=== PATIENT | male | born 1965 | race African-American/Black ===

== ENCOUNTER 2016-12-24 23:42 | Inpatient (IN) | payer MEDICAID ==
[~2016-12-24] VITALS: Ht 172.7 cm; Wt 68.0 kg
[~2016-12-24 23:42] MED LIST: BACLOFEN10 MG GT; COLACE100 MG GT; COREG6.25 MG GT; LISINOPRIL5 MG GT; LOVENOX10 M4 SUBQ; NEXIUM20 M1 GT; ROBITUSSIN COU118 M4 GT; TYLENOL EXTRA500 MG GT; UTI-STAT L3875 MG/31 GT; VENTOLIN HFA18 GM INH
[2016-12-25] VITALS (8 sets, daily range): BP systolic 103–143; BP diastolic 55–80
--- NOTE | 2016-12-25 00:20 | Emergency Room Report ---
History of Present Illness General Chief Complaint: General Complaint Source: Medical Record, EMS Present Illness HPI This is a 51-year-old male with multiple medical problems. He has a history of previous CVA with right-sided weakness. Also has contracted has muscle spasm. He presents with chief complaint of shakiness and tremulous. 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 There was no reported fever or chills. No reported seizure activity. No nausea no vomiting. Allergies: Coded Allergies: No Known Allergies (Unverified , 05/31/16) Patient History Past Medical History: see triage record, old chart reviewed Past Surgical History: other Pertinent Family History: none Social History: Denies: smoking Immunizations: other Reviewed Nursing Documentation: PMH: Agreed, PSxH: Agreed Nursing Documentation-PMH Hx Cardiac Problems: Yes - Angina, HISTORY OF CARDIAC ARREST Hx Hypertension: Yes Hx Cerebrovascular Accident: Yes Review of Systems Eye: Denies: blurred vision, eye pain ENT: Denies: ear pain, nose congestion, throat swelling Respiratory: Denies: cough, shortness of breath Cardiovascular: Denies: chest pain, palpitations Gastrointestinal: Denies: abdominal pain, diarrhea, nausea, vomiting Musculoskeletal: Denies: back pain, joint pain Skin: Denies: rash Neurological: Denies: headache, numbness Endocrine: Denies: increased thirst, increased urine Hematologic/Lymphatic: Denies: easy bruising All Other Systems: negative except mentioned in HPI Physical Exam Vital Signs Date Time Temp Pulse Resp B/P Pulse Ox O2 Delivery O2 Flow Rate FiO2 12/24/16 23:45 99.3 121 37 129/78 90 Room Air vitals with tachycardia and hypoxia. Repeat oxygenation was 95% on room air. rectal temperature 100.8 Sp02 EP Interpretation: reviewed, normal General Appearance: no apparent distress, alert, Chronically Ill Head: normocephalic, atraumatic Eyes: bilateral eye EOMI, bilateral eye PERRL ENT: hearing grossly normal, dry mucus membranes Neck: full range of motion, supple, no meningismus Respiratory: chest non-tender, lungs clear, normal breath sounds Cardiovascular #1: regular rate, rhythm, no murmur, tachycardia Gastrointestinal: normal bowel sounds, non tender, no mass, no organomegaly, no bruit, non-distended Rectal: other - No sacral decubitus Musculoskeletal: back normal, other - Contracted Neurologic: other - Tremulous Psychiatric: mood/affect normal Skin: warm/dry Procedures Critical Care Time Critical Care Time Critical care is mandated in this patient who presented with severe sepsis. Patient require my urgent intervention to attenuate the risks of metabolic collapse which may lead to cardiovascular collapse and . Critical care time is 35 minutes excluding any reportable procedure. Critical care time included evaluation, multiple reevaluation, looking at old charts, interpreting laboratory and diagnostic data, discussing case with patient and family and consultants, and charting. Medical Decision Making Diagnostic Impression: Primary Impression: Severe sepsis Additional Impressions: Acute kidney failure Qualified Codes: N17.9 - Acute kidney failure, unspecified Lactic acid acidosis Dehydration ER Course Patient presents with severe sepsis. Is also very dehydrated and has evidence of acute renal failure. Lactic acid also elevated. I have no obvious source of infection. He's not coughing and lungs are clear. X-rays unremarkable. Urine from a straight cath also unremarkable. He has no abdominal pain. We'll cover with broad-spectrum antibiotics. He has no decubital ulcer. He appear to be more alert after IV fluid. Laboratory Tests Test 12/25/16 00:00 12/25/16 00:22 White Blood Count 18.7 K/UL (4.8-10.8) H Red Blood Count 5.41 M/UL (4.70-6.10) Hemoglobin 16.3 G/DL (14.2-18.0) Hematocrit 50.2 % (42.0-52.0) Mean Corpuscular Volume 93 FL (80-99) Mean Corpuscular Hemoglobin 30.2 PG (27.0-31.0) Mean Corpuscular Hemoglobin Concent 32.5 G/DL (32.0-36.0) Red Cell Distribution Width 12.2 % (11.6-14.8) Platelet Count 488 K/UL (150-450) H Mean Platelet Volume 6.4 FL (6.5-10.1) L Neutrophils (%) (Auto) % (45.0-75.0) Lymphocytes (%) (Auto) % (20.0-45.0) Monocytes (%) (Auto) % (1.0-10.0) Eosinophils (%) (Auto) % (0.0-3.0) Basophils (%) (Auto) % (0.0-2.0) Neutrophils % (Manual) Pending Lymphocytes % (Manual) Pending Platelet Estimate Pending Platelet Morphology Pending Prothrombin Time 11.5 SEC (9.30-11.50) Prothromb Time International Ratio 1.1 (0.9-1.1) Activated Partial Thromboplast Time 27 SEC (23-33) Sodium Level 152 mEQ/L (135-145) H Potassium Level 5.4 mEQ/L (3.4-4.9) H Chloride Level 101 mEQ/L (98-107) Carbon Dioxide Level 29 mEQ/L (20-30) Anion Gap 22 (5-15) H Blood Urea Nitrogen 109 mg/dL (7-23) H Creatinine 2.7 mg/dL (0.7-1.2) H Estimat Glomerular Filtration Rate 30.4 mL/min (>60) Glucose Level 110 mg/dL (74-106) H Lactic Acid Level 4.40 mmol/L (0.66-2.22) H Calcium Level 9.7 mg/dL (8.6-10.2) Total Bilirubin 0.5 mg/dL (0.0-1.2) Aspartate Amino Transf (AST/SGOT) 112 U/L (5-40) H Alanine Aminotransferase (ALT/SGPT) 250 U/L (3-41) H Alkaline Phosphatase 305 U/L (40-129) H Total Creatine Kinase 119 U/L (38-174) Creatine Kinase MB Pending Troponin I < 0.30 ng/mL (<=0.30) Total Protein 8.9 g/dL (6.6-8.7) H Albumin 4.0 g/dL (3.5-5.2) Globulin 4.9 g/dL Albumin/Globulin Ratio 0.8 (1.0-2.7) L Urine Color Yellow Urine Appearance Clear Urine pH 5 (4.5-8.0) Urine Specific [place] 1.020 (1.005-1.035) Urine Protein 1+ (NEGATIVE) H Urine Glucose (UA) Negative (NEGATIVE) Urine Ketones 1+ (NEGATIVE) H Urine Occult Blood Negative (NEGATIVE) Urine Nitrite Negative (NEGATIVE) Urine Bilirubin Negative (NEGATIVE) Urine Urobilinogen 1 MG/DL (0.0-1.0) H Urine Leukocyte Esterase 1+ (NEGATIVE) H Urine RBC 0-2 /HPF (0 - 0) H Urine WBC 0-2 /HPF (0 - 0) Urine Squamous Epithelial Cells Few /LPF (NONE/OCC) Urine Amorphous Sediment Moderate /LPF (NONE) H Urine Bacteria Few /HPF (NONE) Lab Results Impression labs with leukocytosis and acute renal failure EKG Diagnostic Results Rate: normal, tachycardiac Rhythm: NSR ST Segments: no acute changes Rhythm Strip Diag. Results EP Interpretation: yes Rate: 110 Rhythm: NSR, no PVC's, no ectopy Chest X-Ray Diagnostic Results EP Interpretation: Yes Findings: no consolidation, no effusion, no pneumothorax, no acute cardiopulmonary disease Number of Views: 1 Last Vital Signs Date Time Temp Pulse Resp B/P Pulse Ox O2 Delivery O2 Flow Rate FiO2 12/25/16 00:08 100.9 116 30 91 Room Air Status: improved Disposition: ADMITTED INPATIENT Condition: Serious Referrals: BRETT VENCES (PCP) MADHU SLATER M.D. Dec 25, 2016 00:20
[2016-12-25 00:24] LABS: MEAN CORPUSCULAR HEMOGLOBIN 30.2 PG (27.0-31.0); MEAN CORPUSCULAR HGB CONC 32.5 G/DL (32.0-36.0); MEAN CORPUSCULAR VOLUME 93 FL (80-99); MEAN PLATELET VOLUME 6.4 FL (6.5-10.1); PLATELET COUNT 488 K/UL (150-450); RED BLOOD COUNT 5.41 M/UL (4.70-6.10); RED CELL DISTRIBUTION WIDTH 12.2 % (11.6-14.8); WHITE BLOOD COUNT 18.7 K/UL (4.8-10.8)
[2016-12-25 00:28] LABS: APPEARANCE,URINE CLEAR; KETONES,URINE 1+ (NEGATIVE); LEUKOCYTE ESTERASE ,URINE 1+ (NEGATIVE); NITRITE,URINE NEGATIVE (NEGATIVE); PH,URINE 5 (4.5-8.0); PROTEIN,URINE 1+ (NEGATIVE); UROBILINOGEN,URINE 1 MG/DL (0.0-1.0)
[2016-12-25 00:33] LABS: INR 1.1 (0.9-1.1); PROTHROMBIN TIME 11.5 SEC (9.30-11.50)
[2016-12-25 00:39] LABS: ALANINE AMINOTRANSFERASE 250 U/L (3-41); ALBUMIN/GLOBULIN RATIO 0.8 (1.0-2.7); ANION GAP 22 (5-15); ASPARTATE AMINO TRANSFERASE 112 U/L (5-40); CALCIUM 9.7 mg/dL (8.6-10.2); CARBON DIOXIDE 29 mEQ/L (20-30); CHLORIDE 101 mEQ/L (98-107); CREATININE 2.7 mg/dL (0.7-1.2); GLOMERULAR FILTRATION RATE 30.4 mL/min (>60); HEMOLYSIS 71; POTASSIUM 5.4 mEQ/L (3.4-4.9); SODIUM 152 mEQ/L (135-145); TOTAL PROTEIN 8.9 g/dL (6.6-8.7)
[2016-12-25 00:40] LABS: AMORPHOUS SEDIMENT,UR MODERATE /LPF; BACTERIA,URINE FEW /HPF; RBC,URINE 0-2 /HPF (0 - 0); SQUAMOUS EPITHELIAL CELL,UR FEW /LPF (NONE/OCC); WBC,URINE 0-2 /HPF (0 - 0)
[2016-12-25 00:42] LABS: REFLEX LACTIC ACID YES OR NO YES
[2016-12-25] MEDS ORDERED: Acetaminophen 500mg (ES) tab ORAL ONE (00:45)
[2016-12-25 00:53] LABS: TROPONIN I < 0.30 ng/mL (<=0.30)
[2016-12-25 01:06] LABS: BAND NEUTROPHILS % (MANUAL) 1 % (0-8); BASOPHILS % (MANUAL) 0 % (0-2); EOSINOPHILS % (MANUAL) 0 % (0-3); LYMPHOCYTES % (MANUAL) 23 % (20-45); NEUTROPHILS % (MANUAL) 72 % (45-75); PLATELET ESTIMATE ADEQUATE; PLATELET MORPHOLOGY NORMAL; TOTAL CELLS COUNTED 100
[2016-12-25] MEDS ORDERED: Zosyn 4.5gm inj ONE (01:07)
[2016-12-25] MEDS ORDERED: Piperacillin/Tazobactam 4.5 GM in NS 110 ML IVPB ONE (01:15)
[2016-12-25] MEDS ORDERED: LACTULOSE20 GM/301 ORAL (03:05)
[2016-12-25] MEDS ORDERED: REGLAN5 MG GT (03:05)
[2016-12-25] MEDS ORDERED: VENTOLIN HFA18 GM INH (03:05)
[2016-12-25] MEDS ORDERED: FLEET ENEMA133 M1 RC (03:05)
[2016-12-25] MEDS ORDERED: ACETAMINOPHEN325 M1 GT (03:42)
[2016-12-25 05:48] LABS: CKMB < 1.5 ng/mL (< 6.7)
[2016-12-25] MEDS ORDERED: Morphine Sulfate 2mg/ml Inj IVP PRN ×2 (08:30→15:00)
[2016-12-25] MEDS ORDERED: Miralax 17gm pkt ORAL PRN ×2 (08:30→15:00)
[2016-12-25] MEDS ORDERED: D5 1/2NS 1,000 ML IV SCH (08:30)
[2016-12-25] MEDS ORDERED: DuoNeb 0.5-3(2.5)mg/3ml neb HHN PRN ×2 (08:30→15:00)
[2016-12-25] MEDS ORDERED: Nitroglycerin Subl 0.4mg tab (Bottle Of 25) SL PRN ×2 (08:30→15:00)
[2016-12-25] MEDS ORDERED: Heparin 5000 units/ml inj SUBQ SCH (09:00)
[2016-12-25] MEDS ORDERED: Carvedilol 6.25mg Tab GT SCH (09:00)
[2016-12-25] MEDS ORDERED: Cefepime HCl 2 GM in D5W 110 ML IV SCH (09:30)
[2016-12-25] MEDS ORDERED: Vancomycin 1 GM in D5W 275 ML IVPB SCH (10:00)
--- NOTE | 2016-12-25 10:15 | Diagnostic Imaging Report ---
Indication: Dyspnea Comparison: None A single view chest radiograph was obtained. Findings: There is a retrocardiac density present. Cardio mediastinal silhouette is normal. Pulmonary vascularity is normal. No pleural effusion seen. Bones are unremarkable. Impression: Left basilar infiltrate versus atelectasis.
--- NOTE | 2016-12-25 12:28 | History and Physical ---
History of Present Illness General Date patient seen: Dec 25, 2016 Reason for Hospitalization: General Complaint Present Illness HPI 51-year-old male with PMHx of hypoxemic encephalopathy, PEG, bed bound, CVA with right-sided weakness, detention resident SAM with CC of shakiness and tremulous. He had ATN and leukocytosis and admitted to telemetry for further work up. Pt's mother is at the bed site and helping with taking history.l Allergies: Coded Allergies: No Known Allergies (Unverified , 05/31/16) Medication History Scheduled Baclofen* (Baclofen*), 10 MG GT THREE TIMES A DAY, (Reported) Carvedilol (Coreg), 6.25 MG GT TWICE A DAY, (Reported) Cran/Vitc/Mannose/Inulin/Brom (Uti-Stat Liquid), 30 ML GT DAILY, (Reported) Enoxaparin* (Lovenox*), 40 MG SUBQ DAILY, (Reported) Esomeprazole Magnesium (Nexium), 20 MG GT DAILY, (Reported) Lactulose (Lactulose*), 20 ML ORAL DAILY, (Reported) Lisinopril (Lisinopril*), 2.5 MG GT DAILY, (Reported) Scheduled PRN Acetaminophen* (Acetaminophen 325MG Tablet*), 650 MG GT Q4H PRN for Fever/ Headache/Mild Pain, (Reported) Albuterol Sulfate (Ventolin Hfa), 1 PUFF INH EVERY 3 HOURS PRN for Shortness of Breath, (Reported) Guaifenesin/Dextromethorphan (Robitussin Cough-Chest Dm Liq), 10 MG GT for For Cough, (Reported) Metoclopramide Hcl* (Reglan*), 5 MG GT EVERY 6 HOURS PRN for Nausea & Vomiting, (Reported) Miscellaneous Medications Na Phos,M-B/Na Phos,Di-Ba (Fleet Enema), 133 ML RC, (Reported) Discontinued Medications Acetaminophen* (Tylenol Extra Strength*), 325 MG GT Q4HR, (Reported) Discontinued Reason: Pt stopped taking med Albuterol Sulfate (Ventolin Hfa), 1 PUFF INH EVERY 6 HOURS, (Reported) Discontinued Reason: Pt stopped taking med Docusate Sodium* (Colace*), 100 MG GT TWICE A DAY, (Reported) Discontinued Reason: Pt stopped taking med Patient History Healthcare decision maker Resuscitation status Full Code Advanced Directive on File Past Medical/Surgical History Past Medical/Surgical History: (1) Hypoxemic encephalopathy (2) History of CVA (cerebrovascular accident) (3) Status post CVA Review of Systems All Other Systems: negative except mentioned in HPI Physical Exam General Appearance: WD/WN Lines, tubes and drains: peripheral, gtube HEENT: normocephalic, atraumatic Neck: non-tender, normal alignment Respiratory/Chest: chest wall non-tender, normal breath sounds Cardiovascular/Chest: normal peripheral pulses, normal rate Abdomen: normal bowel sounds Genitourinary/Rectal: normal genital exam, heme negative stool Extremities: non-tender Last 24 Hour Vital Signs Date Time Temp Pulse Resp B/P Pulse Ox O2 Delivery O2 Flow Rate FiO2 12/25/16 12:00 96.8 92 17 104/55 99 Nasal Cannula 2.0 12/25/16 08:30 102 143/61 12/25/16 08:00 103 12/25/16 08:00 97.3 102 17 143/61 96 Nasal Cannula 2.0 12/25/16 04:00 106 12/25/16 03:49 99.0 109 21 117/58 93 Nasal Cannula 2.0 12/25/16 03:41 99.8 12/25/16 03:10 99.8 121 32 117/80 94 Nasal Cannula 2.0 12/25/16 02:29 99.8 121 32 117/80 94 Nasal Cannula 2.0 12/25/16 01:52 100.8 105 22 114/59 94 Room Air 12/25/16 00:08 100.9 116 30 91 Room Air 12/24/16 23:45 99.3 121 37 129/78 90 Room Air Intake and Output 12/24/16 12/25/16 19:00 07:00 Intake Total 2210 ml Output Total 600 ml Balance 1610 ml Intake Oral 0 ml IV Total 2210 ml Output Urine Total 600 ml Laboratory Tests Test 12/25/16 00:00 12/25/16 00:22 12/25/16 02:00 White Blood Count 18.7 K/UL (4.8-10.8) H Red Blood Count 5.41 M/UL (4.70-6.10) Hemoglobin 16.3 G/DL (14.2-18.0) Hematocrit 50.2 % (42.0-52.0) Mean Corpuscular Volume 93 FL (80-99) Mean Corpuscular Hemoglobin 30.2 PG (27.0-31.0) Mean Corpuscular Hemoglobin Concent 32.5 G/DL (32.0-36.0) Red Cell Distribution Width 12.2 % (11.6-14.8) Platelet Count 488 K/UL (150-450) H Mean Platelet Volume 6.4 FL (6.5-10.1) L Neutrophils (%) (Auto) % (45.0-75.0) Lymphocytes (%) (Auto) % (20.0-45.0) Monocytes (%) (Auto) % (1.0-10.0) Eosinophils (%) (Auto) % (0.0-3.0) Basophils (%) (Auto) % (0.0-2.0) Differential Total Cells Counted 100 Neutrophils % (Manual) 72 % (45-75) Lymphocytes % (Manual) 23 % (20-45) Monocytes % (Manual) 4 % (1-10) Eosinophils % (Manual) 0 % (0-3) Basophils % (Manual) 0 % (0-2) Band Neutrophils 1 % (0-8) Platelet Estimate Adequate Platelet Morphology Normal Red Blood Cell Morphology Normal Prothrombin Time 11.5 SEC (9.30-11.50) Prothromb Time International Ratio 1.1 (0.9-1.1) Activated Partial Thromboplast Time 27 SEC (23-33) Sodium Level 152 mEQ/L (135-145) H Potassium Level 5.4 mEQ/L (3.4-4.9) H Chloride Level 101 mEQ/L (98-107) Carbon Dioxide Level 29 mEQ/L (20-30) Anion Gap 22 (5-15) H Blood Urea Nitrogen 109 mg/dL (7-23) H Creatinine 2.7 mg/dL (0.7-1.2) H Estimat Glomerular Filtration Rate 30.4 mL/min (>60) Glucose Level 110 mg/dL (74-106) H Lactic Acid Level 4.40 mmol/L (0.66-2.22) H 3.30 mmol/L (0.66-2.22) H Calcium Level 9.7 mg/dL (8.6-10.2) Total Bilirubin 0.5 mg/dL (0.0-1.2) Aspartate Amino Transf (AST/SGOT) 112 U/L (5-40) H Alanine Aminotransferase (ALT/SGPT) 250 U/L (3-41) H Alkaline Phosphatase 305 U/L (40-129) H Total Creatine Kinase 119 U/L (38-174) Creatine Kinase MB < 1.5 ng/mL (< 6.7) Creatine Kinase MB Relative Index 1.2 Troponin I < 0.30 ng/mL (<=0.30) Total Protein 8.9 g/dL (6.6-8.7) H Albumin 4.0 g/dL (3.5-5.2) Globulin 4.9 g/dL Albumin/Globulin Ratio 0.8 (1.0-2.7) L Urine Color Yellow Urine Appearance Clear Urine pH 5 (4.5-8.0) Urine Specific [place] 1.020 (1.005-1.035) Urine Protein 1+ (NEGATIVE) H Urine Glucose (UA) Negative (NEGATIVE) Urine Ketones 1+ (NEGATIVE) H Urine Occult Blood Negative (NEGATIVE) Urine Nitrite Negative (NEGATIVE) Urine Bilirubin Negative (NEGATIVE) Urine Urobilinogen 1 MG/DL (0.0-1.0) H Urine Leukocyte Esterase 1+ (NEGATIVE) H Urine RBC 0-2 /HPF (0 - 0) H Urine WBC 0-2 /HPF (0 - 0) Urine Squamous Epithelial Cells Few /LPF (NONE/OCC) Urine Amorphous Sediment Moderate /LPF (NONE) H Urine Bacteria Few /HPF (NONE) Height (Feet): 5 Height (Inches): 8.00 Weight (Pounds): 150 Medications Current Medications Medications (Trade) Dose Ordered Sig/Danita Route PRN Reason Start Time Stop Time Status Last Admin Dose Admin Acetaminophen (Tylenol) 650 mg Q4H PRN ORAL fever>100.5 12/25/16 07:15 01/24/17 07:14 Albuterol/ Ipratropium 3 ml 3 ml Q4H PRN HHN Shortness of Breath 12/25/16 08:30 12/30/16 08:29 Baclofen (Lioresal) 10 mg THREE TIMES A DAY GT 12/25/16 09:00 01/24/17 08:59 12/25/16 08:30 Carvedilol (Coreg) 6.25 mg TWICE A DAY GT 12/25/16 09:00 01/24/17 08:59 12/25/16 08:30 Cefepime HCl 2 gm/ Dextrose 110 ml @ 220 mls/hr Q24H IV 12/25/16 09:30 01/01/17 09:29 12/25/16 10:12 Dextrose/Sodium Chloride (D5 0.45% NS) 1,000 ml @ 150 mls/hr Q6H40M IV 12/25/16 08:30 01/24/17 08:29 12/25/16 08:31 Heparin Sodium (Porcine) (Heparin 5000 units/ml) 5,000 units EVERY 12 HOURS SUBQ 12/25/16 09:00 01/24/17 08:59 12/25/16 08:35 Morphine Sulfate (Morphine Sulfate) 2 mg Q4H PRN IVP Moderate Pain (Pain Scale 4-6) 12/25/16 08:30 01/01/17 08:29 Nitroglycerin 0.4 mg 0.4 mg Q5M PRN SL Prn Chest Pain 12/25/16 08:30 01/24/17 08:29 Ondansetron HCl (Zofran) 4 mg Q6H PRN IVP Nausea & Vomiting 12/25/16 08:30 01/24/17 08:29 Polyethylene Glycol (Miralax) 17 gm DAILYPRN PRN ORAL Constipation 12/25/16 08:30 01/24/17 08:29 Temazepam (Restoril) 15 mg HSPRN PRN ORAL Insomnia 12/25/16 21:00 01/01/17 20:59 Vancomycin HCl/ Dextrose (Vancomycin/D5W) 275 ml @ 183.3 mls/ hr Q24H IVPB 12/25/16 10:00 12/30/16 09:59 12/25/16 10:52 Assessment/Plan Problem List: (1) Severe sepsis ICD Codes: A41.9 - Sepsis, unspecified organism; R65.20 - Severe sepsis without septic shock SNOMED: 75105033 (2) ATN (acute tubular necrosis) ICD Codes: N17.0 - Acute kidney failure with tubular necrosis SNOMED: 45835293 (3) Dehydration ICD Codes: E86.0 - Dehydration; R65.20 - Severe sepsis without septic shock SNOMED: 43121596 (4) PEG (percutaneous endoscopic gastrostomy) adjustment/replacement/removal ICD Codes: Z43.1 - Encounter for attention to gastrostomy SNOMED: 555430953, 614678769 (5) History of CVA (cerebrovascular accident) ICD Codes: Z86.73 - Personal history of transient ischemic attack (TIA), and cerebral infarction without residual deficits SNOMED: 886602631 Assessment/Plan IV fluids IV antibiotics check cultures renal f/u Neuro f/u for seizures. ANIBAL WALSH Dec 25, 2016 12:28
[2016-12-25] MEDS ORDERED: LORazepam Inj 2mg/ml 1ml IV ONE (12:45)
--- NOTE | 2016-12-25 12:49 | Consultation ---
Consult Note Consult Note This is a 51-year-old male with multiple medical problems. He has a history of previous CVA with right-sided weakness. Also has contracted has muscle spasm. He presents with chief complaint of shakiness and tremulous. 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 There was no reported fever or chills. No reported seizure activity. No nausea no vomiting. Hx Cardiac Problems: Yes - Angina, HISTORY OF CARDIAC ARREST Hx Hypertension: Yes Hx Cerebrovascular Accident: Yes examined - data reviewed Assessment/Plan Acute renal failure- Dehydration Sepsis CVA / Hypoxic Encephalopathy PEG High LFTs Plan: Hydrate- Monitor renal parameters Avoid Nephrotoxics MARCUS FERNANDEZ Dec 25, 2016 12:49
--- NOTE | 2016-12-25 12:51 | Neurology Progress Note ---
Objective Physical Exam Last Vital Signs Date Time Temp Pulse Resp B/P Pulse Ox O2 Delivery O2 Flow Rate FiO2 12/25/16 12:00 96.8 92 17 104/55 99 Nasal Cannula 2.0 Laboratory Tests Test 12/25/16 00:00 12/25/16 00:22 12/25/16 02:00 White Blood Count 18.7 K/UL (4.8-10.8) H Red Blood Count 5.41 M/UL (4.70-6.10) Hemoglobin 16.3 G/DL (14.2-18.0) Hematocrit 50.2 % (42.0-52.0) Mean Corpuscular Volume 93 FL (80-99) Mean Corpuscular Hemoglobin 30.2 PG (27.0-31.0) Mean Corpuscular Hemoglobin Concent 32.5 G/DL (32.0-36.0) Red Cell Distribution Width 12.2 % (11.6-14.8) Platelet Count 488 K/UL (150-450) H Mean Platelet Volume 6.4 FL (6.5-10.1) L Neutrophils (%) (Auto) % (45.0-75.0) Lymphocytes (%) (Auto) % (20.0-45.0) Monocytes (%) (Auto) % (1.0-10.0) Eosinophils (%) (Auto) % (0.0-3.0) Basophils (%) (Auto) % (0.0-2.0) Differential Total Cells Counted 100 Neutrophils % (Manual) 72 % (45-75) Lymphocytes % (Manual) 23 % (20-45) Monocytes % (Manual) 4 % (1-10) Eosinophils % (Manual) 0 % (0-3) Basophils % (Manual) 0 % (0-2) Band Neutrophils 1 % (0-8) Platelet Estimate Adequate Platelet Morphology Normal Red Blood Cell Morphology Normal Prothrombin Time 11.5 SEC (9.30-11.50) Prothromb Time International Ratio 1.1 (0.9-1.1) Activated Partial Thromboplast Time 27 SEC (23-33) Sodium Level 152 mEQ/L (135-145) H Potassium Level 5.4 mEQ/L (3.4-4.9) H Chloride Level 101 mEQ/L (98-107) Carbon Dioxide Level 29 mEQ/L (20-30) Anion Gap 22 (5-15) H Blood Urea Nitrogen 109 mg/dL (7-23) H Creatinine 2.7 mg/dL (0.7-1.2) H Estimat Glomerular Filtration Rate 30.4 mL/min (>60) Glucose Level 110 mg/dL (74-106) H Lactic Acid Level 4.40 mmol/L (0.66-2.22) H 3.30 mmol/L (0.66-2.22) H Calcium Level 9.7 mg/dL (8.6-10.2) Total Bilirubin 0.5 mg/dL (0.0-1.2) Aspartate Amino Transf (AST/SGOT) 112 U/L (5-40) H Alanine Aminotransferase (ALT/SGPT) 250 U/L (3-41) H Alkaline Phosphatase 305 U/L (40-129) H Total Creatine Kinase 119 U/L (38-174) Creatine Kinase MB < 1.5 ng/mL (< 6.7) Creatine Kinase MB Relative Index 1.2 Troponin I < 0.30 ng/mL (<=0.30) Total Protein 8.9 g/dL (6.6-8.7) H Albumin 4.0 g/dL (3.5-5.2) Globulin 4.9 g/dL Albumin/Globulin Ratio 0.8 (1.0-2.7) L Urine Color Yellow Urine Appearance Clear Urine pH 5 (4.5-8.0) Urine Specific [place] 1.020 (1.005-1.035) Urine Protein 1+ (NEGATIVE) H Urine Glucose (UA) Negative (NEGATIVE) Urine Ketones 1+ (NEGATIVE) H Urine Occult Blood Negative (NEGATIVE) Urine Nitrite Negative (NEGATIVE) Urine Bilirubin Negative (NEGATIVE) Urine Urobilinogen 1 MG/DL (0.0-1.0) H Urine Leukocyte Esterase 1+ (NEGATIVE) H Urine RBC 0-2 /HPF (0 - 0) H Urine WBC 0-2 /HPF (0 - 0) Urine Squamous Epithelial Cells Few /LPF (NONE/OCC) Urine Amorphous Sediment Moderate /LPF (NONE) H Urine Bacteria Few /HPF (NONE) Impression/Recommendations Recommendations #[id number] RAI DICKERSON Dec 25, 2016 12:51
[2016-12-25] MEDS ORDERED: levETIRAcetam 500mg/5ml Liquid NG SCH (13:00)
[2016-12-25] MEDS ORDERED: LORazepam Inj 2mg/ml 1ml IV PRN ×2 (13:45→15:00)
[2016-12-25 15:26] LABS: IONIZED CALCIUM 1.08 mmol/L (1.10-1.35)
--- NOTE | 2016-12-25 16:12 | Diagnostic Imaging Report ---
Indication: Altered mental status Technique: Contiguous 5 mm thick transaxial imaging of the head obtained in a Siemens Sensation [address] scanner. Soft tissue and bone windows generated. Total Dose length Product (DLP): [address] Dose Index Volume (CTDIvol): 70.38 mGy Comparison: none Findings: There is cortical encephalomalacia involving left parafalcine frontal lobe (left ALIYA distribution) as well as a small left temporal lobe encephalomalacia (left MCA tissue lesion). Findings consistent with old infarct. There is mild generalized prominence of the ventricles, basal cisterns, and cerebral sulci consistent with atrophy. Mild, nonspecific, white matter hypoattenuation is noted throughout the brain consistent with chronic small vessel disease. There is no midline shift, edema, acute hemorrhage, mass effect, or abnormal extra-axial fluid collections. Bones and extra osseous soft tissues are unremarkable. Impression: No acute intracranial bleed, mass effect or edema. Old left frontal lobe infarcts as described above. Mild atrophy of the brain. Nonspecific white matter hypoattenuation probably due to chronic small vessel disease. The CT scanner at [facility] is accredited by the [employer] and the scans are performed using protocols designed to limit radiation exposure to as low as reasonably achievable to attain images of sufficient resolution adequate for diagnostic evaluation.
[2016-12-25] MEDS: D5 1/2NS 1,000 ML IV SCH ×2 (16:19→20:57)
--- NOTE | 2016-12-25 17:08 | Consultation ---
DATE OF CONSULTATION: 12/25/2016 NEUROLOGICAL CONSULTATION CONSULTING PHYSICIAN: Corwin Wilkins M.D. REQUESTING PHYSICIAN: Bam Powell M.D. HISTORY OF PRESENT ILLNESS: The patient is a 51-year-old man, seen in neurological consultation to evaluate the new onset of generalized, predominantly left-sided involuntary jerking. The patient was brought to this hospital after developing "muscle spasm," shakiness, and tremulousness, but no fever, no chills, and no evidence of previous seizure activities. His vital signs on admission were stable except temperature 99.3 degrees. The patient is suspected to have severe sepsis with acute kidney failure, lactic acidosis, and dehydration. His initial diagnostic studies included a chest x-ray revealing left basilar infiltrate versus atelectasis. Lab work included CBC study with WBC 18.7. Urinalysis, 1+ leukocyte esterase and 1+ ketone. Chemistry panel with sodium 152, BUN of 109, creatinine 2.7, and lactic acid 4.40. Elevated AST 112, ALT 250, and alkaline phosphatase 305. Normal troponin. Normal calcium level. Vital signs since admission included sinus tachycardia. Since admission until present time, the patient continued to have intermittent irregular shaking, predominantly left upper extremity. According to the patient's mother, who was present during this examination, known that five years ago after having a heavy drug abuse, he fell down and had a severe head trauma and developed cardiopulmonary arrest. Care was provided with delay at that time. The patient developed severe anoxic brain damage remaining with a predominantly right-sided hemiplegia, speech abnormality, cognitive loss, spending at the nursing facility, spending days sitting in a wheelchair, able to recognize the family, able to say few words, or follow simple commands, but has no spontaneous speech. Does not interact with others and placed on percutaneous endoscopic gastrostomy feeding. Treatment prior to admission included albuterol, baclofen, Lovenox, lactulose, lisinopril, and Reglan. PAST MEDICAL HISTORY: His past medical history as mentioned, he has a history of stroke. ALLERGIES: None reported. SOCIAL HISTORY: Resident of nursing facility. REVIEW OF SYSTEM: Unable to obtain due to the patient's status. PHYSICAL EXAMINATION: GENERAL: This is a well-developed and well-nourished man, lying in bed with head turned to the right. He has intermittent irregular twitching and jerking, predominantly left upper extremity, but at times combined with the both upper extremities and slight shaking left foot. During shaking, the patient remained conscious and able to follow one or two simple command. He has eye contact. Peripheral pulses 1+ and symmetric. MENTAL STATUS: The patient is obtunded, but able to keep eye contact on command. He has remained nonverbal. CRANIAL NERVE II: Pupils both responding to light and accommodation. Extraocular movement full range. CRANIAL NERVE V: Normal corneal responses. CRANIAL NERVE VII: No facial twitching. CRANIAL NERVE VIII: Grossly normal hearing. CRANIAL NERVES IX THROUGH XII: Reduced gag response. MOTOR EXAMINATION: The spasticity in right upper and right lower extremity, increased muscle tone in the left extremities, involuntary irregular jerking of both upper extremities, predominantly on the left, and occasional slight jerks in the left foot. Deep tendon reflexes are brisk, 3+, higher on the right, and a bilateral foot drop. Unable to obtain Babinski sign. SENSORY EXAMINATION: No response to pin stimulation. IMPRESSION: 1. Status post severe ischemic anoxic encephalopathy. 2. New onset of involuntary irregular muscle jerking in the setting of significant metabolic derangement. Rule out a myoclonus, rule out ongoing seizure activity. 3. Renal insufficiency. 4. Abnormal liver enzymes. 5. Sinus tachycardia. RECOMMENDATIONS: Ativan 1 mg IV push now. Laboratory work to include B12, folate, thyroid function, and ionized magnesium and calcium levels. Check ammonia level. Get EEG as soon as possible to evaluate for ongoing seizure event. Meanwhile prophylactically, we will start on Keppra 250 mg b.i.d., Ativan 1 mg q.1 hour p.r.n. for breakthrough event. Treatment to hold all unessential medications, but continue with IV fluids and antibiotics for presumed underlying sepsis. Thank you for allowing me to see this interesting patient in neurological consultation. Corwin Wilkins M.D. DR: MATT JOB#: [id number] CC:
[2016-12-25] MEDS: Carvedilol 6.25mg Tab GT SCH (18:15)
--- NOTE | 2016-12-25 18:31 | Cardiology Report ---
APPROVED REPORT EKG Measurement Heart [id number] Sinus tachycardia with fusion complexes Possible Left atrial enlargement Low voltage QRS Anteroseptal infarct, age undetermined Abnormal ECG
[2016-12-25] MEDS: Heparin 5000 units/ml inj SUBQ SCH (20:21)
[2016-12-25] MEDS: levETIRAcetam 500mg/5ml Liquid GT SCH (20:57)
[2016-12-25] MEDS ORDERED: levETIRAcetam 500mg/5ml Liquid GT SCH (21:00)
[2016-12-26] MEDS: D5 1/2NS 1,000 ML IV SCH ×2 (03:44→11:30)
[2016-12-26 04:00] VITALS: BP 110/61
[2016-12-26 07:01] LABS: CRP QUANT 12.8 mg/dL (< 0.5); MAGNESIUM 2.8 mg/dL (1.7-2.5); PHOSPHORUS 3.7 mg/dL (2.5-4.8); URIC ACID 8.2 mg/dL (3.0-7.5)
[2016-12-26 07:02] LABS: ALANINE AMINOTRANSFERASE 134 U/L (3-41); ALBUMIN/GLOBULIN RATIO 0.8 (1.0-2.7); ANION GAP 18 (5-15); ASPARTATE AMINO TRANSFERASE 44 U/L (5-40); CALCIUM 9.2 mg/dL (8.6-10.2); CARBON DIOXIDE 25 mEQ/L (20-30); CHLORIDE 109 mEQ/L (98-107); CREATININE 1.3 mg/dL (0.7-1.2); GLOMERULAR FILTRATION RATE > 60 mL/min (>60); HEMOLYSIS 2; POTASSIUM 3.4 mEQ/L (3.4-4.9); SODIUM 152 mEQ/L (135-145)
[2016-12-26 07:23] LABS: BASOPHILS % (AUTO) 1.3 % (0.0-2.0); EOSINOPHILS % (AUTO) 3.6 % (0.0-3.0); LYMPHOCYTES % (AUTO) 23.5 % (20.0-45.0); MEAN CORPUSCULAR HGB CONC 31.8 G/DL (32.0-36.0); MEAN CORPUSCULAR VOLUME 94 FL (80-99); MEAN PLATELET VOLUME 6.9 FL (6.5-10.1); MONOCYTES % (AUTO) 6.2 % (1.0-10.0); NEUTROPHILS % (AUTO) 65.4 % (45.0-75.0); PLATELET COUNT 383 K/UL (150-450); RED BLOOD COUNT 4.43 M/UL (4.70-6.10); RED CELL DISTRIBUTION WIDTH 12.3 % (11.6-14.8); WHITE BLOOD COUNT 8.8 K/UL (4.8-10.8)
[2016-12-26 07:38] LABS: HEMOGLOBIN A1C 5.8 % (< 6.0)
[2016-12-26 08:00] VITALS: BP 106/66
[2016-12-26] MEDS: Carvedilol 6.25mg Tab GT SCH ×2 (08:38→20:09)
[2016-12-26] MEDS: levETIRAcetam 500mg/5ml Liquid GT SCH ×2 (08:38→21:55)
[2016-12-26] MEDS: Heparin 5000 units/ml inj SUBQ SCH ×2 (08:56→21:56)
[2016-12-26] MEDS ORDERED: Tubing IV Secondary IV ONE (09:06)
[2016-12-26] MEDS ORDERED: Sterile Water For Irrig 2000ml IRRIG ONE (09:06)
[2016-12-26] MEDS ORDERED: D5 1/2NS 1000ml IV ONE (09:06)
[2016-12-26] MEDS ORDERED: NS 275ml ONE (09:06)
[2016-12-26] MEDS ORDERED: Cefepime HCl 2 GM in D5W 110 ML IV SCH (09:30)
[2016-12-26] MEDS: Vancomycin 1 GM in D5W 275 ML IVPB SCH (10:30)
[2016-12-26 10:36] LABS: CHOLESTEROL 128 mg/dL (< 200); CHOLESTEROL/HDL RATIO 4.1 (3.3-4.4); LDL CHOLESTEROL (CALC.) 73 mg/dL (60-99)
--- NOTE | 2016-12-26 11:46 | General Progress Note ---
Assessment/Plan Status: stable Status Narrative renal parameters im proved Assessment/Plan Status: Acute renal failure- resolving Dehydration resolving Sepsis CVA / Hypoxic Encephalopathy PEG High LFTs ? Keppra related ? Plan: change to D5 K supplement as needed Monitor renal parameters Avoid Nephrotoxics Subjective ROS Limited/Unobtainable: No Allergies: Coded Allergies: No Known Allergies (Unverified , 05/31/16) Objective Last 24 Hour Vital Signs Date Time Temp Pulse Resp B/P Pulse Ox O2 Delivery O2 Flow Rate FiO2 12/26/16 08:38 70 106/66 12/26/16 08:00 98.0 70 18 106/66 97 Room Air 12/26/16 06:42 71 18 Nasal Cannula 4.0 12/26/16 06:42 98 Room Air 12/26/16 04:00 97.9 69 18 110/61 95 Room Air 12/25/16 23:56 98.6 75 20 104/69 96 Simple Mask 12/25/16 20:00 97.7 82 22 126/67 92 Nasal Cannula 12/25/16 19:37 95 Nasal Cannula 4.0 36 12/25/16 19:35 74 18 Nasal Cannula 4.0 36 12/25/16 18:47 98.1 12/25/16 18:15 86 114/65 12/25/16 16:00 98.1 86 22 103/70 97 Nasal Cannula 2.0 12/25/16 12:00 96.8 92 17 104/55 99 Nasal Cannula 2.0 12/25/16 12:00 92 Intake and Output 12/25/16 12/26/16 19:00 07:00 Intake Total 2596.6 ml 2370 ml Output Total 1200 ml 1500 ml Balance 1396.6 ml 870 ml Free Water 200 ml 200 ml IV Total 2086.6 ml 1650 ml Tube Feeding 310 ml 520 ml Output Urine Total 1200 ml 500 ml Stool Total 1000 ml Laboratory Tests 12/25/16 13:30: Urine Random Sodium 50 12/25/16 14:40: Erythrocyte Sedimentation Rate 3, Ionized Calcium (Measured) 1.08L, Ammonia 40, Anti-Nuclear Antibody Screen [Pending] 12/26/16 05:10: White Blood Count 8.8#, Red Blood Count 4.43L, Hemoglobin 13.3L, Hematocrit 41.7L, Mean Corpuscular Volume 94, Mean Corpuscular Hemoglobin 30.0, Mean Corpuscular Hemoglobin Concent 31.8L, Red Cell Distribution Width 12.3, Platelet Count 383, Mean Platelet Volume 6.9, Neutrophils (%) (Auto) 65.4, Lymphocytes (%) (Auto) 23.5, Monocytes (%) (Auto) 6.2, Eosinophils (%) (Auto) 3.6H, Basophils (%) (Auto) 1.3, Sodium Level 152H, Potassium Level 3.4, Chloride Level 109H, Carbon Dioxide Level 25, Anion Gap 18H, Blood Urea Nitrogen 49#H, Creatinine 1.3#H, Estimat Glomerular Filtration Rate > 60, Glucose Level 131H, Hemoglobin A1c 5.8, Uric Acid 8.2H, Calcium Level 9.2, Phosphorus Level 3.7, Magnesium Level 2.8H, Total Bilirubin 0.4, Gamma Glutamyl Transpeptidase 416H, Aspartate Amino Transf (AST/SGOT) 44H, Alanine Aminotransferase (ALT/SGPT) 134H, Alkaline Phosphatase 206H, Total Creatine Kinase 392H, C-Reactive Protein, Quantitative 12.8H, Pro-B-Type Natriuretic Peptide 452H, Total Protein 7.0, Albumin 3.3L, Globulin 3.7, Albumin/Globulin Ratio 0.8L, Triglycerides Level 119, Cholesterol Level 128, LDL Cholesterol 73, HDL Cholesterol 31, Cholesterol/HDL Ratio 4.1 Height (Feet): 5 Height (Inches): 8.00 Weight (Pounds): 150 General Appearance: no apparent distress Cardiovascular: regular rhythm Respiratory/Chest: decreased breath sounds Abdomen: soft Objective no other changes MARCUS FERNANDEZ Dec 26, 2016 11:46
[2016-12-26 12:00] VITALS: BP 112/71
[2016-12-26] MEDS ORDERED: KCl 10% 40mEq/30ml liquid GT ONE (12:15)
--- NOTE | 2016-12-26 13:30 | Neurology Progress Note ---
Interim History Interim History ROS Limited/Unobtainable: No Complaints: mute Events: no sz activity Objective Physical Exam Last Vital Signs Date Time Temp Pulse Resp B/P Pulse Ox O2 Delivery O2 Flow Rate FiO2 12/26/16 12:00 97.8 79 20 112/71 97 Room Air 12/26/16 06:42 4.0 12/25/16 19:37 36 Laboratory Tests Test 12/25/16 13:30 12/25/16 14:40 12/26/16 05:10 Urine Random Sodium 50 mmol/L Erythrocyte Sedimentation Rate 3 MM/HR (0-15) Ionized Calcium (Measured) 1.08 mmol/L (1.10-1.35) L Ammonia 40 umol/L (16-60) Anti-Nuclear Antibody Screen Pending White Blood Count 8.8 K/UL (4.8-10.8) # Red Blood Count 4.43 M/UL (4.70-6.10) L Hemoglobin 13.3 G/DL (14.2-18.0) L Hematocrit 41.7 % (42.0-52.0) L Mean Corpuscular Volume 94 FL (80-99) Mean Corpuscular Hemoglobin 30.0 PG (27.0-31.0) Mean Corpuscular Hemoglobin Concent 31.8 G/DL (32.0-36.0) L Red Cell Distribution Width 12.3 % (11.6-14.8) Platelet Count 383 K/UL (150-450) Mean Platelet Volume 6.9 FL (6.5-10.1) Neutrophils (%) (Auto) 65.4 % (45.0-75.0) Lymphocytes (%) (Auto) 23.5 % (20.0-45.0) Monocytes (%) (Auto) 6.2 % (1.0-10.0) Eosinophils (%) (Auto) 3.6 % (0.0-3.0) H Basophils (%) (Auto) 1.3 % (0.0-2.0) Sodium Level 152 mEQ/L (135-145) H Potassium Level 3.4 mEQ/L (3.4-4.9) Chloride Level 109 mEQ/L (98-107) H Carbon Dioxide Level 25 mEQ/L (20-30) Anion Gap 18 (5-15) H Blood Urea Nitrogen 49 mg/dL (7-23) #H Creatinine 1.3 mg/dL (0.7-1.2) #H Estimat Glomerular Filtration Rate > 60 mL/min (>60) Glucose Level 131 mg/dL (74-106) H Hemoglobin A1c 5.8 % (< 6.0) Uric Acid 8.2 mg/dL (3.0-7.5) H Calcium Level 9.2 mg/dL (8.6-10.2) Phosphorus Level 3.7 mg/dL (2.5-4.8) Magnesium Level 2.8 mg/dL (1.7-2.5) H Total Bilirubin 0.4 mg/dL (0.0-1.2) Gamma Glutamyl Transpeptidase 416 U/L (8-61) H Aspartate Amino Transf (AST/SGOT) 44 U/L (5-40) H Alanine Aminotransferase (ALT/SGPT) 134 U/L (3-41) H Alkaline Phosphatase 206 U/L (40-129) H Total Creatine Kinase 392 U/L (38-174) H C-Reactive Protein, Quantitative 12.8 mg/dL (< 0.5) H Pro-B-Type Natriuretic Peptide 452 pg/mL (0-125) H Total Protein 7.0 g/dL (6.6-8.7) Albumin 3.3 g/dL (3.5-5.2) L Globulin 3.7 g/dL Albumin/Globulin Ratio 0.8 (1.0-2.7) L Triglycerides Level 119 mg/dL (< 150) Cholesterol Level 128 mg/dL (< 200) LDL Cholesterol 73 mg/dL (60-99) HDL Cholesterol 31 mg/dL (> 60) Cholesterol/HDL Ratio 4.1 (3.3-4.4) General: well developed, no acute distress Head: normocophalic, atraumatic Neck: other - rigid Neurologic Exam Mental Status: other - awake follows some simple commands Speech: other - mute Language: other Cranial Nerve II: no papilledema Cranial Nerves III, IV, : PERRLA Cranial Nerve V: normal facial sensations Cranial Nerve VII: normal facial expressions Cranial Nerve VIII: no nystagmus Cranial Nerve IX: other - _ gag Cranial Nerve XI: SCM symmetric Cranial Nerve XII: tongue midline Motor System: other - spasttic R hemiparesis Sensory: other Coordination: other Deep Tendon Reflexes: 0 ankle (L), 0 ankle (R), 0 bicep (L), 0 bicep (R), 0 brachioradialis (L), 0 brachioradialis (R), 0 knee (L), 0 knee (R), 0 tricep (L) , 0 tricep (R) Reflexes: extensor plantar (R) Impression/Recommendations Problems: (1) r/o partial complex seizure activity (2) 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
[2016-12-26 16:00] VITALS: BP 130/58
--- NOTE | 2016-12-26 16:13 | Pulmonology Progress Note ---
Assessment/Plan Assessment/Plan ASSESSMENT sepsis anoxic encephalopathy possible PNA dysphagia, PEG ARF -resolving dehydration resolving hx of CVA with RSW HTN Hx of cardiac arrest elevated transaminase electrolyte imbalance( hyper Na, hyper K) n new onset of involuntary irregular muscle jerking (in the setting of significant metabolic derangement): Rule out a myoclonus, rule out ongoing seizure activity. PLAN OF CARE [facility] floor IVF CT head negative for acute findings, c/w old Left infarct neuro follows EEG started empirically on Keppra and Ativan prn ammonia empiric abx , fup with cx, sputum cx if able UA negative CXR with possible L base infiltrate nephro follows creat down to 1.3 ARF likely 2 to dehydration avoid nephrotoxic closely monitor renal parameters and lytes, replace as needed O2 HHN prn Fup with CXR DVT, GI prophylaxis bowel regimen strict aspiration precautions, GT feeding, monitor tolerance pain management case discussed and evaluated by supervising physician Subjective Allergies: Coded Allergies: No Known Allergies (Unverified , 05/31/16) Subjective leukocytosis resolved, afebrile creat trending down LFT trendgin down no signs of respiratory distress Objective Last 24 Hour Vital Signs Date Time Temp Pulse Resp B/P Pulse Ox O2 Delivery O2 Flow Rate FiO2 12/26/16 12:00 97.8 79 20 112/71 97 Room Air 12/26/16 08:38 70 106/66 12/26/16 08:00 98.0 70 18 106/66 97 Room Air 12/26/16 06:42 71 18 Nasal Cannula 4.0 12/26/16 06:42 98 Room Air 12/26/16 04:00 97.9 69 18 110/61 95 Room Air 12/25/16 23:56 98.6 75 20 104/69 96 Simple Mask 12/25/16 20:00 97.7 82 22 126/67 92 Nasal Cannula 12/25/16 19:37 95 Nasal Cannula 4.0 36 12/25/16 19:35 74 18 Nasal Cannula 4.0 36 12/25/16 18:47 98.1 12/25/16 18:15 86 114/65 12/25/16 16:00 98.1 86 22 103/70 97 Nasal Cannula 2.0 Intake and Output 12/25/16 12/26/16 19:00 07:00 Intake Total 2596.6 ml 2370 ml Output Total 1200 ml 1500 ml Balance 1396.6 ml 870 ml Free Water 200 ml 200 ml IV Total 2086.6 ml 1650 ml Tube Feeding 310 ml 520 ml Output Urine Total 1200 ml 500 ml Stool Total 1000 ml General Appearance: no acute distress, other - bedridden, nonverbal Respiratory/Chest: lungs clear - moderate air entry , normal breath sounds, no respiratory distress Cardiovascular: normal rate, regular rhythm, no JVD Abdomen: normal bowel sounds, soft, non tender, non distended, other - G tube Extremities: other - Right side paresis, bilateral foot drop Neurologic/Psychiatric: abnormal gait, other - obtunded, nonverbal, bedridden, R paresis Musculoskeletal: atrophy - BLE Microbiology Date/Time Source Procedure Growth Status 12/25/16 00:05 Blood Blood Culture - Preliminary NO GROWTH AFTER 24 HOURS Resulted 12/25/16 00:00 Blood Blood Culture - Preliminary NO GROWTH AFTER 24 HOURS Resulted 12/25/16 02:13 Nasal Nares MRSA Culture - Final NO METHICILLIN RESISTANT STAPH AUREUS... Complete Laboratory Tests 12/26/16 05:10: White Blood Count 8.8#, Red Blood Count 4.43L, Hemoglobin 13.3L, Hematocrit 41.7L, Mean Corpuscular Volume 94, Mean Corpuscular Hemoglobin 30.0, Mean Corpuscular Hemoglobin Concent 31.8L, Red Cell Distribution Width 12.3, Platelet Count 383, Mean Platelet Volume 6.9, Neutrophils (%) (Auto) 65.4, Lymphocytes (%) (Auto) 23.5, Monocytes (%) (Auto) 6.2, Eosinophils (%) (Auto) 3.6H, Basophils (%) (Auto) 1.3, Sodium Level 152H, Potassium Level 3.4, Chloride Level 109H, Carbon Dioxide Level 25, Anion Gap 18H, Blood Urea Nitrogen 49#H, Creatinine 1.3#H, Estimat Glomerular Filtration Rate > 60, Glucose Level 131H, Hemoglobin A1c 5.8, Uric Acid 8.2H, Calcium Level 9.2, Phosphorus Level 3.7, Magnesium Level 2.8H, Total Bilirubin 0.4, Gamma Glutamyl Transpeptidase 416H, Aspartate Amino Transf (AST/SGOT) 44H, Alanine Aminotransferase (ALT/SGPT) 134H, Alkaline Phosphatase 206H, Total Creatine Kinase 392H, C-Reactive Protein, Quantitative 12.8H, Pro-B-Type Natriuretic Peptide 452H, Total Protein 7.0, Albumin 3.3L, Globulin 3.7, Albumin/Globulin Ratio 0.8L, Triglycerides Level 119, Cholesterol Level 128, LDL Cholesterol 73, HDL Cholesterol 31, Cholesterol/HDL Ratio 4.1 Current Medications Medications (Trade) Dose Ordered Sig/Danita Route PRN Reason Start Time Stop Time Status Last Admin Dose Admin Acetaminophen (Tylenol) 650 mg Q4H PRN ORAL fever>100.5 12/25/16 15:15 01/24/17 15:14 Albuterol/ Ipratropium (DuoNeb 0.5-3(2.5)mg/3ml) 3 ml Q4H PRN HHN Shortness of Breath 12/25/16 15:00 12/30/16 14:59 Baclofen (Lioresal) 10 mg THREE TIMES A DAY GT 12/25/16 18:00 01/24/17 17:59 12/26/16 12:48 Carvedilol (Coreg) 6.25 mg TWICE A DAY GT 12/25/16 18:00 01/24/17 17:59 12/25/16 18:15 Cefepime HCl 2 gm/ Dextrose 110 ml @ 220 mls/hr Q24H IV 12/26/16 09:30 01/02/17 09:29 12/26/16 09:30 Dextrose (D5W 1000ml) 1,000 ml @ 75 mls/hr [id number] IV 12/26/16 12:15 01/25/17 12:14 12/26/16 12:45 Heparin Sodium (Porcine) (Heparin 5000 units/ml) 5,000 units EVERY 12 HOURS SUBQ 12/25/16 21:00 01/24/17 20:59 12/26/16 08:56 Levetiracetam (Keppra) 500 mg Q12HR GT 12/25/16 21:00 01/24/17 20:59 12/26/16 08:38 Lorazepam (Ativan 2mg/ml 1ml) 1 mg Q2H PRN IV For Seizures 12/25/16 15:00 01/01/17 14:59 Morphine Sulfate (Morphine Sulfate) 2 mg Q4H PRN IVP Moderate Pain (Pain Scale 4-6) 12/25/16 15:00 01/01/17 14:59 12/25/16 18:17 Nitroglycerin (Ntg) 0.4 mg Q5M PRN SL Prn Chest Pain 12/25/16 15:00 01/24/17 14:59 Ondansetron HCl (Zofran) 4 mg Q6H PRN IVP Nausea & Vomiting 12/25/16 15:00 01/24/17 14:59 Polyethylene Glycol (Miralax) 17 gm DAILYPRN PRN ORAL Constipation 12/25/16 15:00 01/24/17 14:59 Temazepam 15 mg 15 mg HSPRN PRN ORAL Insomnia 12/25/16 21:00 01/01/17 20:59 Vancomycin HCl/ Dextrose (Vancomycin/D5W) 275 ml @ 183.3 mls/ hr Q24H IVPB 12/26/16 10:00 12/31/16 09:59 12/26/16 10:30 Neha Barillas NP (Vanchtein) Dec 26, 2016 16:13
[2016-12-26 20:00] VITALS: BP 122/60
[2016-12-26] MEDS: Cefepime HCl 2 GM in D5W 110 ML IV SCH (21:55)
[2016-12-27] VITALS: BP 104/62
[2016-12-27 04:00] VITALS: BP 113/58
[2016-12-27 08:00] VITALS: BP 101/64
[2016-12-27] MEDS: Carvedilol 6.25mg Tab GT SCH ×2 (08:11→19:05)
[2016-12-27] MEDS: levETIRAcetam 500mg/5ml Liquid GT SCH ×2 (08:11→21:31)
[2016-12-27] MEDS: Cefepime HCl 2 GM in D5W 110 ML IV SCH ×2 (08:12→21:31)
[2016-12-27] MEDS: Heparin 5000 units/ml inj SUBQ SCH ×2 (08:15→21:38)
[2016-12-27] MEDS: Vancomycin 1 GM in D5W 275 ML IVPB SCH (10:00)
--- NOTE | 2016-12-27 10:07 | General Progress Note ---
Assessment/Plan Status: stable Assessment/Plan Status: Acute renal failure- resolving Dehydration resolving Sepsis CVA / Hypoxic Encephalopathy PEG High LFTs ? Keppra related ? Plan: today's labs pending IV to D5 K supplement as needed Monitor renal parameters Avoid Nephrotoxics Subjective ROS Limited/Unobtainable: No Constitutional: Reports: malaise Allergies: Coded Allergies: No Known Allergies (Unverified , 05/31/16) Objective Last 24 Hour Vital Signs Date Time Temp Pulse Resp B/P Pulse Ox O2 Delivery O2 Flow Rate FiO2 12/27/16 04:00 98.1 61 20 113/58 96 Room Air 12/27/16 00:00 97.7 60 20 104/62 97 Room Air 12/26/16 20:09 67 118/70 12/26/16 20:00 97.7 87 20 122/60 98 Room Air 12/26/16 19:30 74 16 Room Air 21 12/26/16 19:30 95 Room Air 21 12/26/16 16:00 97.1 91 18 130/58 97 Room Air 12/26/16 12:00 97.8 79 20 112/71 97 Room Air Intake and Output 12/26/16 12/27/16 19:00 07:00 Intake Total 775 ml 1445 ml Output Total 1250 ml Balance 775 ml 195 ml Free Water 100 ml 200 ml IV Total 375 ml 885 ml Tube Feeding 300 ml 360 ml Output Urine Total 1250 ml # Bowel Movements 1 Laboratory Tests 12/27/16 09:40: Sodium Level [Pending], Potassium Level [Pending], Chloride Level [Pending], Carbon Dioxide Level [Pending], Blood Urea Nitrogen [Pending], Creatinine [ Pending], Estimat Glomerular Filtration Rate [Pending], Glucose Level [Pending] , Uric Acid [Pending], Calcium Level [Pending], Phosphorus Level [Pending], Magnesium Level [Pending], Total Bilirubin [Pending], Aspartate Amino Transf ( AST/SGOT) [Pending], Alanine Aminotransferase (ALT/SGPT) [Pending], Alkaline Phosphatase [Pending], C-Reactive Protein, Quantitative [Pending], Pro-B-Type Natriuretic Peptide [Pending], Total Protein [Pending], Albumin [Pending], Globulin [Pending], Vancomycin Level Trough [Pending] Height (Feet): 5 Height (Inches): 8.00 Weight (Pounds): 150 General Appearance: no apparent distress Objective no other changes MARCUS FERNANDEZ Dec 27, 2016 10:06
[2016-12-27 10:27] LABS: ALANINE AMINOTRANSFERASE 100 U/L (3-41); ALBUMIN/GLOBULIN RATIO 0.8 (1.0-2.7); ANION GAP 18 (5-15); ASPARTATE AMINO TRANSFERASE 40 U/L (5-40); CARBON DIOXIDE 20 mEQ/L (20-30); CHLORIDE 110 mEQ/L (98-107); CRP QUANT 6.1 mg/dL (< 0.5); GLOMERULAR FILTRATION RATE > 60 mL/min (>60); HEMOLYSIS 24; MAGNESIUM 1.9 mg/dL (1.7-2.5); POTASSIUM 3.7 mEQ/L (3.4-4.9); SODIUM 148 mEQ/L (135-145); TOTAL PROTEIN 6.8 g/dL (6.6-8.7); URIC ACID 6.6 mg/dL (3.0-7.5)
[2016-12-27 12:00] VITALS: BP 111/74
[2016-12-27] MEDS ORDERED: Vancomycin 1250mg/D5W 275ml IVPB ONE ×2 (12:00)
--- NOTE | 2016-12-27 12:07 | Infectious Diseases Prog Note ---
Assessment/Plan Assessment/Plan ID consult dictated # [id number] Subjective Allergies: Coded Allergies: No Known Allergies (Unverified , 05/31/16) Objective Vital Signs Last 24 Hour Vital Signs Date Time Temp Pulse Resp B/P Pulse Ox O2 Delivery O2 Flow Rate FiO2 12/27/16 08:42 65 16 Room Air 21 12/27/16 08:32 97 Room Air 21 12/27/16 08:00 97.7 59 19 101/64 95 Room Air 12/27/16 04:00 98.1 61 20 113/58 96 Room Air 12/27/16 00:00 97.7 60 20 104/62 97 Room Air 12/26/16 20:09 67 118/70 12/26/16 20:00 97.7 87 20 122/60 98 Room Air 12/26/16 19:30 74 16 Room Air 21 12/26/16 19:30 95 Room Air 21 12/26/16 16:00 97.1 91 18 130/58 97 Room Air Height (Feet): 5 Height (Inches): 8.00 Weight (Pounds): 150 Microbiology Date/Time Source Procedure Growth Status 12/25/16 00:05 Blood Blood Culture - Preliminary NO GROWTH AFTER 48 HOURS Resulted 12/25/16 00:00 Blood Blood Culture - Preliminary NO GROWTH AFTER 48 HOURS Resulted 12/25/16 02:13 Nasal Nares MRSA Culture - Final NO METHICILLIN RESISTANT STAPH AUREUS... Complete 12/25/16 02:13 Rectum VRE Culture - Final NO VANCOMYCIN RESISTANT ENTEROCOCCUS ... Complete Laboratory Tests Test 12/27/16 09:40 Sodium Level 148 mEQ/L (135-145) H Potassium Level 3.7 mEQ/L (3.4-4.9) Chloride Level 110 mEQ/L (98-107) H Carbon Dioxide Level 20 mEQ/L (20-30) Anion Gap 18 (5-15) H Blood Urea Nitrogen 20 mg/dL (7-23) # Creatinine 1.0 mg/dL (0.7-1.2) Estimat Glomerular Filtration Rate > 60 mL/min (>60) Glucose Level 112 mg/dL (74-106) H Uric Acid 6.6 mg/dL (3.0-7.5) Calcium Level 9.0 mg/dL (8.6-10.2) Phosphorus Level 3.0 mg/dL (2.5-4.8) Magnesium Level 1.9 mg/dL (1.7-2.5) Total Bilirubin 0.4 mg/dL (0.0-1.2) Aspartate Amino Transf (AST/SGOT) 40 U/L (5-40) Alanine Aminotransferase (ALT/SGPT) 100 U/L (3-41) H Alkaline Phosphatase 163 U/L (40-129) H C-Reactive Protein, Quantitative 6.1 mg/dL (< 0.5) H Pro-B-Type Natriuretic Peptide 1512 pg/mL (0-125) H Total Protein 6.8 g/dL (6.6-8.7) Albumin 3.2 g/dL (3.5-5.2) L Globulin 3.6 g/dL Albumin/Globulin Ratio 0.8 (1.0-2.7) L Vancomycin Level Trough 3.3 ug/mL (5.0-12.0) L Current Medications Medications (Trade) Dose Ordered Sig/Danita Route PRN Reason Start Time Stop Time Status Last Admin Dose Admin Acetaminophen (Tylenol) 650 mg Q4H PRN ORAL fever>100.5 12/25/16 15:15 01/24/17 15:14 Albuterol/ Ipratropium (DuoNeb 0.5-3(2.5)mg/3ml) 3 ml Q4H PRN HHN Shortness of Breath 12/25/16 15:00 12/30/16 14:59 Baclofen (Lioresal) 10 mg THREE TIMES A DAY GT 12/25/16 18:00 01/24/17 17:59 12/27/16 08:11 Carvedilol (Coreg) 6.25 mg TWICE A DAY GT 12/25/16 18:00 01/24/17 17:59 12/26/16 20:09 Cefepime HCl/ Dextrose (Maxipime/D5W) 110 ml @ 220 mls/hr Q12H IV 12/26/16 21:00 01/02/17 20:59 12/27/16 08:12 Dextrose 1,000 ml @ 75 mls/hr [id number] IV 12/26/16 12:15 01/25/17 12:14 12/27/16 05:02 Heparin Sodium (Porcine) (Heparin 5000 units/ml) 5,000 units EVERY 12 HOURS SUBQ 12/25/16 21:00 01/24/17 20:59 12/27/16 08:15 Levetiracetam (Keppra) 500 mg Q12HR GT 12/25/16 21:00 01/24/17 20:59 12/27/16 08:11 Lorazepam (Ativan 2mg/ml 1ml) 1 mg Q2H PRN IV For Seizures 12/25/16 15:00 01/01/17 14:59 Morphine Sulfate (Morphine Sulfate) 2 mg Q4H PRN IVP Moderate Pain (Pain Scale 4-6) 12/25/16 15:00 01/01/17 14:59 12/25/16 18:17 Nitroglycerin (Ntg) 0.4 mg Q5M PRN SL Prn Chest Pain 12/25/16 15:00 01/24/17 14:59 Ondansetron HCl (Zofran) 4 mg Q6H PRN IVP Nausea & Vomiting 12/25/16 15:00 01/24/17 14:59 Polyethylene Glycol (Miralax) 17 gm DAILYPRN PRN ORAL Constipation 12/25/16 15:00 01/24/17 14:59 Temazepam 15 mg 15 mg HSPRN PRN ORAL Insomnia 12/25/16 21:00 01/01/17 20:59 Vancomycin HCl 1.25 gm/Dextrose 275 ml @ 183.333 mls/hr ONCE ONCE IVPB 12/27/16 12:00 12/27/16 13:29 Vancomycin HCl 1 ea 1 ea DAILY PRN MISC PER RX PROTOCOL 12/27/16 10:45 01/26/17 10:44 Vancomycin HCl/ Dextrose (Vancomycin/D5W) 275 ml @ 183.708 mls/hr Q12HR@0000,1200 IVPB 12/28/16 00:00 01/02/17 00:00 TREE ANAYA Dec 27, 2016 12:07
--- NOTE | 2016-12-27 13:58 | Pulmonology Progress Note ---
Assessment/Plan Assessment/Plan ASSESSMENT sepsis anoxic encephalopathy possible PNA dysphagia, PEG ARF -resolving dehydration resolving hx of CVA with RSW HTN Hx of cardiac arrest elevated transaminase electrolyte imbalance( hyper Na, hyper K) n new onset of involuntary irregular muscle jerking (in the setting of significant metabolic derangement): Rule out a myoclonus, rule out ongoing seizure activity. PLAN OF CARE [facility] floor IVF, decrease rate CT head negative for acute findings, c/w old Left infarct neuro follows EEG started empirically on Keppra and Ativan prn ammonia empiric abx , fup with cx, sputum cx if able UA negative CXR with possible L base infiltrate CXR in am nephro follows creat down to normal , ARF likely 2 to dehydration avoid nephrotoxic closely monitor renal parameters and lytes, replace as needed O2 HHN prn DVT, GI prophylaxis bowel regimen strict aspiration precautions, GT feeding, monitor tolerance pain management case discussed and evaluated by supervising physician Subjective Allergies: Coded Allergies: No Known Allergies (Unverified , 05/31/16) Subjective leukocytosis resolved, afebrile creat down to normal LFT trending down no signs of respiratory distress Objective Last 24 Hour Vital Signs Date Time Temp Pulse Resp B/P Pulse Ox O2 Delivery O2 Flow Rate FiO2 12/27/16 12:00 97.7 65 20 111/74 95 Room Air 12/27/16 08:42 65 16 Room Air 12/27/16 08:32 97 Room Air 12/27/16 08:00 97.7 59 19 101/64 95 Room Air 12/27/16 04:00 98.1 61 20 113/58 96 Room Air 12/27/16 00:00 97.7 60 20 104/62 97 Room Air 12/26/16 20:09 67 118/70 12/26/16 20:00 97.7 87 20 122/60 98 Room Air 12/26/16 19:30 74 16 Room Air 21 12/26/16 19:30 95 Room Air 21 12/26/16 16:00 97.1 91 18 130/58 97 Room Air Intake and Output 12/26/16 12/27/16 19:00 07:00 Intake Total 775 ml 1445 ml Output Total 1250 ml Balance 775 ml 195 ml Free Water 100 ml 200 ml IV Total 375 ml 885 ml Tube Feeding 300 ml 360 ml Output Urine Total 1250 ml # Bowel Movements 1 Microbiology Date/Time Source Procedure Growth Status 12/25/16 00:05 Blood Blood Culture - Preliminary NO GROWTH AFTER 48 HOURS Resulted 12/25/16 00:00 Blood Blood Culture - Preliminary NO GROWTH AFTER 48 HOURS Resulted 12/25/16 02:13 Nasal Nares MRSA Culture - Final NO METHICILLIN RESISTANT STAPH AUREUS... Complete 12/25/16 02:13 Rectum VRE Culture - Final NO VANCOMYCIN RESISTANT ENTEROCOCCUS ... Complete Laboratory Tests 12/27/16 09:40: Sodium Level 148H, Potassium Level 3.7, Chloride Level 110H, Carbon Dioxide Level 20, Anion Gap 18H, Blood Urea Nitrogen 20#, Creatinine 1.0, Estimat Glomerular Filtration Rate > 60, Glucose Level 112H, Uric Acid 6.6, Calcium Level 9.0, Phosphorus Level 3.0, Magnesium Level 1.9, Total Bilirubin 0.4, Aspartate Amino Transf (AST/SGOT) 40, Alanine Aminotransferase (ALT/SGPT) 100H, Alkaline Phosphatase 163H, C-Reactive Protein, Quantitative 6.1H, Pro-B-Type Natriuretic Peptide 1512H, Total Protein 6.8, Albumin 3.2L, Globulin 3.6, Albumin/Globulin Ratio 0.8L, Vancomycin Level Trough 3.3L Current Medications Medications (Trade) Dose Ordered Sig/Danita Route PRN Reason Start Time Stop Time Status Last Admin Dose Admin Acetaminophen (Tylenol) 650 mg Q4H PRN ORAL fever>100.5 12/25/16 15:15 01/24/17 15:14 Albuterol/ Ipratropium (DuoNeb 0.5-3(2.5)mg/3ml) 3 ml Q4H PRN HHN Shortness of Breath 12/25/16 15:00 12/30/16 14:59 Baclofen (Lioresal) 10 mg THREE TIMES A DAY GT 12/25/16 18:00 01/24/17 17:59 12/27/16 12:36 Carvedilol (Coreg) 6.25 mg TWICE A DAY GT 12/25/16 18:00 01/24/17 17:59 12/26/16 20:09 Cefepime HCl/ Dextrose (Maxipime/D5W) 110 ml @ 220 mls/hr Q12H IV 12/26/16 21:00 01/02/17 20:59 12/27/16 08:12 Dextrose 1,000 ml @ 75 mls/hr [id number] IV 12/26/16 12:15 01/25/17 12:14 12/27/16 05:02 Heparin Sodium (Porcine) (Heparin 5000 units/ml) 5,000 units EVERY 12 HOURS SUBQ 12/25/16 21:00 01/24/17 20:59 12/27/16 08:15 Levetiracetam (Keppra) 500 mg Q12HR GT 12/25/16 21:00 01/24/17 20:59 12/27/16 08:11 Lorazepam (Ativan 2mg/ml 1ml) 1 mg Q2H PRN IV For Seizures 12/25/16 15:00 01/01/17 14:59 Morphine Sulfate (Morphine Sulfate) 2 mg Q4H PRN IVP Moderate Pain (Pain Scale 4-6) 12/25/16 15:00 01/01/17 14:59 12/25/16 18:17 Nitroglycerin (Ntg) 0.4 mg Q5M PRN SL Prn Chest Pain 12/25/16 15:00 01/24/17 14:59 Ondansetron HCl (Zofran) 4 mg Q6H PRN IVP Nausea & Vomiting 12/25/16 15:00 01/24/17 14:59 Polyethylene Glycol (Miralax) 17 gm DAILYPRN PRN ORAL Constipation 12/25/16 15:00 01/24/17 14:59 Temazepam 15 mg 15 mg HSPRN PRN ORAL Insomnia 12/25/16 21:00 01/01/17 20:59 Neha Barillas NP ([facility]anchte[facility]) Dec 27, 2016 13:58
[2016-12-27 16:00] VITALS: BP 113/58
[2016-12-27] MEDS ORDERED: D5 1/2NS 1000ml IV ONE (16:57)
[2016-12-27 20:00] VITALS: BP 117/68
[2016-12-28] VITALS: BP 109/73
[2016-12-28] MEDS ORDERED: Vancomycin 1gm/D5W 275ml IVPB SCH ×2
[2016-12-28 04:00] VITALS: BP 113/65
[2016-12-28 06:21] LABS: BASOPHILS % (AUTO) 1.3 % (0.0-2.0); EOSINOPHILS % (AUTO) 2.6 % (0.0-3.0); LYMPHOCYTES % (AUTO) 30.9 % (20.0-45.0); MEAN CORPUSCULAR HEMOGLOBIN 30.1 PG (27.0-31.0); MEAN CORPUSCULAR HGB CONC 32.1 G/DL (32.0-36.0); MEAN CORPUSCULAR VOLUME 94 FL (80-99); MEAN PLATELET VOLUME 6.3 FL (6.5-10.1); MONOCYTES % (AUTO) 6.5 % (1.0-10.0); NEUTROPHILS % (AUTO) 58.8 % (45.0-75.0); PLATELET COUNT 438 K/UL (150-450); RED BLOOD COUNT 4.58 M/UL (4.70-6.10); RED CELL DISTRIBUTION WIDTH 11.8 % (11.6-14.8); WHITE BLOOD COUNT 9.9 K/UL (4.8-10.8)
[2016-12-28 06:44] LABS: ANION GAP 18 (5-15); CALCIUM 9.8 mg/dL (8.6-10.2); CARBON DIOXIDE 21 mEQ/L (20-30); CHLORIDE 109 mEQ/L (98-107); GLOMERULAR FILTRATION RATE > 60 mL/min (>60); HEMOLYSIS 2; POTASSIUM 3.9 mEQ/L (3.4-4.9); SODIUM 148 mEQ/L (135-145)
[2016-12-28 08:23] VITALS: BP 111/76
[2016-12-28] MEDS: Cefepime HCl 2 GM in D5W 110 ML IV SCH ×2 (08:25→20:52)
[2016-12-28] MEDS: levETIRAcetam 500mg/5ml Liquid GT SCH ×2 (08:26→20:51)
[2016-12-28] MEDS: Carvedilol 6.25mg Tab GT SCH ×2 (08:26→17:28)
[2016-12-28] MEDS: Heparin 5000 units/ml inj SUBQ SCH ×2 (08:27→20:52)
--- NOTE | 2016-12-28 10:18 | Infectious Diseases Prog Note ---
Assessment/Plan Assessment/Plan A: Fever Improving Leukocytosis improving Sepsis possible PNA Cxray : Left basilar infiltrate versus atelectasis. Transaminitis Ro cholecystitis and Ch Hep B/C Anoxic encephalopathy Dysphagia, PEG ARF, SP Hx of CVA HTN Hx of cardiac arrest P: Cont pt on IV Cefepime d # 3 / , add Flagyl for now d# 1 / Monitor CBC Monitor BMP, LFT Monitor Cultures ( Bl, Sp ) Monitor Cxray Us of Abd acute hepatitis panel Subjective Constitutional: Denies: anorexia, chills, drenching sweats, fatigue, fever, no symptoms, other Allergies: Coded Allergies: No Known Allergies (Unverified , 05/31/16) Objective Vital Signs Last 24 Hour Vital Signs Date Time Temp Pulse Resp B/P Pulse Ox O2 Delivery O2 Flow Rate FiO2 12/28/16 08:26 75 111/76 12/28/16 08:23 96.8 75 19 111/76 97 Room Air 12/28/16 04:00 98.2 69 18 113/65 96 Room Air 12/28/16 00:00 98.6 73 18 109/73 97 Room Air 12/27/16 20:27 68 16 Room Air 21 12/27/16 20:27 96 Room Air 21 12/27/16 20:00 97.9 65 20 117/68 97 Room Air 12/27/16 19:05 65 111/74 12/27/16 16:00 98.1 61 20 113/58 96 Room Air 12/27/16 12:00 97.7 65 20 111/74 95 Room Air Height (Feet): 5 Height (Inches): 8.00 Weight (Pounds): 150 HEENT: atraumatic Respiratory/Chest: normal breath sounds Cardiovascular: normal rate Abdomen: no organomegaly Laboratory Tests Test 12/28/16 05:05 White Blood Count 9.9 K/UL (4.8-10.8) Red Blood Count 4.58 M/UL (4.70-6.10) L Hemoglobin 13.8 G/DL (14.2-18.0) L Hematocrit 43.0 % (42.0-52.0) Mean Corpuscular Volume 94 FL (80-99) Mean Corpuscular Hemoglobin 30.1 PG (27.0-31.0) Mean Corpuscular Hemoglobin Concent 32.1 G/DL (32.0-36.0) Red Cell Distribution Width 11.8 % (11.6-14.8) Platelet Count 438 K/UL (150-450) Mean Platelet Volume 6.3 FL (6.5-10.1) L Neutrophils (%) (Auto) 58.8 % (45.0-75.0) Lymphocytes (%) (Auto) 30.9 % (20.0-45.0) Monocytes (%) (Auto) 6.5 % (1.0-10.0) Eosinophils (%) (Auto) 2.6 % (0.0-3.0) Basophils (%) (Auto) 1.3 % (0.0-2.0) Sodium Level 148 mEQ/L (135-145) H Potassium Level 3.9 mEQ/L (3.4-4.9) Chloride Level 109 mEQ/L (98-107) H Carbon Dioxide Level 21 mEQ/L (20-30) Anion Gap 18 (5-15) H Blood Urea Nitrogen 18 mg/dL (7-23) Creatinine 1.0 mg/dL (0.7-1.2) Estimat Glomerular Filtration Rate > 60 mL/min (>60) Glucose Level 104 mg/dL (74-106) Calcium Level 9.8 mg/dL (8.6-10.2) Current Medications Medications (Trade) Dose Ordered Sig/Danita Route PRN Reason Start Time Stop Time Status Last Admin Dose Admin Acetaminophen (Tylenol) 650 mg Q4H PRN ORAL fever>100.5 12/25/16 15:15 01/24/17 15:14 Albuterol/ Ipratropium (DuoNeb 0.5-3(2.5)mg/3ml) 3 ml Q4H PRN HHN Shortness of Breath 12/25/16 15:00 12/30/16 14:59 Baclofen (Lioresal) 10 mg THREE TIMES A DAY GT 12/25/16 18:00 01/24/17 17:59 12/28/16 08:26 Carvedilol (Coreg) 6.25 mg TWICE A DAY GT 12/25/16 18:00 01/24/17 17:59 12/28/16 08:26 Cefepime HCl 2 gm/ Dextrose 110 ml @ 220 mls/hr Q12H IV 4/1/17 21:00 01/02/17 20:59 12/28/16 08:25 Dextrose (D5W 1000ml) 1,000 ml @ 40 mls/hr Q24H IV 12/27/16 14:30 01/26/17 14:29 12/28/16 05:02 Heparin Sodium (Porcine) (Heparin 5000 units/ml) 5,000 units EVERY 12 HOURS SUBQ 12/25/16 21:00 01/24/17 20:59 12/28/16 08:27 Levetiracetam (Keppra) 500 mg Q12HR GT 12/25/16 21:00 01/24/17 20:59 12/28/16 08:26 Lorazepam (Ativan 2mg/ml 1ml) 1 mg Q2H PRN IV For Seizures 12/25/16 15:00 01/01/17 14:59 Morphine Sulfate (Morphine Sulfate) 2 mg Q4H PRN IVP Moderate Pain (Pain Scale 4-6) 12/25/16 15:00 01/01/17 14:59 12/25/16 18:17 Nitroglycerin (Ntg) 0.4 mg Q5M PRN SL Prn Chest Pain 12/25/16 15:00 01/24/17 14:59 Ondansetron HCl (Zofran) 4 mg Q6H PRN IVP Nausea & Vomiting 12/25/16 15:00 01/24/17 14:59 Polyethylene Glycol (Miralax) 17 gm DAILYPRN PRN ORAL Constipation 12/25/16 15:00 01/24/17 14:59 Temazepam 15 mg 15 mg HSPRN PRN ORAL Insomnia 12/25/16 21:00 01/01/17 20:59 MELISSA ELLIOTT M.D. Dec 28, 2016 10:18
[2016-12-28 11:52] VITALS: BP 110/75
[2016-12-28] MEDS: metroNIDAZOLE 500mg 100 ML IVPB SCH ×2 (13:45→21:49)
--- NOTE | 2016-12-28 14:45 | General Progress Note ---
Assessment/Plan Status: stable Assessment/Plan Status: Acute renal failure- resolving Dehydration resolving Sepsis CVA / Hypoxic Encephalopathy PEG High LFTs ? Keppra related ? Plan: K supplement as needed Monitor renal parameters Avoid Nephrotoxics Dc planing Subjective ROS Limited/Unobtainable: No Constitutional: Reports: malaise Allergies: Coded Allergies: No Known Allergies (Unverified , 05/31/16) Objective Last 24 Hour Vital Signs Date Time Temp Pulse Resp B/P Pulse Ox O2 Delivery O2 Flow Rate FiO2 12/28/16 11:52 97.0 74 19 110/75 95 Room Air 12/28/16 08:26 75 111/76 12/28/16 08:23 96.8 75 19 111/76 97 Room Air 12/28/16 04:00 98.2 69 18 113/65 96 Room Air 12/28/16 00:00 98.6 73 18 109/73 97 Room Air 12/27/16 20:27 68 16 Room Air 21 12/27/16 20:27 96 Room Air 21 12/27/16 20:00 97.9 65 20 117/68 97 Room Air 12/27/16 19:05 65 111/74 12/27/16 16:00 98.1 61 20 113/58 96 Room Air Intake and Output 12/27/16 12/28/16 19:00 07:00 Intake Total 385 ml 1070 ml Output Total 750 ml Balance 385 ml 320 ml Free Water 100 ml 200 ml IV Total 75 ml 360 ml Tube Feeding 210 ml 510 ml Output Urine Total 750 ml Laboratory Tests 12/28/16 05:05: White Blood Count 9.9, Red Blood Count 4.58L, Hemoglobin 13.8L, Hematocrit 43.0 , Mean Corpuscular Volume 94, Mean Corpuscular Hemoglobin 30.1, Mean Corpuscular Hemoglobin Concent 32.1, Red Cell Distribution Width 11.8, Platelet Count 438, Mean Platelet Volume 6.3L, Neutrophils (%) (Auto) 58.8, Lymphocytes ( %) (Auto) 30.9, Monocytes (%) (Auto) 6.5, Eosinophils (%) (Auto) 2.6, Basophils (%) (Auto) 1.3, Sodium Level 148H, Potassium Level 3.9, Chloride Level 109H, Carbon Dioxide Level 21, Anion Gap 18H, Blood Urea Nitrogen 18, Creatinine 1.0, Estimat Glomerular Filtration Rate > 60, Glucose Level 104, Calcium Level 9.8, Hepatitis A IgM Antibody [Pending], Hepatitis B Surface Antigen [Pending], Hepatitis B Core IgM Antibody [Pending], Hepatitis C Antibody [Pending] Height (Feet): 5 Height (Inches): 8.00 Weight (Pounds): 150 General Appearance: no apparent distress Cardiovascular: regular rhythm Respiratory/Chest: decreased breath sounds Abdomen: soft Objective no other changes MARCUS FERNANDEZ Dec 28, 2016 14:45
[2016-12-28 16:05] VITALS: BP 110/67
[2016-12-28 20:00] VITALS: BP 115/72
--- NOTE | 2016-12-28 20:14 | Pulmonology Progress Note ---
Assessment/Plan Problems: (1) Severe sepsis (2) ATN (acute tubular necrosis) (3) Dehydration (4) PEG (percutaneous endoscopic gastrostomy) adjustment/replacement/removal (5) History of CVA (cerebrovascular accident) Assessment/Plan improving flagyl was added today check cultures might be able to go back to long term in 1/2 days. Subjective ROS Limited/Unobtainable: Yes Interval Events: comfortable Allergies: Coded Allergies: No Known Allergies (Unverified , 05/31/16) Objective Last 24 Hour Vital Signs Date Time Temp Pulse Resp B/P Pulse Ox O2 Delivery O2 Flow Rate FiO2 12/28/16 17:28 70 110/67 12/28/16 16:05 97.2 70 19 110/67 96 Room Air 12/28/16 11:52 97.0 74 19 110/75 95 Room Air 12/28/16 08:26 75 111/76 12/28/16 08:23 96.8 75 19 111/76 97 Room Air 12/28/16 04:00 98.2 69 18 113/65 96 Room Air 12/28/16 00:00 98.6 73 18 109/73 97 Room Air 12/27/16 20:27 68 16 Room Air 21 12/27/16 20:27 96 Room Air 21 Intake and Output 12/27/16 12/28/16 19:00 07:00 Intake Total 385 ml 1070 ml Output Total 750 ml Balance 385 ml 320 ml Free Water 100 ml 200 ml IV Total 75 ml 360 ml Tube Feeding 210 ml 510 ml Output Urine Total 750 ml General Appearance: WD/WN HEENT: normocephalic, atraumatic Respiratory/Chest: chest wall non-tender, lungs clear Cardiovascular: normal peripheral pulses, normal rate Abdomen: normal bowel sounds, no organomegaly Extremities: no cyanosis Laboratory Tests 12/28/16 05:05: White Blood Count 9.9, Red Blood Count 4.58L, Hemoglobin 13.8L, Hematocrit 43.0 , Mean Corpuscular Volume 94, Mean Corpuscular Hemoglobin 30.1, Mean Corpuscular Hemoglobin Concent 32.1, Red Cell Distribution Width 11.8, Platelet Count 438, Mean Platelet Volume 6.3L, Neutrophils (%) (Auto) 58.8, Lymphocytes ( %) (Auto) 30.9, Monocytes (%) (Auto) 6.5, Eosinophils (%) (Auto) 2.6, Basophils (%) (Auto) 1.3, Sodium Level 148H, Potassium Level 3.9, Chloride Level 109H, Carbon Dioxide Level 21, Anion Gap 18H, Blood Urea Nitrogen 18, Creatinine 1.0, Estimat Glomerular Filtration Rate > 60, Glucose Level 104, Calcium Level 9.8, Hepatitis A IgM Antibody [Pending], Hepatitis B Surface Antigen [Pending], Hepatitis B Core IgM Antibody [Pending], Hepatitis C Antibody [Pending] Current Medications Medications (Trade) Dose Ordered Sig/Danita Route PRN Reason Start Time Stop Time Status Last Admin Dose Admin Acetaminophen (Tylenol) 650 mg Q4H PRN ORAL fever>100.5 12/25/16 15:15 01/24/17 15:14 Albuterol/ Ipratropium (DuoNeb 0.5-3(2.5)mg/3ml) 3 ml Q4H PRN HHN Shortness of Breath 12/25/16 15:00 12/30/16 14:59 Baclofen (Lioresal) 10 mg THREE TIMES A DAY GT 12/25/16 18:00 01/24/17 17:59 12/28/16 17:28 Carvedilol (Coreg) 6.25 mg TWICE A DAY GT 12/25/16 18:00 01/24/17 17:59 12/28/16 17:28 Cefepime HCl 2 gm/ Dextrose 110 ml @ 220 mls/hr Q12H IV 12/26/16 21:00 01/02/17 20:59 12/28/16 08:25 Dextrose 1,000 ml @ 40 mls/hr Q24H IV 12/27/16 14:30 01/26/17 14:29 12/28/16 05:02 Heparin Sodium (Porcine) (Heparin 5000 units/ml) 5,000 units EVERY 12 HOURS SUBQ 12/25/16 21:00 01/24/17 20:59 12/28/16 08:27 Levetiracetam (Keppra) 500 mg Q12HR GT 12/25/16 21:00 01/24/17 20:59 12/28/16 08:26 Lorazepam (Ativan 2mg/ml 1ml) 1 mg Q2H PRN IV For Seizures 12/25/16 15:00 4//17 14:59 Metronidazole (Flagyl) 100 ml @ 100 mls/hr Q8HR IVPB 12/28/16 14:00 01/04/17 13:59 12/28/16 13:45 Morphine Sulfate (Morphine Sulfate) 2 mg Q4H PRN IVP Moderate Pain (Pain Scale 4-6) 12/25/16 15:00 01/01/17 14:59 12/25/16 18:17 Nitroglycerin (Ntg) 0.4 mg Q5M PRN SL Prn Chest Pain 12/25/16 15:00 01/24/17 14:59 Ondansetron HCl (Zofran) 4 mg Q6H PRN IVP Nausea & Vomiting 12/25/16 15:00 01/24/17 14:59 Polyethylene Glycol (Miralax) 17 gm DAILYPRN PRN ORAL Constipation 12/25/16 15:00 01/24/17 14:59 Temazepam 15 mg 15 mg HSPRN PRN ORAL Insomnia 12/25/16 21:00 01/01/17 20:59 ANIBAL WALSH Dec 28, 2016 20:14
[2016-12-29] VITALS: BP 106/64
[2016-12-29 04:00] VITALS: BP 96/67
[2016-12-29] MEDS: metroNIDAZOLE 500mg 100 ML IVPB SCH (05:57)
[2016-12-29 07:19] LABS: BILIRUBIN,DIRECT 0.1 mg/dL (0.1-0.3); TOTAL PROTEIN 7.1 g/dL (6.6-8.7)
[2016-12-29 07:52] VITALS: BP 123/74
--- NOTE | 2016-12-29 08:07 | Diagnostic Imaging Report ---
Indication: SOB Technique: One view of the chest Comparison: 12/25/2016 Findings: The heart is enlarged. Lungs and pleural spaces are clear. No significant or change Impression: Cardiomegaly. No acute process
[2016-12-29] MEDS: Carvedilol 6.25mg Tab GT SCH ×2 (09:00→17:54)
[2016-12-29] MEDS: levETIRAcetam 500mg/5ml Liquid GT SCH (10:10)
--- NOTE | 2016-12-29 10:12 | Infectious Diseases Prog Note ---
Assessment/Plan Assessment/Plan A: Fever, SP Leukocytosis, SP Sepsis , SP possible PNA Cxray : Cardiomegaly. No acute process Transaminitis improving Ro cholecystitis Ch Hep B/C : Neg Anoxic encephalopathy Dysphagia, PEG ARF, SP Hx of CVA HTN Hx of cardiac arrest P: Cont pt on IV Cefepime d # 4 / 7 change to Levaquin ( no IV access ) , add Flagyl for now d# 2 / 5 Monitor CBC Monitor BMP, LFT Monitor Cultures ( Bl, Sp ) Monitor Cxray Us of Abd :P Subjective Constitutional: Denies: anorexia, chills, drenching sweats, fatigue, fever, no symptoms, other Allergies: Coded Allergies: No Known Allergies (Unverified , 05/31/16) Objective Vital Signs Last 24 Hour Vital Signs Date Time Temp Pulse Resp B/P Pulse Ox O2 Delivery O2 Flow Rate FiO2 12/29/16 07:52 98.1 62 20 123/74 96 Room Air 12/29/16 04:00 98.2 57 18 96/67 95 Room Air 12/29/16 00:00 98.4 58 18 106/64 96 Room Air 12/28/16 20:00 98.5 77 20 115/72 97 Room Air 12/28/16 17:28 70 110/67 12/28/16 16:05 97.2 70 19 110/67 96 Room Air 12/28/16 11:52 97.0 74 19 110/75 95 Room Air Height (Feet): 5 Height (Inches): 8.00 Weight (Pounds): 150 HEENT: anicteric Respiratory/Chest: normal breath sounds Cardiovascular: normal rate Abdomen: soft, non tender Laboratory Tests Test 12/29/16 04:35 Total Bilirubin 0.4 mg/dL (0.0-1.2) Direct Bilirubin 0.1 mg/dL (0.1-0.3) Aspartate Amino Transf (AST/SGOT) 41 U/L (5-40) H Alanine Aminotransferase (ALT/SGPT) 78 U/L (3-41) H Alkaline Phosphatase 138 U/L (40-129) H Total Protein 7.1 g/dL (6.6-8.7) Albumin 3.3 g/dL (3.5-5.2) L Current Medications Medications (Trade) Dose Ordered Sig/Danita Route PRN Reason Start Time Stop Time Status Last Admin Dose Admin Acetaminophen (Tylenol) 650 mg Q4H PRN ORAL fever>100.5 12/25/16 15:15 01/24/17 15:14 Albuterol/ Ipratropium (DuoNeb 0.5-3(2.5)mg/3ml) 3 ml Q4H PRN HHN Shortness of Breath 12/25/16 15:00 12/30/16 14:59 Baclofen (Lioresal) 10 mg THREE TIMES A DAY GT 12/25/16 18:00 01/24/17 17:59 12/28/16 17:28 Carvedilol (Coreg) 6.25 mg TWICE A DAY GT 12/25/16 18:00 01/24/17 17:59 12/28/16 17:28 Cefepime HCl 2 gm/ Dextrose 110 ml @ 220 mls/hr Q12H IV 12/26/16 21:00 01/02/17 20:59 12/28/16 20:52 Dextrose 1,000 ml @ 40 mls/hr Q24H IV 12/27/16 14:30 01/26/17 14:29 12/28/16 05:02 Heparin Sodium (Porcine) (Heparin 5000 units/ml) 5,000 units EVERY 12 HOURS SUBQ 12/25/16 21:00 01/24/17 20:59 12/28/16 20:52 Levetiracetam (Keppra) 500 mg Q12HR GT 12/25/16 21:00 01/24/17 20:59 12/28/16 20:51 Lorazepam (Ativan 2mg/ml 1ml) 1 mg Q2H PRN IV For Seizures 12/25/16 15:00 01/01/17 14:59 Metronidazole (Flagyl) 100 ml @ 100 mls/hr Q8HR IVPB 12/28/16 14:00 01/04/17 13:59 12/29/16 05:57 Morphine Sulfate (Morphine Sulfate) 2 mg Q4H PRN IVP Moderate Pain (Pain Scale 4-6) 12/25/16 15:00 01/01/17 14:59 12/25/16 18:17 Nitroglycerin (Ntg) 0.4 mg Q5M PRN SL Prn Chest Pain 12/25/16 15:00 01/24/17 14:59 Ondansetron HCl (Zofran) 4 mg Q6H PRN IVP Nausea & Vomiting 12/25/16 15:00 01/24/17 14:59 Polyethylene Glycol (Miralax) 17 gm DAILYPRN PRN ORAL Constipation 12/25/16 15:00 01/24/17 14:59 Temazepam 15 mg 15 mg HSPRN PRN ORAL Insomnia 12/25/16 21:00 01/01/17 20:59 MELISSA ELLIOTT M.D. Dec 29, 2016 10:12
[2016-12-29] MEDS: Heparin 5000 units/ml inj SUBQ SCH (10:17)
[2016-12-29] MEDS: Cefepime HCl 2 GM in D5W 110 ML IV SCH (10:19)
[2016-12-29 10:37] VITALS: BP 106/75
[2016-12-29 12:00] VITALS: BP 110/70
--- NOTE | 2016-12-29 12:17 | Diagnostic Imaging Report ---
Indication: Abnormal liver function tests abnormal renal function tests Technique: Chacon-scale and duplex images of the upper abdomen were obtained Comparison: Findings: . Gallbladder is unremarkable, without stones, wall thickening, nor pericholecystic fluid. Common bile duct measures 5 mm in diameter. No intrahepatic biliary ductal dilatation. Liver demonstrates normal echogenicity, no focal abnormality. Portal vein and hepatic veins are patent.. Pancreas is incompletely visualized due to overlying bowel gas, visualized portions are unremarkable. Spleen is unremarkable. Left kidney measures 10.5 cm in length. Right kidney measures 9.9 cm length. Both kidneys demonstrate normal echogenicity. There is no hydronephrosis. No focal abnormality. . Non-aneurysmal abdominal aorta. Bladder is empty, contains a Vizcaino catheter. No free intraperitoneal fluid Impression: Negative Note nonvisualization of the pancreatic tail
[2016-12-29] MEDS ORDERED: Levofloxacin 500mg tab GT SCH ×2 (12:30→14:00)
--- NOTE | 2016-12-29 13:40 | General Progress Note ---
Assessment/Plan Status: stable Assessment/Plan Status: Acute renal failure- resolving Dehydration resolving Sepsis CVA / Hypoxic Encephalopathy PEG High LFTs ? Keppra related ? Plan: No labs today- DC sim Lu supplement as needed Monitor renal parameters Avoid Nephrotoxics DC planing Subjective ROS Limited/Unobtainable: No Constitutional: Reports: malaise Allergies: Coded Allergies: No Known Allergies (Unverified , 05/31/16) Objective Last 24 Hour Vital Signs Date Time Temp Pulse Resp B/P Pulse Ox O2 Delivery O2 Flow Rate FiO2 12/29/16 09:00 66 106/75 12/29/16 07:52 98.1 62 20 123/74 96 Room Air 12/29/16 04:00 98.2 57 18 96/67 95 Room Air 12/29/16 00:00 98.4 58 18 106/64 96 Room Air 12/28/16 20:00 98.5 77 20 115/72 97 Room Air 12/28/16 17:28 70 110/67 12/28/16 16:05 97.2 70 19 110/67 96 Room Air Intake and Output 12/28/16 12/29/16 19:00 07:00 Intake Total 810 ml 1310 ml Output Total 250 ml 250 ml Balance 560 ml 1060 ml Free Water 100 ml 200 ml IV Total 500 ml 750 ml Tube Feeding 210 ml 360 ml Output Urine Total 250 ml 250 ml Laboratory Tests 12/29/16 04:35: Total Bilirubin 0.4, Direct Bilirubin 0.1, Aspartate Amino Transf (AST/SGOT) 41H , Alanine Aminotransferase (ALT/SGPT) 78H, Alkaline Phosphatase 138H, Total Protein 7.1, Albumin 3.3L Height (Feet): 5 Height (Inches): 8.00 Weight (Pounds): 150 General Appearance: no apparent distress Cardiovascular: normal rate Respiratory/Chest: decreased breath sounds Objective no other changes MARCUS FERNANDEZ Dec 29, 2016 13:40
[2016-12-29] MEDS ORDERED: metroNIDAZOLE 500mg tab ORAL SCH (14:00)
[2016-12-29 16:00] VITALS: BP 107/69
[2016-12-29] MEDS ORDERED: FLAGYL500 MG ORAL (17:03)
[2016-12-29] MEDS ORDERED: FLOMAX0.4 MG ORAL (17:03)
[2016-12-29] MEDS ORDERED: LEVAQUIN500 MG GT (17:03)
[2016-12-29] MEDS ORDERED: Sterile Water Irrig 1000ml IRRIG ONE (20:42)
[2016-12-29] MEDS ORDERED: Tamsulosin 0.4mg cap ORAL SCH (21:00)
--- NOTE | 2016-12-29 21:17 | Consultation ---
DATE OF CONSULTATION: 12/27/2016 INFECTIOUS DISEASES CONSULTATION This consult is for coverage for Dr. Davis. CONSULTING PHYSICIAN: Chirag Etienne M.D. PRIMARY ATTENDING PHYSICIAN: Bam Powell M.D. REASON FOR CONSULT: Sepsis, pneumonia. HISTORY OF PRESENT ILLNESS: The patient is a 51-year-old male admitted on 12/25/2016 from a [facility] facility because of shaking. The patient had a fever of 100.9 degrees in the hospital, was found to have acute renal failure with a creatinine of 2.7, had leukocytosis at the time of admission, was hypernatremic, empirically started on IV antibiotics. Currently, afebrile. PAST MEDICAL HISTORY: History of CVA. 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 He has a history of cardiac arrest and anoxic encephalopathy. MEDICATIONS: Getting vancomycin, cefepime, heparin, Keppra, temazepam, baclofen, carvedilol, Tylenol, Duo-Neb inhaler, lorazepam, morphine sulfate, Zofran, and polyethylene glycol. ALLERGIES: No known drug allergy. SOCIAL HISTORY: long-term resident. No history of alcohol or drug abuse recently. REVIEW OF SYSTEMS: Unobtainable. The patient communicates slightly with nodding. He has pain. PHYSICAL EXAMINATION: GENERAL: He is in no acute distress. VITAL SIGNS: Temperature 97.7 degrees, pulse 65, and blood pressure 101/64. HEENT: [place] conjunctivae. HEART: Regular. LUNGS: Clear. ABDOMEN: Soft. The patient has G-tube feeding. EXTREMITIES: He has no edema. He has flexion contractures on the right side. LABORATORY AND DIAGNOSTIC DATA: WBC 8.8, hemoglobin 13.1, hematocrit 41.7, and platelet 283,000. Sodium 148, potassium 3.7, chloride 110, bicarbonate 20, BUN 20, and creatinine 1. AST 14, ALT 100, and alkaline phosphatase is 163. Bilirubin is normal. The patient had lactic acidosis of 3.3 at the time of admission. Chest x-ray showed atelectasis and also pneumonia in the left base. CT scan of the head showed old left frontal infarct. IMPRESSION: Sepsis with fever and leukocytosis at the time of admission. The patient also had acute renal failure. He has pneumonia in the left lung. History of cerebrovascular accident and right hemiplegia. He is status post gastrostomy tube. He is aphasic. RECOMMENDATION: We will continue with Cefepime. MRSA screen negative, so we will discontinue vancomycin. We will follow up the cultures at the end of my exam. I thank, Dr. Powell, for involving me in the care of this patient. Chirag Etienne M.D. DR: PONCE JOB#: [id number] CC:
--- NOTE | 2016-12-30 18:28 | Electroencephalogram ---
DATE OF PROCEDURE: 12/25/2016 REFERRING PHYSICIAN: Bam Powell M.D. HISTORY: This is a 51-year-old man with a new onset of predominantly left-sided voluntary jerking. 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 TECHNIQUE: During the recording, the patient described as being awake, drowsy, but poorly cooperative with signs of retardation. EEG was done using 18 electrodes placed scalp to scalp, scalp to ear montages according to 10/20 International System. In addition left arm EMG monitor was placed. Most of the recording background consists of low voltage poorly organized mixture of 6-7 hertz activities with intermittently appearing sharp wave transients in a right frontal central area corresponding to the marked EMG activity from left arm. Several epochs of occasional appearance of spike wave transients noted in the left frontal central area without corresponding EMG, activities times generalized with no clinical signs of seizure activity with involuntary movement. There was no asymmetry from side to side. The patient was in and out of sleep. The patient pulled the electrodes during the recording and the test was ended prematurely. IMPRESSION: Abnormal electroencephalogram with intermittent spike wave in the right frontal central region transients as well as low amplitude slowing. COMMENT: EMG activity corresponding to left arm jerking were documented and correlated with similar sharp wave activity emanating from left frontal central region as well as being generalized. This resembles an EMG artifacts, although once no evidence of EMG abnormalities noted, spike wave activity still continued in the left frontal central region indicating presence of a epileptogenic focus. Clinical correlation is necessary. Corwin Wilkins M.D. DR: KARRIE JOB#: [id number] CC:
--- NOTE | 2016-12-30 19:01 | Discharge Summary ---
Discharge Summary Hospital Course Date of Admission Dec 25, 2016 at 01:15 Date of Discharge Dec 29, 2016 at 20:43 Admitting Diagnosis sepsis IRVING Chen is a 51 year old male who was admitted on Dec 25, 2016 at 01: 15 for Sepsis Hospital Course [id number] Discharge Discharge Disposition Patient was discharged to SNF/Subacute Facility(03) Discharge Diagnoses: Kita Song NP Dec 30, 2016 19:01
--- NOTE | 2016-12-31 08:28 | Discharge Summary 2 SIG ---
DATE OF ADMISSION: 12/25/2016 DATE OF DISCHARGE: 12/29/2016 CONSULTANTS: 1. Corwin Wilkins M.D. 2. Randy Veliz M.D. 3. Celestine Davis M.D. BRIEF HOSPITAL COURSE: The patient is a 51-year-old male, who was brought to the hospital for shakiness and tremulousness. On evaluation at ED, was found to have leukocytosis, evidence of acute kidney failure, lactic acidosis, and dehydration. Chest x-ray showed left basilar infiltrate and heart rate has been tachycardic. Infectious Disease consult was done and was initially started on vancomycin and cefepime. The patient also had fever. MRSA screen was negative. Vancomycin was discontinued, which later on was changed to Levaquin as there was no IV access. Flagyl was added. He was seen by neurology consult. The patient has a history of heavy drug use five years ago fell down and had severe head trauma and developed cardiopulmonary arrest. From then developed anoxic encephalopathy. Now, the patient was presenting with new onset of involuntary irregular muscle jerk. He was given IV Ativan and was started on Keppra 250 mg b.i.d. He had an EEG done, which showed abnormal results. EEG with intermittent spike-wave in the right frontal central region, transient as well as low amplitude slowing. Gavino-wave activity continued in the left frontal central region indicating presence of epileptogenic focus. Dr. Veliz was consulted for evaluation of acute renal failure and was given IV hydration. Urine and blood cultures all were negative. The patient had elevated LFTs. Abdominal ultrasound was negative. He was eventually discharged to SNF to continue Flagyl 500 mg q.8 h. G-tube for 3 days and Levaquin 500 mg G-tube daily for three days. FINAL DIAGNOSES: 1. Sepsis. 2. Acute renal failure with tubular necrosis. 3. Anoxic encephalopathy. 4. Dehydration. 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 6. Elevated liver transaminases. 7. Dysphagia, on percutaneous endoscopic gastrostomy. 8. Possible pneumonia. 9. History of cardiac arrest. 10. Possible seizure. Mirali Zarrabi, M.D. I have been assigned to dictate discharge summary on this account and I was not involved in the patient's management. Kita Song N.P. DR: FIDEL JOB#: [id number] CC: TONG
== END 2016-12-29 20:43 | DRG 720 ==
LOC: EDBD 23:42 → EMR 23:59 → EDBEDREQ 12-25 01:08 → 2E 12-25 01:15 → EDBEDREQ 12-25 02:09 → 2E 12-25 03:09 → 4W 12-25 14:51
DX: A41.9 Sepsis, unspecified organism (principal); N17.0 Acute kidney failure with tubular necrosis; G93.1 Anoxic brain damage, not elsewhere classified; Z86.74 Personal history of sudden cardiac arrest; J18.9 Pneumonia, unspecified organism; E86.0 Dehydration; N17.9 Acute kidney failure, unspecified; I69.351 Hemiplegia and hemiparesis following cerebral infarction affecting right dominant side; Z43.1 Encounter for attention to gastrostomy; F19.21 Other psychoactive substance dependence, in remission; Z87.820 Personal history of traumatic brain injury; I69.320 Aphasia following cerebral infarction; R65.20 Severe sepsis without septic shock
CPT/HCPCS: 36415; 70450; 71010; 76700; 80048; 80053; 80061; 80076; 80202; 81003; 82140; 82330; 82550; 82553; 82977; 83036; 83605; 83735; 83880; 84100; 84300; 84484; 84550; 85007; 85025; 85610; 85651; 85730; 86039; 86140; 86705; 86709; 86803; 87040; 87081; 87340; 93005; 94664; 94760; 95819

== ENCOUNTER → 2017-01-17 | Emergency (ER) | payer MEDICAID ==
[~2017-01-17] VITALS: Ht 180.3 cm; Wt 81.6 kg
[~2017-01-17] MED LIST changes: +ACETAMINOPHEN325 M1 GT; +FLAGYL500 MG ORAL; +FLEET ENEMA133 M1 RC; +FLOMAX0.4 MG ORAL; +LACTULOSE20 GM/301 ORAL; +LEVAQUIN500 MG GT; +REGLAN5 MG GT
[2017-01-17 00:24] VITALS: BP 114/69
[2017-01-17 01:00] VITALS: BP 114/69
--- NOTE | 2017-01-17 01:04 | Emergency Room Report ---
History of Present Illness General Chief Complaint: Malfunctioning Gastric Tube Source: Medical Record, EMS Present Illness HPI This is a 51-year-old male, [facility] patient with multiple medical problem. He has a feeding tube in. He presents with chief complaint of tube dislodgment. This occurred today. They placed a 16 [place] Vizcaino in. Unable to get any other history from patient. There was no complaint. No fever or chills. Patient is at baseline. Allergies: Coded Allergies: No Known Allergies (Unverified , 05/31/16) Patient History Past Medical History: see triage record, old chart reviewed Past Surgical History: other Pertinent Family History: none Social History: Denies: smoking Immunizations: other Reviewed Nursing Documentation: PMH: Agreed, PSxH: Agreed Nursing Documentation-PMH Past Medical History: No History, Except For Hx Cardiac Problems: Yes - Unstable angina, cardiomyopathy Hx Hypertension: Yes Hx Cancer: No Hx Gastrointestinal Problems: Yes - JT, GERD, dysphagia History Of Psychiatric Problem: Yes - Major depressive disorder Hx Neurological Problems: Yes - Hemiplegia, hemiparesis, OA Hx Cerebrovascular Accident: Yes - hemiplegia, hemiparesis Review of Systems Eye: Denies: blurred vision, eye pain ENT: Denies: ear pain, nose congestion, throat swelling Respiratory: Denies: cough, shortness of breath Cardiovascular: Denies: chest pain, palpitations Gastrointestinal: Denies: abdominal pain, diarrhea, nausea, vomiting Musculoskeletal: Denies: back pain, joint pain Skin: Denies: rash Neurological: Denies: headache, numbness Endocrine: Denies: increased thirst, increased urine Hematologic/Lymphatic: Denies: easy bruising All Other Systems: negative except mentioned in HPI Physical Exam Vital Signs Date Time Temp Pulse Resp B/P Pulse Ox O2 Delivery O2 Flow Rate FiO2 01/17/17 00:14 98.4 70 20 114/69 95 Room Air vitals normal Sp02 EP Interpretation: reviewed, normal General Appearance: well appearing, no apparent distress, alert Head: normocephalic, atraumatic Eyes: bilateral eye EOMI, bilateral eye PERRL ENT: hearing grossly normal, normal pharynx Neck: full range of motion, supple, no meningismus Respiratory: chest non-tender, lungs clear, normal breath sounds Cardiovascular #1: regular rate, rhythm, no murmur Gastrointestinal: normal bowel sounds, non tender, no mass, no organomegaly, no bruit, non-distended, other - 16 [place] Vizcaino at site of feeding tube. No redness around it. Musculoskeletal: back normal Neurologic: alert Psychiatric: mood/affect normal Skin: warm/dry Procedures Additional Procedure Procedure Narrative Procedure: G-tube placement Indication: G-tube malfunction/dislodgment Description: I placed an 18 [place] G-tube without any difficulty. Was inflated and flushed easily. Patient tolerated procedure without any difficulty. X-ray done to confirm placement. Medical Decision Making Diagnostic Impression: Primary Impression: Malfunction of gastrostomy tube ER Course Patient here for the G-tube placement. Replaced easily. No evidence of extravasation. [facility]'ll [facility]. Other X-Ray Diagnostic Results Other X-Ray Diagnostic Results : X-Ray Ordered: KUB with Gastrografin Date: Jan 17, 2017 Time: 01:04 EP Interpretation: Yes Findings: no fractures, no dislocation, no soft tissue swelling, other - No extravasation. G-tube in good position. Number of Views: 1 Last Vital Signs Date Time Temp Pulse Resp B/P Pulse Ox O2 Delivery O2 Flow Rate FiO2 01/17/17 00:24 98.4 70 20 114/69 95 Room Air Status: improved Disposition: XFER SNF Condition: Stable Patient Instructions: Gastrostomy Tube Home Guide, Adult Additional Instructions: Followup with your DrSunny in 7 days as needed. Return if worse. MADHU SLATER M.D. Jan 17, 2017 01:04
== END ==
LOC: EDUNIT# 00:12 → EDBD 00:28 → EMR 00:35
DX: K94.23 Gastrostomy malfunction (principal); I10 Essential (primary) hypertension; K21.9 Gastro-esophageal reflux disease without esophagitis; Z86.59 Personal history of other mental and behavioral disorders; M19.90 Unspecified osteoarthritis, unspecified site; G81.90 Hemiplegia, unspecified affecting unspecified side; I20.0 Unstable angina; I42.9 Cardiomyopathy, unspecified
CPT/HCPCS: 43760; 74000

== ENCOUNTER 2017-04-12 11:25 | Emergency (ER) | payer MEDICAID ==
[~2017-04-12] VITALS: Ht 182.9 cm; Wt 77.1 kg
[2017-04-12 11:32] VITALS: BP 126/83
[2017-04-12 13:13] VITALS: BP 150/71
--- NOTE | 2017-04-12 16:34 | Diagnostic Imaging Report ---
This report is incorporated into the x-ray abdomen report 04/12/17 at 12:46
--- NOTE | 2017-04-14 06:48 | Emergency Room Report ---
History of Present Illness General Chief Complaint: Malfunctioning Gastric Tube Source: Patient, EMS Present Illness HPI 52YOM sent from SNF for displaced 14F Gtube replacement. Patient misplaced it this morning. SNF put Vizcaino in in its place. Patient aphasic at baseline, not contributing to HPI SNF, EMS deny vomiting, fever/chills, diarrhea. Allergies: Coded Allergies: No Known Allergies (Unverified , 05/31/16) Patient History Limited by: medical condition Past Medical History: see triage record, old chart reviewed Past Surgical History: other - PEG Pertinent Family History: none Social History: Denies: alcohol use, drug use, smoking Immunizations: UTD Reviewed Nursing Documentation: PMH: Agreed, PSxH: Agreed Nursing Documentation-PMH Past Medical History: No History, Except For Hx Cardiac Problems: Yes - Unstable angina, cardiomyopathy, s/p cardiac arrest Hx Hypertension: Yes Hx Cancer: No Hx Gastrointestinal Problems: Yes - JT, GERD, dysphagia History Of Psychiatric Problem: Yes - depression, anxiety Hx Neurological Problems: Yes - Hemiplegia, hemiparesis, OA Hx Cerebrovascular Accident: Yes - hemiplegia, hemiparesis Review of Systems All Other Systems: negative except mentioned in HPI Physical Exam Vital Signs Date Time Temp Pulse Resp B/P Pulse Ox O2 Delivery O2 Flow Rate FiO2 04/12/ 11:19 98.4 96 18 126/83 99 Room Air Sp02 EP Interpretation: reviewed, normal General Appearance: normal inspection, well appearing, no apparent distress, alert, GCS 15, non-toxic, other - Smiling, ineractive Head: normocephalic, atraumatic Eyes: bilateral eye EOMI, bilateral eye PERRL ENT: normal ENT inspection, hearing grossly normal, normal voice Neck: normal inspection, full range of motion, supple, no bony tend Respiratory: normal inspection, lungs clear, normal breath sounds, no respiratory distress, no retraction, no wheezing Cardiovascular #1: regular rate, rhythm, no edema Gastrointestinal: normal inspection, normal bowel sounds, non tender, soft, no guarding, no hernia, other - Vizcaino cath holding open GTUBE site stoma. No surrounding infection Genitourinary: no CVA tenderness Musculoskeletal: normal inspection, back normal, normal range of motion, Amy' s Sign negative Neurologic: normal inspection, alert, oriented x3, responsive, leach tank tender III-XII nml as tested, motor strength/tone normal, speech normal Psychiatric: normal inspection, judgement/insight normal, mood/affect normal Skin: normal inspection, normal color, no rash Procedures Additional Procedure Procedure Narrative Patient positioned upright Area cleaned 3x with providine, allowed to dry Sterile procedure employed 18F lubed on end, passed thru stoma without issue or bleeding Balloon inflated with 20cc sterile water Patient tolerated well No complications Medical Decision Making Diagnostic Impression: Primary Impression: PEG (percutaneous endoscopic gastrostomy) adjustment/replacement/removal ER Course Gtube replaced - see procedure note VSS. Afebrile. Asymptomatic No complaints No signs of sepsis Initial KUB showed Gtube ?duodenum - was pulled back 3-4cm and reshot after discussion with Dr Wyatt Official radiology review/dictation has not crossed over to system as of 2 days later On ED review, Gtube is in satisfactory position DC back to SNF Other X-Ray Diagnostic Results Other X-Ray Diagnostic Results : # of Views/Limited Vs Complete: 1 View Indication: Other - Gtube replacement EP Interpretation: Yes Interpretation: nonspecific bowel gas, no sbo, other - Gastrogaffin in stomach Last Vital Signs Date Time Temp Pulse Resp B/P Pulse Ox O2 Delivery O2 Flow Rate FiO2 04/12/17 13:13 98.4 70 18 150/71 96 Room Air Status: improved Disposition: ER SNF Condition: Improved Referrals: BRETT VENCES (PCP) Patient Instructions: Gastrostomy Tube Home Guide, Adult Additional Instructions: - Gtube replaced - 18F size KARY AKHTAR M.D. Apr 14, 2017 06:48
== END 2017-04-12 13:17 ==
LOC: EDBD 11:25 → EMR 11:40
DX: K94.29 Other complications of gastrostomy (principal); I69.859 Hemiplegia and hemiparesis following other cerebrovascular disease affecting unspecified side; F32.9 Major depressive disorder, single episode, unspecified; F41.9 Anxiety disorder, unspecified; K21.9 Gastro-esophageal reflux disease without esophagitis; I10 Essential (primary) hypertension
CPT/HCPCS: 43760; 74000

== ENCOUNTER 2017-05-23 16:55 | Emergency (ER) | payer MEDICAID ==
[~2017-05-23] VITALS: Ht 182.9 cm; Wt 77.1 kg
--- NOTE | 2017-05-23 17:00 | Emergency Room Report ---
History of Present Illness General Chief Complaint: Malfunctioning Gastric Tube Source: EMS Present Illness HPI Patient sent in because G tube pulled out. Montemayor placed in interim. No fevers, vomiting. Patient without complaints, but ebullic. Discharge 12/29/16 with these diagnoses: FINAL DIAGNOSES: 1. Sepsis. 2. Acute renal failure with tubular necrosis. 3. Anoxic encephalopathy. 4. Dehydration. 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 6. Elevated liver transaminases. 7. Dysphagia, on percutaneous endoscopic gastrostomy. 8. Possible pneumonia. 9. History of cardiac arrest. 10. Possible seizure. Allergies: Coded Allergies: No Known Allergies (Unverified , 05/31/16) Patient History Limited by: medical condition Past Medical History: see triage record, old chart reviewed Past Surgical History: other - G tube Social History Narrative snf Reviewed Nursing Documentation: PMH: Agreed, PSxH: Agreed Nursing Documentation-PMH Hx Cardiac Problems: Yes - Unstable angina, cardiomyopathy, s/p cardiac arrest Hx Hypertension: Yes Hx Cancer: No Hx Neurological Problems: Yes - Hemiplegia, hemiparesis, OA Hx Cerebrovascular Accident: Yes - RIGHT SIDE WEAKNES Review of Systems All Other Systems: limited Physical Exam Vital Signs Date Time Temp Pulse Resp B/P (MAP) Pulse Ox O2 Delivery O2 Flow Rate FiO2 05/23/17 16:43 98.1 62 16 132/80 99 Room Air Sp02 EP Interpretation: reviewed, normal General Appearance: no apparent distress, alert, Chronically Ill Head: normocephalic, atraumatic Eyes: bilateral eye normal inspection, bilateral eye PERRL ENT: hearing grossly normal, moist mucus membranes Neck: full range of motion, supple Respiratory: no respiratory distress Cardiovascular #1: normal peripheral pulses, regular rate, rhythm Gastrointestinal: normal bowel sounds, non tender, soft, other - g tube site with montemayor Musculoskeletal: other - some contractures Neurologic: alert Psychiatric: other - looks at examiner and nods on occasion Skin: normal inspection, no rash Procedures Additional Procedure Procedure Narrative replace G tube with ease. Gastric contents. Medical Decision Making Diagnostic Impression: Primary Impression: Malfunction of gastrostomy tube Additional Impression: Anoxic brain damage syndrome ER Course Patient here for G tube replacement. Not appear toxic. G tube replaced with ease. Xray confirms placement. Patient stable for outpatient observation and treatment. Other X-Ray Diagnostic Results Other X-Ray Diagnostic Results : X-Ray ordered: abd gastrograffin # of Views/Limited Vs Complete: 1 View Indication: Other Interpretation: nonspecific bowel gas, no sbo, other - G tube in place Impression: Other Interpreting ER Provider: celestino Hsu MD Last Vital Signs Date Time Temp Pulse Resp B/P (MAP) Pulse Ox O2 Delivery O2 Flow Rate FiO2 05/23/17 17:56 66 18 118/80 98 Room Air 05/23/17 16:43 98.1 Status: improved Disposition: XF SNF Condition: Improved Doe Hsu M.D. May 23, 2017 17:00
[2017-05-23 17:56] VITALS: BP 118/80
--- NOTE | 2017-05-24 11:56 | Diagnostic Imaging Report ---
Indication: Gastrostomy check Comparison: None Single view of the abdomen obtained Gastrostomy balloon is within the body of the stomach. There is no leak. Contrast noted in the stomach and duodenum. Impression: Appropriate position of gastrostomy. No leak
== END 2017-05-23 17:57 ==
LOC: EDBD 16:55 → EMR 17:13
DX: K94.23 Gastrostomy malfunction (principal); G93.1 Anoxic brain damage, not elsewhere classified; G81.91 Hemiplegia, unspecified affecting right dominant side; I25.2 Old myocardial infarction; I11.9 Hypertensive heart disease without heart failure
CPT/HCPCS: 43760; 74000; 99283; Q9963

== ENCOUNTER 2017-06-20 17:57 | Inpatient (IN) | payer MEDICAID ==
[~2017-06-20] VITALS: Ht 175.3 cm; Wt 77.1 kg
[2017-06-20 18:49] VITALS: BP 127/84
[2017-06-20 19:32] VITALS: BP 122/75
--- NOTE | 2017-06-20 20:45 | Emergency Room Report ---
History of Present Illness General Chief Complaint: Malfunctioning Gastric Tube Source: Medical Record, EMS (MIGUEL A URIBE M.D.) Present Illness HPI 52YOM BIBEMS for ?dislodged Gtube while being bathed at SNF 16g Vizcaino was placed in stoma Was recently replaced here last month SNF and EMS deny other complaints in patient - no vomiting, fever Patient ?aphasic at baseline - not providing additional HPI at this time (MIGUEL A URIBE M.D.) Allergies: Coded Allergies: No Known Allergies (Unverified , 05/31/16) Patient History Past Medical History: see triage record, old chart reviewed Past Surgical History: other - Gutbe placement Pertinent Family History: none Social History: Denies: smoking, alcohol use, drug use Immunizations: UTD Reviewed Nursing Documentation: PMH: Agreed, PSxH: Agreed (MIGUEL A URIBE M.D.) Nursing Documentation-PMH Hx Cardiac Problems: Yes - Unstable angina, cardiomyopathy, s/p cardiac arrest Hx Hypertension: Yes Hx Cancer: No Hx Neurological Problems: Yes - Hemiplegia, hemiparesis, OA Hx Cerebrovascular Accident: Yes - RIGHT SIDE WEAKNES (MIGUEL A URIBE M.D.) Review of Systems All Other Systems: negative except mentioned in HPI (MIGUEL A URIBE M.D.) Physical Exam Vital Signs Date Time Temp Pulse Resp B/P (MAP) Pulse Ox O2 Delivery O2 Flow Rate FiO2 06/20/17 17:56 98.2 62 20 123/82 99 Room Air Sp02 EP Interpretation: reviewed, normal General Appearance: normal inspection, well appearing, no apparent distress, alert Head: normocephalic, atraumatic Eyes: bilateral eye PERRL, bilateral eye EOMI ENT: normal ENT inspection, no angioedema Neck: normal inspection, full range of motion, supple, no bony tend Respiratory: normal inspection, lungs clear, normal breath sounds, no respiratory distress, no retraction, no wheezing Cardiovascular #1: regular rate, rhythm, no edema Gastrointestinal: normal inspection, normal bowel sounds, non tender, soft, no guarding, no hernia, other - 18F GTube in place. Balloon inflated. No sign of infection Genitourinary: no CVA tenderness Musculoskeletal: normal inspection, back normal, normal range of motion, Amy' s Sign negative Neurologic: normal inspection, alert, responsive, director of cath lab III-XII nml as tested, motor strength/tone normal, speech normal Psychiatric: normal inspection, judgement/insight normal, mood/affect normal Skin: normal inspection, normal color, no rash (MIGUEL A URIBE M.D.) Procedures Additional Procedure Procedure Narrative Patient positioned upright Area cleaned 3x with providine, allowed to dry Sterile procedure employed Vizcaino removed from stoma 18F Gtube passed without difficulty Tube then reinflated easily with sterile water. We were able to flush tube without difficulty Secured to stomach with tape Patient tolerated well No complications (MIGUEL A URIBE M.D.) Medical Decision Making Diagnostic Impression: Primary Impression: Malfunction of gastrostomy tube Additional Impression: Hypoxemic encephalopathy ER Course Gtube is in place after multiple attempts - initial attempt showed likely tube in proximal SB Third attempt made prior to signout - looks satisfactory on my ED review Signed out to Dr Hsu at 10pm to confirm via [facility] placement and send back to SNF KUB 1 view ED review Contrast in stomach, residual contrast seen in intestine from first time contrast was pushed in KUB No free air. No air-fluid levels Dr Miguel A Uribe MD (MIGUEL A URIBE M.D.) ER Course Patient signed out to me. Repeat abd film after replacement of G tube by Dr. Uribe in small bowel, not in stomach. I replace the G tube 05/23. It was in the stomach at that time. Xray results: Gastrostomy balloon is within the body of the stomach. There is no leak. Contrast noted in the stomach and duodenum. Impression: Appropriate position of gastrostomy. No leak Patient examined. Responsive and seems to understand. No abdominal tenderness. Moist membs. Normal lung exam. Unable to ascertain that the G tube is in the appropriate place. Radiologist suggested possibly placing guidewire to move tip through pylorus (something a specialist needs to do). Attempt to determine GI specialist who placed tube initially. No documentation found. Discussed with Dr. Powell who suggests admission for observation and GI consult. IV hydration begun and labs obtained. UA obtained just before admitted. Labs performed and patient admitted to Dr. Powell. Laboratory Tests Test 06/21/17 00:00 06/21/17 00:25 06/21/17 04:50 White Blood Count 5.2 K/UL (4.8-10.8) 5.5 K/UL (4.8-10.8) Red Blood Count 5.42 M/UL (4.70-6.10) 5.22 M/UL (4.70-6.10) Hemoglobin 16.7 G/DL (14.2-18.0) 15.9 G/DL (14.2-18.0) Hematocrit 49.3 % (42.0-52.0) 48.1 % (42.0-52.0) Mean Corpuscular Volume 91 FL (80-99) 92 FL (80-99) Mean Corpuscular Hemoglobin 30.8 PG (27.0-31.0) 30.5 PG (27.0-31.0) Mean Corpuscular Hemoglobin Concent 33.8 G/DL (32.0-36.0) 33.1 G/DL (32.0-36.0) Red Cell Distribution Width 12.1 % (11.6-14.8) 12.5 % (11.6-14.8) Platelet Count 370 K/UL (150-450) 387 K/UL (150-450) Mean Platelet Volume 6.1 FL (6.5-10.1) L 6.2 FL (6.5-10.1) L Neutrophils (%) (Auto) 42.6 % (45.0-75.0) L 44.5 % (45.0-75.0) L Lymphocytes (%) (Auto) 45.7 % (20.0-45.0) H 45.8 % (20.0-45.0) H Monocytes (%) (Auto) 7.3 % (1.0-10.0) 5.9 % (1.0-10.0) Eosinophils (%) (Auto) 2.6 % (0.0-3.0) 1.9 % (0.0-3.0) Basophils (%) (Auto) 1.8 % (0.0-2.0) 1.8 % (0.0-2.0) Prothrombin Time 10.6 SEC (9.30-11.50) Prothrombin Time INR 1.0 (0.9-1.1) PTT 30 SEC (23-33) 31 SEC (23-33) Sodium Level 142 mEQ/L (135-145) 141 mEQ/L (135-145) Potassium Level 4.4 mEQ/L (3.4-4.9) 4.7 mEQ/L (3.4-4.9) Chloride Level 101 mEQ/L (98-107) 102 mEQ/L (98-107) Carbon Dioxide Level 28 mEQ/L (20-30) 28 mEQ/L (20-30) Anion Gap 13 (5-15) 11 (5-15) Blood Urea Nitrogen 15 mg/dL (7-23) 14 mg/dL (7-23) Creatinine 1.0 mg/dL (0.7-1.2) 1.0 mg/dL (0.7-1.2) Estimate Glomerular Filtration Rate > 60 mL/min (>60) > 60 mL/min (>60) Glucose Level 91 mg/dL (74-106) 93 mg/dL (74-106) Calcium Level 10.0 mg/dL (8.6-10.2) 9.8 mg/dL (8.6-10.2) Total Bilirubin 0.5 mg/dL (0.0-1.2) 0.6 mg/dL (0.0-1.2) Aspartate Amino Transferase (AST) 21 U/L (5-40) 20 U/L (5-40) Alanine Aminotransferase (ALT) 23 U/L (3-41) 23 U/L (3-41) Alkaline Phosphatase 88 U/L (40-129) 86 U/L (40-129) Total Creatine Kinase 153 U/L (38-174) Total Protein 7.9 g/dL (6.6-8.7) 8.2 g/dL (6.6-8.7) Albumin 4.4 g/dL (3.5-5.2) 4.4 g/dL (3.5-5.2) Globulin 3.5 g/dL 3.8 g/dL Albumin/Globulin Ratio 1.2 (1.0-2.7) 1.1 (1.0-2.7) Lipase 89 U/L (< 60) H 83 U/L (< 60) H Urine Color Yellow Urine Appearance Clear Urine pH 8 (4.5-8.0) Urine Specific [place] 1.010 (1.005-1.035) Urine Protein 1+ (NEGATIVE) H Urine Glucose (UA) Negative (NEGATIVE) Urine Ketones Negative (NEGATIVE) Urine Occult Blood Negative (NEGATIVE) Urine Nitrite Negative (NEGATIVE) Urine Bilirubin Negative (NEGATIVE) Urine Urobilinogen Normal MG/DL (0.0-1.0) Urine Leukocyte Esterase 1+ (NEGATIVE) H Urine RBC 0-2 /HPF (0 - 0) H Urine WBC 0-2 /HPF (0 - 0) Urine Squamous Epithelial Cells Occasional /LPF Urine Amorphous Sediment Moderate /LPF (NONE) H Urine Bacteria Occasional /HPF (NONE) Urine Mucus Few /LPF (NONE/OCC) H Amylase Level 119 U/L (10-110) H (Doe Hsu M.D.) Other X-Ray Diagnostic Results Other X-Ray Diagnostic Results : X-Ray ordered: abd # of Views/Limited Vs Complete: 1 View Indication: Other Interpretation: nonspecific bowel gas, no sbo, other - G tube in small bowel Impression: Other Electronically Signed by: Doe Hsu MD (Doe Hsu M.D.) Last Vital Signs Date Time Temp Pulse Resp B/P (MAP) Pulse Ox O2 Delivery O2 Flow Rate FiO2 06/20/17 18:49 98.1 65 19 127/84 98 Room Air Status: improved (MIGUEL A URIBE M.D.) Status: unchanged (Doe Hsu M.D.) Disposition: ADMITTED INPATIENT Condition: Serious Referrals: BRETT VENCES (PCP) Patient Instructions: Gastrostomy Tube Home Guide, Adult Additional Instructions: - GTUBE is in place and functioning MIGUEL A URIBE M.D. Jun 20, 2017 20:45 Doe Hsu M.D. Jun 21, 2017 01:13
[2017-06-20 21:40] VITALS: BP 130/74
[2017-06-20] MEDS ORDERED: Miralax 17gm pkt ORAL PRN (23:30)
[2017-06-20] MEDS ORDERED: Metoclopramide 10mg/2ml Inj IVP PRN (23:30)
[2017-06-20] MEDS ORDERED: LORazepam Inj 2mg/ml 1ml IV PRN (23:30)
[2017-06-20] MEDS ORDERED: Nitroglycerin Subl 0.4mg tab SL PRN (23:30)
[2017-06-20] MEDS ORDERED: Mylanta II UD 30ml ORAL PRN (23:30)
[2017-06-20] MEDS ORDERED: Morphine Sulfate 2mg/ml Inj IVP PRN (23:30)
[2017-06-21] VITALS (7 sets, daily range): BP systolic 109–128; BP diastolic 68–86
[2017-06-21 00:34] LABS: BASOPHILS % (AUTO) 1.8 % (0.0-2.0); EOSINOPHILS % (AUTO) 2.6 % (0.0-3.0); LYMPHOCYTES % (AUTO) 45.7 % (20.0-45.0); MEAN CORPUSCULAR HEMOGLOBIN 30.8 PG (27.0-31.0); MEAN CORPUSCULAR HGB CONC 33.8 G/DL (32.0-36.0); MEAN CORPUSCULAR VOLUME 91 FL (80-99); MEAN PLATELET VOLUME 6.1 FL (6.5-10.1); MONOCYTES % (AUTO) 7.3 % (1.0-10.0); NEUTROPHILS % (AUTO) 42.6 % (45.0-75.0); PLATELET COUNT 370 K/UL (150-450); RED BLOOD COUNT 5.42 M/UL (4.70-6.10); RED CELL DISTRIBUTION WIDTH 12.1 % (11.6-14.8); WHITE BLOOD COUNT 5.2 K/UL (4.8-10.8)
[2017-06-21 00:46] LABS: APPEARANCE,URINE CLEAR; KETONES,URINE NEGATIVE (NEGATIVE); LEUKOCYTE ESTERASE ,URINE 1+ (NEGATIVE); NITRITE,URINE NEGATIVE (NEGATIVE); PH,URINE 8 (4.5-8.0); PROTEIN,URINE 1+ (NEGATIVE); UROBILINOGEN,URINE NORMAL MG/DL (0.0-1.0)
[2017-06-21 00:46] LABS: PROTHROMBIN TIME 10.6 SEC (9.30-11.50)
[2017-06-21 00:50] LABS: ALANINE AMINOTRANSFERASE 23 U/L (3-41); ALBUMIN/GLOBULIN RATIO 1.2 (1.0-2.7); ANION GAP 13 (5-15); ASPARTATE AMINO TRANSFERASE 21 U/L (5-40); CARBON DIOXIDE 28 mEQ/L (20-30); CHLORIDE 101 mEQ/L (98-107); GLOMERULAR FILTRATION RATE > 60 mL/min (>60); HEMOLYSIS 3; LIPASE 89 U/L (< 60); POTASSIUM 4.4 mEQ/L (3.4-4.9); SODIUM 142 mEQ/L (135-145); TOTAL PROTEIN 7.9 g/dL (6.6-8.7)
[2017-06-21 01:35] LABS: AMORPHOUS SEDIMENT,UR MODERATE /LPF; BACTERIA,URINE OCCASIONAL /HPF; MUCUS,URINE FEW /LPF (NONE/OCC); RBC,URINE 0-2 /HPF (0 - 0); SQUAMOUS EPITHELIAL CELL,UR OCCASIONAL /LPF (NONE/OCC); WBC,URINE 0-2 /HPF (0 - 0)
[2017-06-21] MEDS: D5 1/2NS 1,000 ML IV SCH ×2 (02:23→17:18)
[2017-06-21 06:06] LABS: BASOPHILS % (AUTO) 1.8 % (0.0-2.0); EOSINOPHILS % (AUTO) 1.9 % (0.0-3.0); LYMPHOCYTES % (AUTO) 45.8 % (20.0-45.0); MEAN CORPUSCULAR HEMOGLOBIN 30.5 PG (27.0-31.0); MEAN CORPUSCULAR HGB CONC 33.1 G/DL (32.0-36.0); MEAN CORPUSCULAR VOLUME 92 FL (80-99); MEAN PLATELET VOLUME 6.2 FL (6.5-10.1); MONOCYTES % (AUTO) 5.9 % (1.0-10.0); NEUTROPHILS % (AUTO) 44.5 % (45.0-75.0); PLATELET COUNT 387 K/UL (150-450); RED BLOOD COUNT 5.22 M/UL (4.70-6.10); RED CELL DISTRIBUTION WIDTH 12.5 % (11.6-14.8); WHITE BLOOD COUNT 5.5 K/UL (4.8-10.8)
[2017-06-21 06:21] LABS: ALANINE AMINOTRANSFERASE 23 U/L (3-41); ALBUMIN/GLOBULIN RATIO 1.1 (1.0-2.7); AMYLASE 119 U/L (10-110); ANION GAP 11 (5-15); ASPARTATE AMINO TRANSFERASE 20 U/L (5-40); CALCIUM 9.8 mg/dL (8.6-10.2); CARBON DIOXIDE 28 mEQ/L (20-30); CHLORIDE 102 mEQ/L (98-107); GLOMERULAR FILTRATION RATE > 60 mL/min (>60); HEMOLYSIS 3; LIPASE 83 U/L (< 60); POTASSIUM 4.7 mEQ/L (3.4-4.9); SODIUM 141 mEQ/L (135-145); TOTAL PROTEIN 8.2 g/dL (6.6-8.7)
[2017-06-21] MEDS: Pantoprazole Inj IV SCH (10:41)
[2017-06-21] MEDS: Lisinopril 2.5mg tab GT SCH (10:41)
[2017-06-21] MEDS: Carvedilol 6.25mg Tab GT SCH ×2 (10:43→17:18)
[2017-06-21] MEDS: Heparin 5000 units/ml inj SUBQ SCH ×2 (10:47→20:32)
--- NOTE | 2017-06-21 11:12 | GI Initial Consult Note ---
History of Present Illness General Date patient seen: Jun 21, 2017 Time patient seen: 11:07 Reason for Hospitalization: Malfunctioning Gastric Tube Referring physician: ANIBAL OSORIO Reason for Consultation: G TUBE MALFUNCTION Present Illness HPI 52YOM BIBEMS for ?dislodged Gtube while being bathed at SNF 16g Vizcaino was placed in stoma Was recently replaced here last month SNF and EMS deny other complaints in patient - no vomiting, fever Patient ?aphasic at baseline - not providing additional HPI at this time GI Consult. HPI as noted above. GI consulted for G-tube malfunction. Per ED report, GT was replaced with 18fr and okay for used. ROS limited. Pt seen on floor, awake A&Ox4 NAD with no active s/sx of N/V/D. He presents today with elevated lipase 83. Abdominal U/S pending. Home Meds Active Scripts Tamsulosin HCl (Flomax) 0.4 Mg Cap.er.24h, 0.4 MG ORAL BEDTIME for 30 Days, CAP Prov:ANIBAL WALSH 12/29/16 Metronidazole* (FLAGYL*) 500 Mg Tablet, 500 MG ORAL Q8HR for 5 Days, TAB Prov:ANIBAL WALSH 12/29/16 Levofloxacin* (LEVAQUIN*) 500 Mg Tablet, 500 MG GT Q24H for 5 Days, TAB Prov:ANIBAL WALSH 12/29/16 Reported Medications Acetaminophen* (ACETAMINOPHEN 325MG TABLET*) 325 Mg Tablet, 650 MG GT Q4H Y for Fever/Headache/Mild Pain, TAB 12/25/16 Metoclopramide Hcl* (REGLAN*) 5 Mg Tablet, 5 MG GT EVERY 6 HOURS Y for Nausea & Vomiting, TAB 12/25/16 Lactulose (LACTULOSE*) 20 Gm/30 Ml Solution, 20 ML ORAL DAILY, ML 0 Refills 12/25/16 Na Phos,M-B/Na Phos,Di-Ba (Fleet Enema) 133 Ml Enema, 133 ML RC, EA 12/25/16 Albuterol Sulfate (VENTOLIN HFA) 18 Gm Hfa.aer.ad, 1 PUFF INH EVERY 3 HOURS Y for Shortness of Breath, #18 GM 0 Refills 08/10/16 Cran/Vitc/Mannose/Inulin/Brom (UTI-STAT LIQUID) 3,875 Mg/30 Ml Liquid, 30 ML GT DAILY, ML 08/10/16 Guaifenesin/Dextromethorphan (Robitussin Cough-Chest Dm Liq) 118 Ml Liquid, 10 MG GT Y for For Cough, ML 08/10/16 Esomeprazole Magnesium (NEXIUM) 20 Mg Suspdr.pkt, 20 MG GT DAILY, PKT 08/10/16 Enoxaparin* (LOVENOX*) 40 Mg/0.4 Ml Inj, 40 MG SUBQ DAILY 08/10/16 Lisinopril (LISINOPRIL*) 5 Mg Tablet, 2.5 MG GT DAILY, TAB 08/10/16 Carvedilol (Coreg) 6.25 Mg Tablet, 6.25 MG GT TWICE A DAY, TAB 08/10/16 Baclofen* (BACLOFEN*) 10 Mg Tablet, 10 MG GT THREE TIMES A DAY, TAB 08/10/16 Med list reviewed/reconciled: Yes Allergies: Coded Allergies: No Known Allergies (Unverified , 05/31/16) Patient History PMH Narrative Past Medical History: see triage record, old chart reviewed Past Surgical History: other - Gutbe placement Pertinent Family History: none Social History: Denies: smoking, alcohol use, drug use Immunizations: UTD Hx Cardiac Problems: Yes - Unstable angina, cardiomyopathy, s/p cardiac arrest Hx Hypertension: Yes Hx Cancer: No Hx Neurological Problems: Yes - Hemiplegia, hemiparesis, OA Hx Cerebrovascular Accident: Yes - RIGHT SIDE WEAKNESS Review of Systems All Other Systems: limited Physical Exam Vital Signs Date Time Temp Pulse Resp B/P (MAP) Pulse Ox O2 Delivery O2 Flow Rate FiO2 06/20/17 17:56 98.2 62 20 123/82 99 Room Air Sp02 EP Interpretation: reviewed Labs Laboratory Tests Test 06/21/17 00:00 06/21/17 00:25 06/21/17 04:50 White Blood Count 5.2 K/UL (4.8-10.8) 5.5 K/UL (4.8-10.8) Red Blood Count 5.42 M/UL (4.70-6.10) 5.22 M/UL (4.70-6.10) Hemoglobin 16.7 G/DL (14.2-18.0) 15.9 G/DL (14.2-18.0) Hematocrit 49.3 % (42.0-52.0) 48.1 % (42.0-52.0) Mean Corpuscular Volume 91 FL (80-99) 92 FL (80-99) Mean Corpuscular Hemoglobin 30.8 PG (27.0-31.0) 30.5 PG (27.0-31.0) Mean Corpuscular Hemoglobin Concent 33.8 G/DL (32.0-36.0) 33.1 G/DL (32.0-36.0) Red Cell Distribution Width 12.1 % (11.6-14.8) 12.5 % (11.6-14.8) Platelet Count 370 K/UL (150-450) 387 K/UL (150-450) Mean Platelet Volume 6.1 FL (6.5-10.1) L 6.2 FL (6.5-10.1) L Neutrophils (%) (Auto) 42.6 % (45.0-75.0) L 44.5 % (45.0-75.0) L Lymphocytes (%) (Auto) 45.7 % (20.0-45.0) H 45.8 % (20.0-45.0) H Monocytes (%) (Auto) 7.3 % (1.0-10.0) 5.9 % (1.0-10.0) Eosinophils (%) (Auto) 2.6 % (0.0-3.0) 1.9 % (0.0-3.0) Basophils (%) (Auto) 1.8 % (0.0-2.0) 1.8 % (0.0-2.0) Prothrombin Time 10.6 SEC (9.30-11.50) Prothromb Time International Ratio 1.0 (0.9-1.1) Activated Partial Thromboplast Time 30 SEC (23-33) 31 SEC (23-33) Sodium Level 142 mEQ/L (135-145) 141 mEQ/L (135-145) Potassium Level 4.4 mEQ/L (3.4-4.9) 4.7 mEQ/L (3.4-4.9) Chloride Level 101 mEQ/L (98-107) 102 mEQ/L (98-107) Carbon Dioxide Level 28 mEQ/L (20-30) 28 mEQ/L (20-30) Anion Gap 13 (5-15) 11 (5-15) Blood Urea Nitrogen 15 mg/dL (7-23) 14 mg/dL (7-23) Creatinine 1.0 mg/dL (0.7-1.2) 1.0 mg/dL (0.7-1.2) Estimat Glomerular Filtration Rate > 60 mL/min (>60) > 60 mL/min (>60) Glucose Level 91 mg/dL (74-106) 93 mg/dL (74-106) Calcium Level 10.0 mg/dL (8.6-10.2) 9.8 mg/dL (8.6-10.2) Total Bilirubin 0.5 mg/dL (0.0-1.2) 0.6 mg/dL (0.0-1.2) Aspartate Amino Transf (AST/SGOT) 21 U/L (5-40) 20 U/L (5-40) Alanine Aminotransferase (ALT/SGPT) 23 U/L (3-41) 23 U/L (3-41) Alkaline Phosphatase 88 U/L (40-129) 86 U/L (40-129) Total Creatine Kinase 153 U/L (38-174) Total Protein 7.9 g/dL (6.6-8.7) 8.2 g/dL (6.6-8.7) Albumin 4.4 g/dL (3.5-5.2) 4.4 g/dL (3.5-5.2) Globulin 3.5 g/dL 3.8 g/dL Albumin/Globulin Ratio 1.2 (1.0-2.7) 1.1 (1.0-2.7) Lipase 89 U/L (< 60) H 83 U/L (< 60) H Urine Color Yellow Urine Appearance Clear Urine pH 8 (4.5-8.0) Urine Specific [place] 1.010 (1.005-1.035) Urine Protein 1+ (NEGATIVE) H Urine Glucose (UA) Negative (NEGATIVE) Urine Ketones Negative (NEGATIVE) Urine Occult Blood Negative (NEGATIVE) Urine Nitrite Negative (NEGATIVE) Urine Bilirubin Negative (NEGATIVE) Urine Urobilinogen Normal MG/DL (0.0-1.0) Urine Leukocyte Esterase 1+ (NEGATIVE) H Urine RBC 0-2 /HPF (0 - 0) H Urine WBC 0-2 /HPF (0 - 0) Urine Squamous Epithelial Cells Occasional /LPF Urine Amorphous Sediment Moderate /LPF (NONE) H Urine Bacteria Occasional /HPF (NONE) Urine Mucus Few /LPF (NONE/OCC) H Amylase Level 119 U/L (10-110) H General Appearance: well appearing, no apparent distress, alert Head: normocephalic EENT: normal ENT inspection Neck: supple Respiratory: no respiratory distress Cardiovascular: normal rate Gastrointestinal: distended, gt - c/d/i Rectal: deferred Neurologic: alert Skin: normal inspection, normal color, no rash, warm/dry, palpation normal Lymphatic: normal inspection, no adenopathy Current Medications Current Medications Medications (Trade) Dose Ordered Sig/Danita Route PRN Reason Start Time Stop Time Status Last Admin Dose Admin Acetaminophen (Tylenol) 650 mg Q4H PRN ORAL fever 06/20/17 23:30 07/20/17 23:29 Al Hydroxide/Mg Hydroxide (Mylanta II) 30 ml Q6H PRN ORAL dyspepsia 06/20/17 23:30 07/20/17 23:29 Carvedilol (Coreg) 6.25 mg TWICE A DAY GT 06/21/17 09:00 07/21/17 08:59 06/21/17 10:43 Dextrose (Dextrose 50%) STAT PRN IV Hypoglycemia 06/20/17 23:30 07/20/17 23:29 Dextrose/Sodium Chloride 1,000 ml @ 75 mls/hr [id number] IV 06/21/17 02:00 07/21/17 01:59 06/21/17 02:23 Diphenhydramine HCl (Benadryl) 25 mg Q6H PRN ORAL Itching/Pruritis 06/20/17 23:30 07/20/17 23:29 UNV Heparin Sodium (Porcine) (Heparin 5000 units/ml) 5,000 units EVERY 12 HOURS SUBQ 06/21/17 09:00 07/21/17 08:59 06/21/17 10:47 Lisinopril (Zestril) 2.5 mg DAILY GT 06/21/17 09:00 07/21/17 08:59 06/21/17 10:41 Lorazepam (Ativan 2mg/ml 1ml) 1 mg Q4H PRN IV agitation 9/24/17 23:30 06/27/17 23:29 Metoclopramide HCl (Reglan) 10 mg Q6H PRN IVP servere [place] 06/20/17 23:30 07/20/17 23:29 Morphine Sulfate (Morphine Sulfate) 2 mg Q4H PRN IVP severe Pain (Pain Scale 7-10) 06/20/17 23:30 06/27/17 23:29 Nitroglycerin (Ntg) 0.4 mg Q5M X 3 DOSES PRN SL Prn Chest Pain 06/20/17 23:30 07/20/17 23:29 Ondansetron HCl (Zofran) 4 mg Q6H PRN IVP Nausea & Vomiting 06/20/17 23:30 07/20/17 23:29 Pantoprazole (Protonix) 40 mg DAILY IV 06/21/17 09:00 07/21/17 08:59 06/21/17 10:41 Polyethylene Glycol (Miralax) 17 gm HSPRN PRN ORAL Constipation 06/20/17 23:30 07/20/17 23:29 Promethazine HCl (Phenergan) 25 mg EVERY 8 HOURS PRN IV refractory nausea 06/20/17 23:30 07/20/17 23:29 UNV Tamsulosin HCl (Flomax) 0.4 mg BEDTIME ORAL 06/21/17 21:00 07/21/17 20:59 UNV Temazepam (Restoril) 15 mg HSPRN PRN ORAL Insomnia 06/20/17 23:30 06/27/17 23:29 UNV GI: Plan Problems: (1) Malfunction of gastrostomy tube (2) PEG (percutaneous endoscopic gastrostomy) adjustment/replacement/removal (3) Status post CVA (4) Pancreatitis Plan elevated lipase 18 fr GT replaced in ED, location of GT unknown will order CT AP to verify location supportive care hold GTFs, start IVFs GT site care daily/prn fu abdominal U/S repeat lipase cont ppi fu labs Discussed with Dr. Gillis. Thank you for referring this patient, we will follow. Leydi Black N.P. Jun 21, 2017 11:12
[2017-06-21] MEDS ORDERED: Acetaminophen 650mg/20.3ml GT PRN (12:15)
[2017-06-21] MEDS ORDERED: Mylanta II UD 30ml GT PRN (12:15)
[2017-06-21] MEDS ORDERED: DiphenhydrAMINE 25mg/10ml Elixir GT PRN (12:15)
[2017-06-21] MEDS ORDERED: Miralax 17gm pkt GT PRN (12:15)
--- NOTE | 2017-06-21 12:43 | Diagnostic Imaging Report ---
Indication: Status post gastrostomy replacement Technique: Supine view of the abdomen after injection of water-soluble contrast into gastrostomy Comparison: 05/23/2017 Findings: Exam was delayed after contrast injection, due to patient being uncooperative, per technologist. Therefore, most of the injected contrast is within small bowel. Crescentic areas of contrast in the epigastrium and right lower quadrant extend beyond the imaging volume and are therefore presumably spelled contrast on the bed sheets.. No definite contrast extravasation is demonstrated. The bowel gas pattern is unremarkable. Impression: Inconclusive but likely satisfactory position of gastrostomy tube
--- NOTE | 2017-06-21 14:35 | Diagnostic Imaging Report ---
Indication: Epigastric pain, abnormal amylase and lipase Technique: Chacon-scale and duplex images of the upper abdomen were obtained Comparison: 12/28/2016 Findings: Gallbladder is unremarkable, without stones, wall thickening, nor pericholecystic fluid. Sonographic Oneill's sign is negative. Common bile duct measures 4 mm in diameter. No intrahepatic biliary ductal dilatation. Liver demonstrates normal echogenicity, no focal abnormality. Portal vein and hepatic veins are patent. Pancreas is incompletely visualized due to overlying bowel gas, visualized portions are unremarkable. Spleen is unremarkable. Left kidney measures 9 cm in length. Right kidney measures 9 cm length. Both kidneys demonstrate normal echogenicity. There is no hydronephrosis. No focal abnormality . Non-aneurysmal abdominal aorta . No significant change Impression: Essentially unremarkable exam. Negative for gallstones or dilated ducts Note inability to visualize portions of the pancreatic tail
--- NOTE | 2017-06-21 14:52 | History and Physical ---
History of Present Illness General Date patient seen: Jun 20, 2017 Reason for Hospitalization: Malfunctioning Gastric Tube Present Illness HPI 52 year old male with hx of Gtube feeding, Old trach, removed now, brought in from nursing since his Gtube fell off. Another feeding tube was placed in ER, but apparently the tube was in small intestine. Pt is admitted for further evaluation. Allergies: Coded Allergies: No Known Allergies (Unverified , 05/31/16) Medication History Scheduled Baclofen* (Baclofen*), 10 MG GT THREE TIMES A DAY, (Reported) Carvedilol (Coreg), 6.25 MG GT TWICE A DAY, (Reported) Cran/Vitc/Mannose/Inulin/Brom (Uti-Stat Liquid), 30 ML GT DAILY, (Reported) Enoxaparin* (Lovenox*), 40 MG SUBQ DAILY, (Reported) Esomeprazole Magnesium (Nexium), 20 MG GT DAILY, (Reported) Lactulose (Lactulose*), 20 ML ORAL DAILY, (Reported) Levofloxacin* (Levaquin*), 500 MG GT Q24H Lisinopril (Lisinopril*), 2.5 MG GT DAILY, (Reported) Metronidazole* (Flagyl*), 500 MG ORAL Q8HR Tamsulosin HCl (Flomax), 0.4 MG ORAL BEDTIME Scheduled PRN Acetaminophen* (Acetaminophen 325MG Tablet*), 650 MG GT Q4H PRN for Fever/ Headache/Mild Pain, (Reported) Albuterol Sulfate (Ventolin Hfa), 1 PUFF INH EVERY 3 HOURS PRN for Shortness of Breath, (Reported) Guaifenesin/Dextromethorphan (Robitussin Cough-Chest Dm Liq), 10 MG GT for For Cough, (Reported) Metoclopramide Hcl* (Reglan*), 5 MG GT EVERY 6 HOURS PRN for Nausea & Vomiting, (Reported) Miscellaneous Medications Na Phos,M-B/Na Phos,Di-Ba (Fleet Enema), 133 ML RC, (Reported) Patient History Healthcare decision maker Resuscitation status Advanced Directive on File Past Medical/Surgical History Past Medical/Surgical History: (1) Status post CVA (2) Anoxic brain damage syndrome (3) 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 Review of Systems All Other Systems: negative except mentioned in HPI Physical Exam General Appearance: WD/WN, alert Lines, tubes and drains: peripheral, PICC HEENT: normocephalic, atraumatic Neck: non-tender, normal alignment Respiratory/Chest: chest wall non-tender, lungs clear Cardiovascular/Chest: normal peripheral pulses, regular rhythm Abdomen: normal bowel sounds, non tender Genitourinary/Rectal: normal genital exam, heme negative stool Last 24 Hour Vital Signs Date Time Temp Pulse Resp B/P (MAP) Pulse Ox O2 Delivery O2 Flow Rate FiO2 06/21/17 12:00 97.7 56 19 109/68 95 Room Air 06/21/17 10:43 55 117/84 06/21/17 10:41 117/84 06/21/17 08:00 97.2 49 19 117/84 98 Room Air 06/21/17 04:48 97.7 60 18 128/86 100 Room Air 06/21/17 01:35 97.7 62 18 124/81 100 Room Air 06/21/17 01:20 98.2 74 18 111/72 100 Room Air 06/21/17 01:00 98.2 74 18 111/72 100 Room Air 06/20/17 21:40 98.1 70 17 130/74 99 Room Air 06/20/17 19:32 98.2 68 16 122/75 100 Room Air 06/20/17 18:49 98.1 65 19 127/84 98 Room Air 06/20/17 17:56 98.2 62 20 123/82 99 Room Air Intake and Output 06/21/17 06/22/17 19:00 07:00 # Bowel Movements 1 Laboratory Tests Test 06/21/17 00:00 06/21/17 00:25 06/21/17 04:50 White Blood Count 5.2 K/UL (4.8-10.8) 5.5 K/UL (4.8-10.8) Red Blood Count 5.42 M/UL (4.70-6.10) 5.22 M/UL (4.70-6.10) Hemoglobin 16.7 G/DL (14.2-18.0) 15.9 G/DL (14.2-18.0) Hematocrit 49.3 % (42.0-52.0) 48.1 % (42.0-52.0) Mean Corpuscular Volume 91 FL (80-99) 92 FL (80-99) Mean Corpuscular Hemoglobin 30.8 PG (27.0-31.0) 30.5 PG (27.0-31.0) Mean Corpuscular Hemoglobin Concent 33.8 G/DL (32.0-36.0) 33.1 G/DL (32.0-36.0) Red Cell Distribution Width 12.1 % (11.6-14.8) 12.5 % (11.6-14.8) Platelet Count 370 K/UL (150-450) 387 K/UL (150-450) Mean Platelet Volume 6.1 FL (6.5-10.1) L 6.2 FL (6.5-10.1) L Neutrophils (%) (Auto) 42.6 % (45.0-75.0) L 44.5 % (45.0-75.0) L Lymphocytes (%) (Auto) 45.7 % (20.0-45.0) H 45.8 % (20.0-45.0) H Monocytes (%) (Auto) 7.3 % (1.0-10.0) 5.9 % (1.0-10.0) Eosinophils (%) (Auto) 2.6 % (0.0-3.0) 1.9 % (0.0-3.0) Basophils (%) (Auto) 1.8 % (0.0-2.0) 1.8 % (0.0-2.0) Prothrombin Time 10.6 SEC (9.30-11.50) Prothromb Time International Ratio 1.0 (0.9-1.1) Activated Partial Thromboplast Time 30 SEC (23-33) 31 SEC (23-33) Sodium Level 142 mEQ/L (135-145) 141 mEQ/L (135-145) Potassium Level 4.4 mEQ/L (3.4-4.9) 4.7 mEQ/L (3.4-4.9) Chloride Level 101 mEQ/L (98-107) 102 mEQ/L (98-107) Carbon Dioxide Level 28 mEQ/L (20-30) 28 mEQ/L (20-30) Anion Gap 13 (5-15) 11 (5-15) Blood Urea Nitrogen 15 mg/dL (7-23) 14 mg/dL (7-23) Creatinine 1.0 mg/dL (0.7-1.2) 1.0 mg/dL (0.7-1.2) Estimat Glomerular Filtration Rate > 60 mL/min (>60) > 60 mL/min (>60) Glucose Level 91 mg/dL (74-106) 93 mg/dL (74-106) Calcium Level 10.0 mg/dL (8.6-10.2) 9.8 mg/dL (8.6-10.2) Total Bilirubin 0.5 mg/dL (0.0-1.2) 0.6 mg/dL (0.0-1.2) Aspartate Amino Transf (AST/SGOT) 21 U/L (5-40) 20 U/L (5-40) Alanine Aminotransferase (ALT/SGPT) 23 U/L (3-41) 23 U/L (3-41) Alkaline Phosphatase 88 U/L (40-129) 86 U/L (40-129) Total Creatine Kinase 153 U/L (38-174) Total Protein 7.9 g/dL (6.6-8.7) 8.2 g/dL (6.6-8.7) Albumin 4.4 g/dL (3.5-5.2) 4.4 g/dL (3.5-5.2) Globulin 3.5 g/dL 3.8 g/dL Albumin/Globulin Ratio 1.2 (1.0-2.7) 1.1 (1.0-2.7) Lipase 89 U/L (< 60) H 83 U/L (< 60) H Urine Color Yellow Urine Appearance Clear Urine pH 8 (4.5-8.0) Urine Specific [place] 1.010 (1.005-1.035) Urine Protein 1+ (NEGATIVE) H Urine Glucose (UA) Negative (NEGATIVE) Urine Ketones Negative (NEGATIVE) Urine Occult Blood Negative (NEGATIVE) Urine Nitrite Negative (NEGATIVE) Urine Bilirubin Negative (NEGATIVE) Urine Urobilinogen Normal MG/DL (0.0-1.0) Urine Leukocyte Esterase 1+ (NEGATIVE) H Urine RBC 0-2 /HPF (0 - 0) H Urine WBC 0-2 /HPF (0 - 0) Urine Squamous Epithelial Cells Occasional /LPF Urine Amorphous Sediment Moderate /LPF (NONE) H Urine Bacteria Occasional /HPF (NONE) Urine Mucus Few /LPF (NONE/OCC) H Amylase Level 119 U/L (10-110) H Height (Feet): 5 Height (Inches): 9.00 Weight (Pounds): 170 Medications Current Medications Medications (Trade) Dose Ordered Sig/Danita Route PRN Reason Start Time Stop Time Status Last Admin Dose Admin Acetaminophen (Tylenol) 650 mg Q4H PRN GT fever>100.5 06/21/17 12:15 07/21/17 12:14 Al Hydroxide/Mg Hydroxide (Mylanta II) 30 ml Q6H PRN GT dyspepsia 06/21/17 12:15 07/20/17 23:29 Carvedilol (Coreg) 6.25 mg TWICE A DAY GT 06/21/17 09:00 07/21/17 08:59 06/21/17 10:43 Dextrose (Dextrose 50%) STAT PRN IV Hypoglycemia 06/20/17 23:30 07/20/17 23:29 Dextrose/Sodium Chloride 1,000 ml @ 75 mls/hr [id number] IV 06/21/17 02:00 07/21/17 01:59 06/21/17 02:23 Diphenhydramine HCl (Benadryl) 25 mg Q6H PRN GT Itching/Pruritis 06/21/17 12:15 07/21/17 12:14 Heparin Sodium (Porcine) (Heparin 5000 units/ml) 5,000 units EVERY 12 HOURS SUBQ 06/21/17 09:00 07/21/17 08:59 06/21/17 10:47 Lisinopril (Zestril) 2.5 mg DAILY GT 06/21/17 09:00 07/21/17 08:59 06/21/17 10:41 Lorazepam (Ativan 2mg/ml 1ml) 1 mg Q4H PRN IV agitation 06/20/17 23:30 06/27/17 23:29 Metoclopramide HCl (Reglan) 10 mg Q6H PRN IVP servere [place] 06/20/17 23:30 07/20/17 23:29 Morphine Sulfate (Morphine Sulfate) 2 mg Q4H PRN IVP severe Pain (Pain Scale 7-10) 06/20/17 23:30 06/27/17 23:29 Nitroglycerin (Ntg) 0.4 mg Q5M X 3 DOSES PRN SL Prn Chest Pain 06/20/17 23:30 07/20/17 23:29 Ondansetron HCl (Zofran) 4 mg Q6H PRN IVP Nausea & Vomiting 06/20/17 23:30 07/20/17 23:29 Pantoprazole (Protonix) 40 mg DAILY IV 06/21/17 09:00 07/21/17 08:59 06/21/17 10:41 Polyethylene Glycol (Miralax) 17 gm HSPRN PRN GT Constipation 06/21/17 12:15 07/20/17 23:29 Promethazine HCl (Phenergan) 25 mg EVERY 8 HOURS PRN IV refractory nausea 06/20/17 23:30 07/20/17 23:29 UNV Tamsulosin HCl (Flomax) 0.4 mg BEDTIME ORAL 06/21/17 21:00 07/21/17 20:59 UNV Temazepam (Restoril) 15 mg HSPRN PRN GT Insomnia 06/21/17 21:00 06/28/17 20:59 Assessment/Plan Problem List: (1) Malfunction of gastrostomy tube ICD Codes: K94.23 - Gastrostomy malfunction SNOMED: 114538302 (2) History of CVA (cerebrovascular accident) ICD Codes: Z86.73 - Personal history of transient ischemic attack (TIA), and cerebral infarction without residual deficits SNOMED: 882164840 (3) Anoxic brain damage syndrome ICD Codes: G93.1 - Anoxic brain damage, not elsewhere classified SNOMED: 434468915 Assessment/Plan npo IV fluids check electrolytes GI evaluation dvt prophylaxis. ANIBAL WALSH Jun 21, 2017 14:52
--- NOTE | 2017-06-21 14:54 | Pulmonology Progress Note ---
Assessment/Plan Problems: (1) Malfunction of gastrostomy tube (2) History of CVA (cerebrovascular accident) (3) Anoxic brain damage syndrome Assessment/Plan awaiting GI evaluation check electrolytes f/u lipase levels ( doubt pancreatitis) Subjective ROS Limited/Unobtainable: Yes Interval Events: pt is awake, understands, nodds yes or no as answers Allergies: Coded Allergies: No Known Allergies (Unverified , 05/31/16) Objective Last 24 Hour Vital Signs Date Time Temp Pulse Resp B/P (MAP) Pulse Ox O2 Delivery O2 Flow Rate FiO2 06/21/17 12:00 97.7 56 19 109/68 95 Room Air 06/21/17 10:43 55 117/84 06/21/17 10:41 117/84 06/21/17 08:00 97.2 49 19 117/84 98 Room Air 06/21/17 04:48 97.7 60 18 128/86 100 Room Air 06/21/17 01:35 97.7 62 18 124/81 100 Room Air 06/21/17 01:20 98.2 74 18 111/72 100 Room Air 06/21/17 01:00 98.2 74 18 111/72 100 Room Air 06/20/17 21:40 98.1 70 17 130/74 99 Room Air 06/20/17 19:32 98.2 68 16 122/75 100 Room Air 06/20/17 18:49 98.1 65 19 127/84 98 Room Air 06/20/17 17:56 98.2 62 20 123/82 99 Room Air Intake and Output 06/21/17 06/22/17 19:00 07:00 # Bowel Movements 1 General Appearance: WD/WN HEENT: normocephalic, atraumatic Respiratory/Chest: chest wall non-tender, lungs clear Cardiovascular: normal peripheral pulses, normal rate Abdomen: normal bowel sounds, soft, non tender Extremities: no cyanosis Skin: no lesions Laboratory Tests 06/21/17 00:00: White Blood Count 5.2, Red Blood Count 5.42, Hemoglobin 16.7, Hematocrit 49.3, Mean Corpuscular Volume 91, Mean Corpuscular Hemoglobin 30.8, Mean Corpuscular Hemoglobin Concent 33.8, Red Cell Distribution Width 12.1, Platelet Count 370, Mean Platelet Volume 6.1L, Neutrophils (%) (Auto) 42.6L, Lymphocytes (%) (Auto) 45.7H, Monocytes (%) (Auto) 7.3, Eosinophils (%) (Auto) 2.6, Basophils (%) (Auto ) 1.8, Prothrombin Time 10.6, Prothromb Time International Ratio 1.0, Activated Partial Thromboplast Time 30, Sodium Level 142, Potassium Level 4.4, Chloride Level 101, Carbon Dioxide Level 28, Anion Gap 13, Blood Urea Nitrogen 15, Creatinine 1.0, Estimat Glomerular Filtration Rate > 60, Glucose Level 91, Calcium Level 10.0, Total Bilirubin 0.5, Aspartate Amino Transf (AST/SGOT) 21, Alanine Aminotransferase (ALT/SGPT) 23, Alkaline Phosphatase 88, Total Creatine Kinase 153, Total Protein 7.9, Albumin 4.4, Globulin 3.5, Albumin/Globulin Ratio 1.2, Lipase 89H 06/21/17 00:25: Urine Color Yellow, Urine Appearance Clear, Urine pH 8, Urine Specific [place] 1.010, Urine Protein 1+H, Urine Glucose (UA) Negative, Urine Ketones Negative, Urine Occult Blood Negative, Urine Nitrite Negative, Urine Bilirubin Negative, Urine Urobilinogen Normal, Urine Leukocyte Esterase 1+H, Urine RBC 0-2H, Urine WBC 0-2, Urine Squamous Epithelial Cells Occasional, Urine Amorphous Sediment ModerateH, Urine Bacteria Occasional, Urine Mucus FewH 06/21/17 04:50: White Blood Count 5.5, Red Blood Count 5.22, Hemoglobin 15.9, Hematocrit 48.1, Mean Corpuscular Volume 92, Mean Corpuscular Hemoglobin 30.5, Mean Corpuscular Hemoglobin Concent 33.1, Red Cell Distribution Width 12.5, Platelet Count 387, Mean Platelet Volume 6.2L, Neutrophils (%) (Auto) 44.5L, Lymphocytes (%) (Auto) 45.8H, Monocytes (%) (Auto) 5.9, Eosinophils (%) (Auto) 1.9, Basophils (%) (Auto ) 1.8, Activated Partial Thromboplast Time 31, Sodium Level 141, Potassium Level 4.7, Chloride Level 102, Carbon Dioxide Level 28, Anion Gap 11, Blood Urea Nitrogen 14, Creatinine 1.0, Estimat Glomerular Filtration Rate > 60, Glucose Level 93, Calcium Level 9.8, Total Bilirubin 0.6, Aspartate Amino Transf (AST/SGOT) 20, Alanine Aminotransferase (ALT/SGPT) 23, Alkaline Phosphatase 86, Total Protein 8.2, Albumin 4.4, Globulin 3.8, Albumin/Globulin Ratio 1.1, Lipase 83H, Amylase Level 119H Current Medications Medications (Trade) Dose Ordered Sig/Danita Route PRN Reason Start Time Stop Time Status Last Admin Dose Admin Acetaminophen (Tylenol) 650 mg Q4H PRN GT fever>100.5 06/21/17 12:15 07/21/17 12:14 Al Hydroxide/Mg Hydroxide (Mylanta II) 30 ml Q6H PRN GT dyspepsia 06/21/17 12:15 07/20/17 23:29 Carvedilol (Coreg) 6.25 mg TWICE A DAY GT 06/21/17 09:00 07/21/17 08:59 06/21/17 10:43 Dextrose (Dextrose 50%) STAT PRN IV Hypoglycemia 06/20/17 23:30 07/20/17 23:29 Dextrose/Sodium Chloride 1,000 ml @ 75 mls/hr [id number] IV 06/21/17 02:00 07/21/17 01:59 06/21/17 02:23 Diphenhydramine HCl (Benadryl) 25 mg Q6H PRN GT Itching/Pruritis 06/21/17 12:15 07/21/17 12:14 Heparin Sodium (Porcine) (Heparin 5000 units/ml) 5,000 units EVERY 12 HOURS SUBQ 06/21/17 09:00 07/21/17 08:59 06/21/17 10:47 Lisinopril (Zestril) 2.5 mg DAILY GT 06/21/17 09:00 07/21/17 08:59 06/21/17 10:41 Lorazepam (Ativan 2mg/ml 1ml) 1 mg Q4H PRN IV agitation 06/20/17 23:30 06/27/17 23:29 Metoclopramide HCl (Reglan) 10 mg Q6H PRN IVP servere nauasea 06/20/17 23:30 07/20/17 23:29 Morphine Sulfate (Morphine Sulfate) 2 mg Q4H PRN IVP severe Pain (Pain Scale 7-10) 06/20/17 23:30 06/27/17 23:29 Nitroglycerin (Ntg) 0.4 mg Q5M X 3 DOSES PRN SL Prn Chest Pain 06/20/17 23:30 07/20/17 23:29 Ondansetron HCl (Zofran) 4 mg Q6H PRN IVP Nausea & Vomiting 06/20/17 23:30 07/20/17 23:29 Pantoprazole (Protonix) 40 mg DAILY IV 06/21/17 09:00 07/21/17 08:59 06/21/17 10:41 Polyethylene Glycol (Miralax) 17 gm HSPRN PRN GT Constipation 06/21/17 12:15 07/20/17 23:29 Promethazine HCl (Phenergan) 25 mg EVERY 8 HOURS PRN IV refractory nausea 06/20/17 23:30 07/20/17 23:29 UNV Tamsulosin HCl (Flomax) 0.4 mg BEDTIME ORAL 06/21/17 21:00 07/21/17 20:59 UNV Temazepam (Restoril) 15 mg HSPRN PRN GT Insomnia 06/21/17 21:00 06/28/17 20:59 ANIBAL WALSH Jun 21, 2017 14:54
--- NOTE | 2017-06-21 15:04 | Diagnostic Imaging Report ---
Indication: Evaluation of feeding placement Technique: Single view of the abdomen taken after injection of water-soluble contrast into enteric feeding tube Comparison: 30 minutes earlier Findings: Contrast opacifies enteric feeding tube, with dense contrast within the jejunum, tip in the left upper quadrant, presumably within the jejunum. No contrast extravasation is demonstrated Impression: Apparent satisfactory position of what appears to be a jejunostomy catheter This agrees with the preliminary interpretation provided overnight by [facility] service.
--- NOTE | 2017-06-21 15:12 | Diagnostic Imaging Report ---
Indication: Status post placement of enteric feeding tube Technique: Single one view abdomen taken after injection of 30 mL of Gastrografin into enteric feeding tube Comparison: 1-1/2 hours earlier Findings: New feeding tube appears to slight retrograde within the distal duodenum, balloon appearing to be inflated within the distal duodenum. Contrast opacifies the proximal jejunum Impression: Status post replacement of what is apparently a jejunostomy, now pointing retrograde into the duodenum This agrees with the preliminary interpretation provided overnight by [facility] service.
[2017-06-21] MEDS ORDERED: Tamsulosin 0.4mg cap ORAL SCH (21:00)
[2017-06-21] MEDS ORDERED: Fleet's Mineral Oil Enema RECTAL ONE (21:00)
[2017-06-22] VITALS: BP 120/79
[2017-06-22 04:00] VITALS: BP 124/78
[2017-06-22] MEDS: D5 1/2NS 1,000 ML IV SCH (04:40)
[2017-06-22 08:00] VITALS: BP 124/81
[2017-06-22 09:06] LABS: BASOPHILS % (AUTO) 1.5 % (0.0-2.0); EOSINOPHILS % (AUTO) 3.1 % (0.0-3.0); LYMPHOCYTES % (AUTO) 42.7 % (20.0-45.0); MEAN CORPUSCULAR HGB CONC 34.4 G/DL (32.0-36.0); MEAN CORPUSCULAR VOLUME 90 FL (80-99); MEAN PLATELET VOLUME 6.6 FL (6.5-10.1); MONOCYTES % (AUTO) 8.2 % (1.0-10.0); NEUTROPHILS % (AUTO) 44.5 % (45.0-75.0); PLATELET COUNT 349 K/UL (150-450); RED BLOOD COUNT 4.78 M/UL (4.70-6.10); RED CELL DISTRIBUTION WIDTH 11.9 % (11.6-14.8); WHITE BLOOD COUNT 4.4 K/UL (4.8-10.8)
[2017-06-22] MEDS: Lisinopril 2.5mg tab GT SCH (09:17)
[2017-06-22] MEDS: Pantoprazole Inj IV SCH (09:18)
[2017-06-22] MEDS: Carvedilol 6.25mg Tab GT SCH (09:18)
[2017-06-22 09:19] LABS: ANION GAP 14 (5-15); CALCIUM 9.4 mg/dL (8.6-10.2); CARBON DIOXIDE 22 mEQ/L (20-30); CHLORIDE 104 mEQ/L (98-107); CREATININE 0.8 mg/dL (0.7-1.2); GLOMERULAR FILTRATION RATE > 60 mL/min (>60); HEMOLYSIS 3; LIPASE 93 U/L (< 60); POTASSIUM 4.3 mEQ/L (3.4-4.9); SODIUM 140 mEQ/L (135-145)
[2017-06-22] MEDS: Heparin 5000 units/ml inj SUBQ SCH (09:19)
--- NOTE | 2017-06-22 09:53 | Diagnostic Imaging Report ---
Indication: Abdominal pain Technique: Continuous helical transaxial imaging of the abdomen and pelvis was obtained from the lung bases to the pubic symphysis during intravenous contrast administration. Coronal 2-D reformats were also obtained. Study obtained in a Siemens sensation [address] Total Dose length Product (DLP): [address] Dose Index Volume (CTDIvol): 18.84, 0.15 mGy Comparison: None Findings: Linear reticular densities are demonstrated at the lung bases likely atelectasis. Trace pericardial effusion noted. Gallbladder is unremarkable. There is a gastrostomy which appears to be in good position. Normal appendix noted. Moderate to severe fecal retention within the sigmoid and rectum. Vizcaino catheter noted in good position. Impression: Fecal impaction. Basilar atelectasis Trace pericardial effusion Vizcaino catheter and gastrostomy tubes noted Normal appendix The CT scanner at [facility] is accredited by the [employer] and the scans are performed using dose optimization techniques as appropriate to a performed exam including Automatic Exposure control.
[2017-06-22 12:00] VITALS: BP 115/75
--- NOTE | 2017-06-22 14:46 | GI Progress Note ---
Assessment/Plan Problems: (1) Fecal impaction ICD Codes: K56.41 - Fecal impaction SNOMED: 09186695 (2) Malfunction of gastrostomy tube ICD Codes: K94.23 - Gastrostomy malfunction SNOMED: 094006995 Status: stable Status Narrative Discussed with Dr. Gillis. Assessment/Plan elevated lipase 18 fr GT replaced in ED, location of GT unknown CT AP reviewed >> GT ok. Fecal impaction abdominal U/S reviewed >> unremarkable supportive care okay to GTFs GT site care daily/prn bowel regime >> Miralax, Colace, Lactulose ATC, will add mineral oil x 1 repeat lipase cont ppi fu labs Subjective Subjective constipated Objective Last 24 Hour Vital Signs Date Time Temp Pulse Resp B/P (MAP) Pulse Ox O2 Delivery O2 Flow Rate FiO2 06/22/17 12:00 98.1 70 19 115/75 97 Room Air 06/22/17 09:18 61 124/81 06/22/17 09:17 124/81 06/22/17 08:00 98.6 61 18 124/81 98 Room Air 06/22/17 04:00 99.2 68 17 124/78 97 Room Air 06/22/17 00:00 97.4 75 17 120/79 97 Room Air 06/21/17 20:00 98.0 80 19 109/74 99 Room Air 06/21/17 17:18 58 112/68 06/21/17 16:00 97.9 58 19 112/68 99 Room Air Intake and Output 06/22/17 06/23/17 19:00 07:00 Intake Total 450 ml Balance 450 ml IV Total 450 ml # Bowel Movements 1 Laboratory Tests Test 06/22/17 08:45 White Blood Count 4.4 K/UL (4.8-10.8) L Red Blood Count 4.78 M/UL (4.70-6.10) Hemoglobin 14.8 G/DL (14.2-18.0) Hematocrit 43.1 % (42.0-52.0) Mean Corpuscular Volume 90 FL (80-99) Mean Corpuscular Hemoglobin 31.0 PG (27.0-31.0) Mean Corpuscular Hemoglobin Concent 34.4 G/DL (32.0-36.0) Red Cell Distribution Width 11.9 % (11.6-14.8) Platelet Count 349 K/UL (150-450) Mean Platelet Volume 6.6 FL (6.5-10.1) Neutrophils (%) (Auto) 44.5 % (45.0-75.0) L Lymphocytes (%) (Auto) 42.7 % (20.0-45.0) Monocytes (%) (Auto) 8.2 % (1.0-10.0) Eosinophils (%) (Auto) 3.1 % (0.0-3.0) H Basophils (%) (Auto) 1.5 % (0.0-2.0) Sodium Level 140 mEQ/L (135-145) Potassium Level 4.3 mEQ/L (3.4-4.9) Chloride Level 104 mEQ/L (98-107) Carbon Dioxide Level 22 mEQ/L (20-30) Anion Gap 14 (5-15) Blood Urea Nitrogen 12 mg/dL (7-23) Creatinine 0.8 mg/dL (0.7-1.2) Estimat Glomerular Filtration Rate > 60 mL/min (>60) Glucose Level 95 mg/dL (74-106) Calcium Level 9.4 mg/dL (8.6-10.2) Lipase 93 U/L (< 60) H Height (Feet): 5 Height (Inches): 9.00 Weight (Pounds): 170 General Appearance: no apparent distress, alert Cardiovascular: normal rate Respiratory/Chest: normal breath sounds Abdominal Exam: soft Leydi Black N.P. Jun 22, 2017 14:46
[2017-06-22] MEDS ORDERED: Mineral Oil 30ml ud GT ONE (17:00)
--- NOTE | 2017-06-22 17:02 | Pulmonology Progress Note ---
Assessment/Plan Problems: (1) Malfunction of gastrostomy tube (2) History of CVA (cerebrovascular accident) (3) Anoxic brain damage syndrome Assessment/Plan awaiting GI evaluation check electrolytes f/u lipase levels ( doubt pancreatitis)\ all reviewed. Subjective ROS Limited/Unobtainable: No Constitutional: Reports: no symptoms HEENT: Repors: no symptoms Respiratory: Reports: no symptoms Cardiovascular: Reports: no symptoms Gastrointestinal/Abdominal: Reports: no symptoms Genitourinary: Reports: no symptoms Allergies: Coded Allergies: No Known Allergies (Unverified , 05/31/16) Objective Last 24 Hour Vital Signs Date Time Temp Pulse Resp B/P (MAP) Pulse Ox O2 Delivery O2 Flow Rate FiO2 06/22/17 12:00 98.1 70 19 115/75 97 Room Air 06/22/17 09:18 61 124/81 06/22/17 09:17 124/81 06/22/17 08:00 98.6 61 18 124/81 98 Room Air 06/22/17 04:00 99.2 68 17 124/78 97 Room Air 06/22/17 00:00 97.4 75 17 120/79 97 Room Air 06/21/17 20:00 98.0 80 19 109/74 99 Room Air 06/21/17 17:18 58 112/68 Intake and Output 06/22/17 06/23/17 19:00 07:00 Intake Total 450 ml Balance 450 ml IV Total 450 ml # Bowel Movements 1 General Appearance: WD/WN HEENT: normocephalic, mucous membranes moist Respiratory/Chest: chest wall non-tender, normal breath sounds Cardiovascular: normal peripheral pulses, normal rate Abdomen: normal bowel sounds, soft, non tender Extremities: no cyanosis Neurologic/Psychiatric: helper maintenance cleaning II-XII grossly normal, no motor/sensory deficits Laboratory Tests 06/22/17 08:45: White Blood Count 4.4L, Red Blood Count 4.78, Hemoglobin 14.8, Hematocrit 43.1, Mean Corpuscular Volume 90, Mean Corpuscular Hemoglobin 31.0, Mean Corpuscular Hemoglobin Concent 34.4, Red Cell Distribution Width 11.9, Platelet Count 349, Mean Platelet Volume 6.6, Neutrophils (%) (Auto) 44.5L, Lymphocytes (%) (Auto) 42.7, Monocytes (%) (Auto) 8.2, Eosinophils (%) (Auto) 3.1H, Basophils (%) (Auto ) 1.5, Sodium Level 140, Potassium Level 4.3, Chloride Level 104, Carbon Dioxide Level 22, Anion Gap 14, Blood Urea Nitrogen 12, Creatinine 0.8, Estimat Glomerular Filtration Rate > 60, Glucose Level 95, Calcium Level 9.4, Lipase 93H Current Medications Medications (Trade) Dose Ordered Sig/Danita Route PRN Reason Start Time Stop Time Status Last Admin Dose Admin Acetaminophen (Tylenol) 650 mg Q4H PRN GT fever>100.5 06/21/17 12:15 07/21/17 12:14 Al Hydroxide/Mg Hydroxide (Mylanta II) 30 ml Q6H PRN GT dyspepsia 06/21/17 12:15 07/20/17 23:29 Carvedilol (Coreg) 6.25 mg TWICE A DAY GT 06/21/17 09:00 07/21/17 08:59 06/22/17 09:18 Dextrose (Dextrose 50%) STAT PRN IV Hypoglycemia 06/20/17 23:30 07/20/17 23:29 Dextrose/Sodium Chloride 1,000 ml @ 75 mls/hr [id number] IV 06/21/17 02:00 07/21/17 01:59 06/22/17 04:40 Diphenhydramine HCl (Benadryl) 25 mg Q6H PRN GT Itching/Pruritis 06/21/17 12:15 07/21/17 12:14 Docusate Sodium (Colace) 100 mg TWICE A DAY GT 06/22/17 18:00 07/22/17 17:59 Heparin Sodium (Porcine) (Heparin 5000 units/ml) 5,000 units EVERY 12 HOURS SUBQ 06/21/17 09:00 07/21/17 08:59 06/22/17 09:19 Lactulose (Cephulac) 20 gm THREE TIMES A DAY ORAL 06/22/17 18:00 07/22/17 17:59 Lisinopril (Zestril) 2.5 mg DAILY GT 06/21/17 09:00 07/21/17 08:59 06/22/17 09:17 Lorazepam (Ativan 2mg/ml 1ml) 1 mg Q4H PRN IV agitation 06/20/17 23:30 06/27/17 23:29 Metoclopramide HCl (Reglan) 10 mg Q6H PRN IVP servere nauasea 06/20/17 23:30 07/20/17 23:29 Mineral Oil (Mineral Oil) 30 ml ONCE ONCE GT 06/22/17 17:00 06/22/17 17:01 Morphine Sulfate (Morphine Sulfate) 2 mg Q4H PRN IVP severe Pain (Pain Scale 7-10) 06/20/17 23:30 06/27/17 23:29 Nitroglycerin (Ntg) 0.4 mg Q5M X 3 DOSES PRN SL Prn Chest Pain 06/20/17 23:30 07/20/17 23:29 Ondansetron HCl (Zofran) 4 mg Q6H PRN IVP Nausea & Vomiting 06/20/17 23:30 07/20/17 23:29 Pantoprazole (Protonix) 40 mg DAILY IV 06/21/17 09:00 07/21/17 08:59 06/22/17 09:18 Polyethylene Glycol (Miralax) 17 gm HSPRN PRN GT Constipation 06/21/17 12:15 07/20/17 23:29 Polyethylene Glycol (Miralax) 17 gm QHS ORAL 06/22/17 21:00 07/22/17 20:59 Temazepam (Restoril) 15 mg HSPRN PRN GT Insomnia 06/21/17 21:00 06/28/17 20:59 ANIBAL WALSH Jun 22, 2017 17:02
[2017-06-22] MEDS ORDERED: Docusate 100mg/10ml Liq GT SCH (18:00)
[2017-06-22] MEDS ORDERED: Lactulose 20gm/30ml UDC ORAL SCH (18:00)
[2017-06-22] MEDS ORDERED: Miralax 17gm pkt ORAL SCH (21:00)
--- NOTE | 2017-06-24 08:39 | Discharge Summary ---
Discharge Summary Hospital Course Date of Admission Jun 20, 2017 at 22:48 Date of Discharge Jun 22, 2017 at 19:03 Admitting Diagnosis Malfunctioning gastric tube HPI Rubén Chen is a 52 year old male who was admitted on Jun 20, 2017 at 22: 48 for Malfuntioning Gastric Tube Hospital Course [id number] Discharge Discharge Disposition Patient was discharged to snf Discharge Diagnoses: Kita Song NP Jun 24, 2017 08:39
--- NOTE | 2017-06-25 | Discharge Summary 2 SIG ---
DATE OF ADMISSION: 06/20/2017 DATE OF DISCHARGE: 06/22/2017 CONSULTANTS: Elijah Gillis M.D. Brief Hospital Course: The patient is a 52-year-old male with history of CVA with hemiplegia with right-sided hemiparesis and prior trach, was taken to [facility] from a group home as G-tube fell off. On evaluation at ED, there were multiple attempts to re-insert G tube, however, from KUB, contrast was found in the stomach with residual contrast in the intestine. Another ED physician attempted to replace G-tube. Repeat KUB showed gastrostomy within the body of the stomach, however, radiologist suggested possibly placing a guidewire to move the tip through the pylorus. Procedure would need to be done by transaction processor. The patient was then admitted to medical floor and Dr. Gillis was consulted. Tube feedings was placed on hold. He was given IV hydration. Lipase was noted to be elevated. Abdominal ultrasound done, was essentially unremarkable. There was no gallstones or dilated ducts. Unable to fully visualize pancreatic tail. The location of the tip of GT unknown. CT of the abdomen and pelvis was done and showed gastrostomy tube in good position. There was also findings of fecal impaction. Tube feedings was then restarted. He was given bowel regimen consisting of MiraLAX, Colace, lactulose, and Fleet Enema. He had good bowel movements. Lipase levels persistently elevated, however, unlikely due to pancreatis. He was tolerating tube feedings and the patient was eventually discharged back to group home. FINAL DIAGNOSES: 1. Malfunction of gastrostomy tube, status post replacement. 2. Old cerebrovascular accident with right hemiparesis. 3. Anoxic brain damage syndrome. 4. Fecal impaction. DISPOSITION: The patient was discharged to [facility]. DISCHARGE MEDICATIONS: Refer to medication list. Bam Powell M.D. I have been assigned to dictate discharge summary on this account and I was not involved in the patient's management. Kita Song N.P. DR: DAYA JOB#: [id number] CC:
== END 2017-06-22 19:03 | DRG 252 ==
LOC: EDBD 17:57 → EMR 20:09 → 3E 22:48 → EDBEDREQ 06-21 00:45 → 3E 06-21 01:20
PROC: 0D20XUZ Change Feeding Device in Upper Intestinal Tract, External Approach (ICD-10-PCS; principal; 2017-06-20)
DX: K94.23 Gastrostomy malfunction (principal); G93.1 Anoxic brain damage, not elsewhere classified; K85.90 Acute pancreatitis without necrosis or infection, unspecified; I69.351 Hemiplegia and hemiparesis following cerebral infarction affecting right dominant side; K56.41 Fecal impaction
CPT/HCPCS: 36415; 43760; 51702; 74000; 74177; 76700; 80048; 80053; 81003; 82150; 82550; 83690; 85025; 85610; 85730; 87081; 99285

== ENCOUNTER 2017-07-28 12:48 | Emergency (ER) | payer MEDICAID ==
[~2017-07-28] VITALS: Ht 182.9 cm; Wt 86.2 kg
[2017-07-28 12:51] VITALS: BP 112/75
--- NOTE | 2017-07-28 13:22 | Emergency Room Report ---
History of Present Illness General Chief Complaint: Malfunctioning Gastric Tube Source: Patient, Medical Record Present Illness HPI 52-year-old male coming from alf, history of CVA, peg tube, nonverbal, presenting with PEG tube malfunction. Her charts, patient pulled out his G-tube , a Montemayor was put in its place her alf staff. 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 ESOPHAGITIS Hx Neurological Problems: Yes - Hemiplegia, hemiparesis, OA Hx Cerebrovascular Accident: Yes - RIGHT SIDE WEAKNESS Review of Systems All Other Systems: limited - nonverbal Physical Exam Vital Signs Date Time Temp Pulse Resp B/P (MAP) Pulse Ox O2 Delivery O2 Flow Rate FiO2 07/28/17 12:49 98.1 57 18 112/75 97 Room Air Sp02 EP Interpretation: reviewed, normal General Appearance: normal inspection, well appearing, no apparent distress, non-toxic Head: normocephalic, atraumatic Eyes: bilateral eye normal inspection, bilateral eye PERRL, bilateral eye EOMI ENT: normal ENT inspection, normal pharynx, normal voice, moist mucus membranes Neck: normal inspection, full range of motion, supple Respiratory: normal inspection, lungs clear, normal breath sounds, no respiratory distress, no retraction, no wheezing, speaking full sentences, chest symmetrical Cardiovascular #1: normal inspection, regular rate, rhythm, no edema, normal capillary refill Cardiovascular #2: 2+ radial (R), 2+ radial (L) Gastrointestinal: non tender, soft, non-distended, no guarding, other - montemayor noted, nontender abdome Musculoskeletal: normal inspection, back normal, non-tender Neurologic: other - +aphasia/nonverbal, looking around, intermittently nodding head yes/no. not ff commands Skin: normal inspection, normal color, no rash, warm/dry, well hydrated, normal turgor Medical Decision Making Diagnostic Impression: Primary Impression: Malfunction of gastrostomy tube ER Course 52-year-old male with a G-tube malfunction DDX: G-tube malfunction Plan: Replace G-tube Followup abdominal x-ray for placement ER course: 18 [place] G-tube replaced with ease Disposition: Patient is to be discharged to senior living facility Please note that this Emergency Department Report was dictated using [employer] t[employer] technology software, occasionally this can lead to erroneous entry secondary to interpretation by the dictation equipment Xray: KUB 1 view Indication: G tube EP Interpretation: Yes Interpretation: G tube in stomach Impression: G tube in stomach Electronically signed by Marie Marsh MD Last Vital Signs Date Time Temp Pulse Resp B/P (MAP) Pulse Ox O2 Delivery O2 Flow Rate FiO2 07/28/17 12:51 98.1 57 18 112/75 97 Room Air Disposition: XFER SHT-TRM HOSP Condition: Stable Patient Instructions: Gastrostomy Tube Home Guide, Adult Marie Marsh M.D. Jul 28, 2017 13:22
[2017-07-28 14:51] VITALS: BP 119/78
--- NOTE | 2017-07-28 14:54 | Diagnostic Imaging Report ---
Indication: Status post gastrostomy replacement Technique: Supine view of the abdomen after injection of water-soluble contrast into gastrostomy Comparison: none Findings: Contrast opacifies the stomach. No contrast extravasation is demonstrated. The bowel gas pattern is unremarkable. Previously demonstrated jejunostomy has been removed Impression: Satisfactory position of gastrostomy tube
[2017-07-28 16:51] VITALS: BP 121/77
[2017-07-28 17:58] VITALS: BP 112/82
== END 2017-07-28 17:58 ==
LOC: EDBD 12:48 → EMR 13:08
DX: K94.23 Gastrostomy malfunction (principal); Y83.3 Surgical operation with formation of external stoma as the cause of abnormal reaction of the patient, or of later complication, without mention of misadventure at the time of the procedure; Y92.129 Unspecified place in nursing home as the place of occurrence of the external cause; I10 Essential (primary) hypertension; I69.351 Hemiplegia and hemiparesis following cerebral infarction affecting right dominant side; R13.10 Dysphagia, unspecified; K21.9 Gastro-esophageal reflux disease without esophagitis
CPT/HCPCS: 43760; 74000; 99284; Q9963

== ENCOUNTER 2017-08-15 13:31 | Emergency (ER) | payer MEDICAID ==
[~2017-08-15] VITALS: Ht 180.3 cm; Wt 81.6 kg
[2017-08-15 14:40] VITALS: BP 148/68
[2017-08-15 16:58] VITALS: BP 138/66
--- NOTE | 2017-08-15 17:52 | Emergency Room Report ---
Physical Exam Vital Signs Date Time Temp Pulse Resp B/P (MAP) Pulse Ox O2 Delivery O2 Flow Rate FiO2 08/15/17 13:27 98.1 60 20 119/70 97 Room Air Medical Decision Making Diagnostic Impression: Primary Impression: PEG (percutaneous endoscopic gastrostomy) adjustment/replacement/removal ER Course See SREE Traylor for full history of present illness assessment plan. Patient is well-known to the ER for multiple visits for Ms. place G-tube. Patient also has had difficulty with G-tube placement in the ER. We tried 2 times to replace G-tube, both times G-tube appears to be in the duodenum. 2 risky to continue to try with repeat doses of by mouth contrast, Will need GI or general surgery for replacement of G-tube. Last Vital Signs Date Time Temp Pulse Resp B/P (MAP) Pulse Ox O2 Delivery O2 Flow Rate FiO2 08/15/17 16:58 98.0 74 18 138/66 98 Room Air Status: unchanged Disposition: ADMITTED INPATIENT Referrals: NON PHYSICIAN (PCP) KARY AKHTAR M.D. Aug 15, 2017 17:52
[2017-08-15 18:04] LABS: APPEARANCE,URINE CLOUDY; KETONES,URINE NEGATIVE (NEGATIVE); LEUKOCYTE ESTERASE ,URINE 2+ (NEGATIVE); NITRITE,URINE NEGATIVE (NEGATIVE); PH,URINE 8 (4.5-8.0); PROTEIN,URINE 1+ (NEGATIVE); UROBILINOGEN,URINE NORMAL MG/DL (0.0-1.0)
[2017-08-15 18:05] LABS: BASOPHILS % (AUTO) 2.2 % (0.0-2.0); EOSINOPHILS % (AUTO) 1.6 % (0.0-3.0); LYMPHOCYTES % (AUTO) 40.4 % (20.0-45.0); MEAN CORPUSCULAR HEMOGLOBIN 30.4 PG (27.0-31.0); MEAN CORPUSCULAR HGB CONC 32.6 G/DL (32.0-36.0); MEAN CORPUSCULAR VOLUME 93 FL (80-99); MEAN PLATELET VOLUME 5.9 FL (6.5-10.1); MONOCYTES % (AUTO) 8.8 % (1.0-10.0); NEUTROPHILS % (AUTO) 47.1 % (45.0-75.0); PLATELET COUNT 336 K/UL (150-450); RED CELL DISTRIBUTION WIDTH 11.6 % (11.6-14.8); WHITE BLOOD COUNT 5.9 K/UL (4.8-10.8)
[2017-08-15 18:21] LABS: RBC,URINE 0-2 /HPF (0 - 0)
[2017-08-15 18:22] LABS: BACTERIA,URINE MODERATE /HPF
[2017-08-15 18:25] LABS: ANION GAP 7 mmol/L (5-15); CALCIUM 10.1 MG/DL (8.5-10.1); CARBON DIOXIDE 29 MMOL/L (21-32); CHLORIDE 103 MMOL/L (98-107); CREATININE 1.1 MG/DL (0.55-1.30); GLOMERULAR FILTRATION RATE > 60 mL/min (>60); POTASSIUM 4.2 MMOL/L (3.5-5.1); SODIUM 139 MMOL/L (136-145)
[2017-08-15 18:29] LABS: ALANINE AMINOTRANSFERASE 33 U/L (12-78); ALBUMIN/GLOBULIN RATIO 0.8 (1.0-2.7); ASPARTATE AMINO TRANSFERASE 21 U/L (15-37); LIPASE 308 U/L (73-393); TOTAL PROTEIN 8.7 G/DL (6.4-8.2)
[2017-08-15 18:30] LABS: PROTHROMBIN TIME 10.5 SEC (9.30-11.50)
[2017-08-15] MEDS ORDERED: DULCOLAX10 MG RC (18:33)
[2017-08-15] MEDS ORDERED: NITROGLYCERIN0.4 MG SL (18:33)
[2017-08-15] MEDS ORDERED: MOM30 ML GT (18:33)
[2017-08-15] MEDS ORDERED: COLACE100 MG ORAL (18:33)
[2017-08-15 19:14] VITALS: BP 126/70
[2017-08-15 20:24] VITALS: BP 120/78
--- NOTE | 2017-08-15 21:13 | Emergency Room Report ---
History of Present Illness General Chief Complaint: Malfunctioning Gastric Tube Source: Medical Record, EMS Present Illness HPI The patient is a 52-year-old male brought in by EMS from nursing facility for PEG tube malfunction. They state that the patient pulled the tube out today. They put in a Lazaro as replacement and sent the patient here for replacement. They state that he usually has an 18 Romansh G-tube. 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 Hx Neurological Problems: Yes - Hemiplegia, hemiparesis, OA Hx Cerebrovascular Accident: Yes - RIGHT SIDE WEAKNESS Review of Systems All Other Systems: limited Physical Exam Vital Signs Date Time Temp Pulse Resp B/P (MAP) Pulse Ox O2 Delivery O2 Flow Rate FiO2 08/15/17 13:27 98.1 60 20 119/70 97 Room Air Sp02 EP Interpretation: reviewed, normal General Appearance: no apparent distress, alert, GCS 15, non-toxic Head: normocephalic, atraumatic Eyes: bilateral eye normal inspection, bilateral eye PERRL ENT: hearing grossly normal, normal pharynx, no angioedema, normal voice Respiratory: chest non-tender, lungs clear, normal breath sounds, speaking full sentences Cardiovascular #1: regular rate, rhythm, no edema Gastrointestinal: soft, no mass, other - Stoma site has lazaro in-place. No erythema. No DC. Neurologic: alert, responsive - nods head to questions, sensory intact Skin: normal color, no rash, warm/dry, well hydrated Medical Decision Making PA Attestation Dr. Uribe is my supervising physician. Patient management was discussed with my supervising physician Diagnostic Impression: Primary Impression: PEG (percutaneous endoscopic gastrostomy) adjustment/replacement/removal ER Course The patient is a 52-year-old male brought in by EMS from nursing facility for PEG tube malfunction. DDx considered but not limited to: G tube malfunction, stoma closure, cellulitis , among others PE: Afebrile. NAD Pt is alert. Abd: stoma site is clean. No erythema. No DC. Non tender. Lazaro in place The stoma site was cleaned with betadine. Lazaro removed. Site again cleaned and I preceded in sterile fashion. New 18 burundian tube was placed without resistance. 20cm balloon inflated with NS. Pt tolerated well. KUB shows tube possibly in duodenum Procedure was done again in same fashion at approximately 3-4cm in depth. Again , KUB inconclusive. CT abd shows adequate placement. He will be DC'ed back to nursing facility. Laboratory Tests Test 08/15/17 17:33 08/15/17 17:40 White Blood Count 5.9 K/UL (4.8-10.8) Red Blood Count 5.00 M/UL (4.70-6.10) Hemoglobin 15.2 G/DL (14.2-18.0) Hematocrit 46.5 % (42.0-52.0) Mean Corpuscular Volume 93 FL (80-99) Mean Corpuscular Hemoglobin 30.4 PG (27.0-31.0) Mean Corpuscular Hemoglobin Concent 32.6 G/DL (32.0-36.0) Red Cell Distribution Width 11.6 % (11.6-14.8) Platelet Count 336 K/UL (150-450) Mean Platelet Volume 5.9 FL (6.5-10.1) L Neutrophils (%) (Auto) 47.1 % (45.0-75.0) Lymphocytes (%) (Auto) 40.4 % (20.0-45.0) Monocytes (%) (Auto) 8.8 % (1.0-10.0) Eosinophils (%) (Auto) 1.6 % (0.0-3.0) Basophils (%) (Auto) 2.2 % (0.0-2.0) H Prothrombin Time 10.5 SEC (9.30-11.50) Prothrombin Time INR 1.0 (0.9-1.1) PTT 32 SEC (23-33) Sodium Level 139 MMOL/L (136-145) Potassium Level 4.2 MMOL/L (3.5-5.1) Chloride Level 103 MMOL/L (98-107) Carbon Dioxide Level 29 MMOL/L (21-32) Anion Gap 7 mmol/L (5-15) Blood Urea Nitrogen 12 mg/dL (7-18) Creatinine 1.1 MG/DL (0.55-1.30) Estimate Glomerular Filtration Rate > 60 mL/min (>60) Glucose Level 88 MG/DL (74-106) Calcium Level 10.1 MG/DL (8.5-10.1) Total Bilirubin 0.5 MG/DL (0.2-1.0) Aspartate Amino Transferase (AST) 21 U/L (15-37) Alanine Aminotransferase (ALT) 33 U/L (12-78) Alkaline Phosphatase 92 U/L (46-116) Total Protein 8.7 G/DL (6.4-8.2) H Albumin 3.9 G/DL (3.4-5.0) Globulin 4.8 g/dL Albumin/Globulin Ratio 0.8 (1.0-2.7) L Lipase 308 U/L (73-393) Urine Color Yellow Urine Appearance Cloudy Urine pH 8 (4.5-8.0) Urine Specific Rachel 1.010 (1.005-1.035) Urine Protein 1+ (NEGATIVE) H Urine Glucose (UA) Negative (NEGATIVE) Urine Ketones Negative (NEGATIVE) Urine Occult Blood Negative (NEGATIVE) Urine Nitrite Negative (NEGATIVE) Urine Bilirubin Negative (NEGATIVE) Urine Urobilinogen Normal MG/DL (0.0-1.0) Urine Leukocyte Esterase 2+ (NEGATIVE) H Urine RBC 0-2 /HPF (0 - 0) H Urine WBC 5-10 /HPF (0 - 0) H Urine Squamous Epithelial Cells None /LPF (NONE/OCC) Urine Bacteria Moderate /HPF (NONE) H Lab Results Impression blood work unremarkable. No leukoctyosis Other X-Ray Diagnostic Results Other X-Ray Diagnostic Results #1: X-Ray ordered: KUB # of Views/Limited Vs Complete: 1 View Indication: Other - G tube placement EP Interpretation: Yes PA Xray: Interpretation reviewed, by supervising MD, and agrees with findings. Interpretation: no dislocation, no soft tissue swelling, no fractures, nonspecific bowel gas, no sbo, other - G tube possibly in duodenum Impression: No acute disease Electronically Signed by: Scott Hermosillo PA-C Other X-Ray Diagnostic Results #2: X-Ray ordered: KUB # of Views/Limited Vs Complete: 1 View Indication: Other - G tube placement EP Interpretation: Yes SREE Xray: Interpretation reviewed, by supervising MD, and agrees with findings. Interpretation: no dislocation, no soft tissue swelling, no fractures, nonspecific bowel gas, no sbo, other - Possible placement in duodenum Impression: No acute disease Electronically Signed by: Scott Hermosillo PA-C CT/MRI/US Diagnostic Results CT/MRI/US Diagnostic Results : Imaging Test Ordered: CT abdomen Impression Satisfactory position of gastrostomy. No radiographically evident complications of placement No acute abnormality Decreased pericardial fluid, since 06/21/2017 Cardiomegaly Slight distal esophageal wall thickening, nonspecific, esophagitis a possibility Last Vital Signs Date Time Temp Pulse Resp B/P (MAP) Pulse Ox O2 Delivery O2 Flow Rate FiO2 08/15/17 20:24 98.0 68 18 120/78 99 Room Air Status: improved Disposition: XFER SNF Condition: Improved Referrals: NON PHYSICIAN (PCP) Patient Instructions: Gastrostomy Tube Home Guide, Adult Additional Instructions: I discussed my findings with the patient. All questions and concerns have been answered. Treatment and medication compliance have been addressed. SCOTT HERMOSILLO Aug 15, 2017 21:13
--- NOTE | 2017-08-16 09:09 | Diagnostic Imaging Report ---
Indication: PAIN . Status post gastrostomy replacement Technique: Supine view of the abdomen after injection of water-soluble contrast into gastrostomy Comparison: none Findings: Contrast opacifies the duodenum. No contrast extravasation is demonstrated. The bowel gas pattern is unremarkable. The gastrostomy balloon is probably within the gastric antrum Impression: Satisfactory position of gastrostomy tube This agrees with the preliminary interpretation provided overnight by [facility].
--- NOTE | 2017-08-16 09:19 | Diagnostic Imaging Report ---
Indication: Status post gastrostomy replacement Technique: Supine view of the abdomen after injection of water-soluble contrast into gastrostomy Comparison: One hour earlier Findings: Contrast opacifies the proximal duodenum. As the stomach is not opacified, the balloon position is indeterminate. No contrast extravasation is demonstrated. The bowel gas pattern is unremarkable. Impression: Apparent satisfactory position of gastrostomy tube, tip in the duodenum. Balloon position indeterminate
--- NOTE | 2017-08-16 09:47 | Diagnostic Imaging Report ---
Indication: ABD PAIN, difficulty inserting gastrostomy tube, status post gastrostomy replacement Technique: No IV contrast, reason not stated. No enteric contrast utilized. Spiral acquisitions obtained through the abdomen Multiplanar reconstructions were generated. Total dose length product 704 mGycm. CTDIvol(s) 19 mGy. Radiation dose was minimized using automated exposure control Comparison: 06/21/2017 Findings: Gastrostomy shaft enters the distal gastric antrum. The balloon is either in the antrum or the duodenal bulb. Position appears satisfactory and unchanged. Contrast from recent gastrostomy injection is are seen predominantly within the colon, some within the small bowel. The visualized small bowel is nondilated. The appendix is normal. No evidence of contrast extravasation is demonstrated. The lack of IV contrast limits assessment of solid organs. The liver, gallbladder, bile ducts, pancreas, spleen, adrenals, kidneys are unremarkable. No retroperitoneal or mesenteric mass or adenopathy. Previously reported pericardial fluid has decreased, now minimal. The heart is borderline enlarged There is slight distal esophageal wall thickening. Some posterior dependent atelectatic changes and scarring are seen at both lung bases. The bones are unremarkable. Impression: Satisfactory position of gastrostomy. No radiographically evident complications of placement No acute abnormality Decreased pericardial fluid, since 06/21/2017 Cardiomegaly Slight distal esophageal wall thickening, nonspecific, esophagitis a possibility Dependent atelectasis This agrees with the preliminary interpretation provided overnight by [facility]. The CT scanner at [facility] is accredited by the [employer] and the scans are performed using protocols designed to limit radiation exposure to as low as reasonably achievable to attain images of sufficient resolution adequate for diagnostic evaluation.
== END 2017-08-15 20:25 ==
LOC: EDBD 13:31 → EMR 13:59 → CANBEDREQ 19:23 → EMR 20:25
DX: Z43.1 Encounter for attention to gastrostomy (principal); I10 Essential (primary) hypertension; I69.151 Hemiplegia and hemiparesis following nontraumatic intracerebral hemorrhage affecting right dominant side; K21.9 Gastro-esophageal reflux disease without esophagitis; Z86.74 Personal history of sudden cardiac arrest; I42.9 Cardiomyopathy, unspecified
CPT/HCPCS: 36415; 74000; 74150; 80053; 81003; 83690; 85025; 85610; 85730; 87081; 87086; 87181; 96374; 99284; Q9963